=== PATIENT | female | born 1995 | race African-American/Black ===

== ENCOUNTER 2022-12-02 00:03 | Emergency (ER) | payer SELFPAY ==
--- OUTSIDE RECORDS SUMMARY | 2022-12-02 00:09 | XMS REPORT | Continuity of Care Document ---
:1995 Author Organization [facility] t Address [address] [facility]. [address] [place] [address] Care Team Providers Name Role Phone FOUND, PCP NOT Primary Care Physician Unavailable JENNIFER NEVAREZ Attending Clinician Unavailable Steven Narayanan MD Attending Clinician POP ANDERSON Attending Clinician Unavailable STEVEN NARAYANAN Attending Clinician Unavailable Doctor Unassigned, [place]ta Attending Clinician Unavailable Hang FLORES, Lachelle Dent Attending Clinician Unavailable Jennifer Nevarez PA-C Attending Clinician OMKAR GÓMEZ Attending Clinician Unavailable SHAYE KHAN Attending Clinician Unavailable BELINDA DIALLO - Attending Clinician Unavailable DESTINY ERIC Attending Clinician Unavailable ROSALES PALM Attending Clinician Unavailable Court MUSAPDestiny Attending Clinician Cindy ORACLE E BUSINESS DEVELOPER, Brissa R Attending Clinician BRISSA WHITE Attending Clinician Unavailable KAT CASEY Attending Clinician Unavailable [facility]ending [facility]ician Unavailable Renzo Valerio RN, Angy Attending Clinician Unavailable MARTIN MAHAJAN Attending Clinician Unavailable Margarita HERNANDEZ, Lenard Escalante Attending Clinician Ronnie Davis MD Attending Clinician Avtar FLORES, Noemi Phillip Attending Clinician Unavailable Colleen Becerra MD Attending Clinician Martin Mahajan MD Attending Clinician MARNI BELCHER Attending Clinician Unavailable Shanice FLORES, Darcy Hernandez Attending Clinician Unavailable BALBINA INMAN Attending Clinician Unavailable NOREEN FLOREZ Attending Clinician Unavailable 2, [facility] Attending Clinician Unavailable Kamille HERNANDEZ, David Jon Attending Clinician MORELIA CARVALHO Attending Clinician Unavailable Rachel FLORES, Leon Attending Clinician Unavailable [facility] Attending Clinician Unavailable Noreen Florez MD Attending Clinician MEDINA IBARRA Attending Clinician Unavailable VINCENT GUILLEN Attending Clinician Unavailable Brandie Stevenson Attending Clinician Unavailable Gretchen Buckley Attending Clinician Unavailable Lakisha Lewis Attending Clinician Unavailable Lena Fuchs Attending Clinician Unavailable MARTIN MAHAJAN Admitting Clinician Unavailable BELINDA DIALLO - Admitting Clinician Unavailable Lenard Avila MD Admitting Clinician Martin Mahajan MD Admitting Clinician VINCENT GUILLEN Admitting Clinician Unavailable Payers Payer Name Policy Type Policy Number Effective Date Expiration Date S [id number] 2018 00:00:00 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) Pap smear Pap smear Disease Active Uni vers abnormalit abnormalit 09-23 it y of y of y of 00:00: [place] cervix cervix 00 Medical with ASCUS with ASCUS Br anch favoring favoring benign benign Missed Missed Disease Active Univers period period 09-23 ity of 00:00: [place] 00 Medical Branch Family Family Disease Active 2020-03 Univers planning planning 2- [place] Bipolar Bipolar Disease Active 2020-03 Univers affective affective 2- ity of disorder, disorder, 00:00: [place] currently currently 00 Medi malik depressed, depressed, Br anch mild mild Anemia of Anemia of Disease Active 2020-03 Uni vers mother in mother in 2-13 [place]y [place] , , [place] dical condition condition Bran ch Problem Problem [facility] S Health Allergies, Adverse Reactions, Alerts Allergy Allergy Status Severity Reaction(s) Onset Inactive Treating Comm ents Source Name Type Date Date Clinician No known Miscella Active U Not [facility] drug ne[facility] Specified 03-30 [facility] Allergie Allergy 12:05: l s 23 ([facility]) No known Miscella Active U Not Baptis t drug neous Specified 03-30 Hospita Allergie Allergy 12:05: l s 23 ([facility]) No known Miscella Active U Not Baptis t drug neous Specified 03-30 Hospita Allergie Allergy 12:05: l s 23 ([facility]) No known Miscella Active U Not Baptis t drug neous Specified 03-30 Hospita Allergie Allergy 12:05: l s 23 ([facility]) No Known NA Active [facility] Allergie 07-04 Hospita s 14:20: l 16 ([facility]) No Known NA Active [facility] Allergie 07-04 Hospita s 13:50: l 13 ([facility]) No Known NA Active [facility]ism Allergie 07-04 Hospita s 13:38: l 34 ([facility]) NO KNOWN Drug Active Univers ALLERGIE Class ity of S [facility] Social History Social Habit Start Date Stop Date Quantity Comments Source History of Cigarette Smoker Universi ty of tobacco use [facility] Alcohol intake 2021-12-03 2021-12-03 Ex-drinker [facility] 00:00:00 00:00:00 (finding) [facility] Exposure to 2021-11-18 2021-11-28 Not sure [facility] SARS-CoV-2 00:00:00 10:27:00 [facility] (event) Branch Tobacco use and 2021-11-28 2021-11-28 Smokeless tobacco Un iversity of exposure 00:00:00 00:00:00 non-user [facility] time of call 2020-05-30 2020-05-30 05/30/2020 11:28 [facility] 11:28:40 11:28:40 AM Health Sex Assigned At [address] [facility] 00:00:00 00:00:00 Smoking Status Start Date Stop Date Source Unknown if ever smoked [facility] Ex-smoker 2021-11-28 00:00:00 2021-11-28 00:00:[address] [facility] Never smoked [facility] Medications Ordered Filled Start Stop Current Ordering Indication Dosage Frequency Signature Comments Components Source Medication Medication Date Date Medication? Clinician (SIG) Name Name valLonnieovi 2021-03 Yes [id number] 500mg Take 1 Univers r 500 mg 23 tablet by ity of tablet 00:00: mouth in [place] 00 the Medical morning Branch and 1 tablet in the evening. Take 1 tablet BID for 1 week followed by 1 tablet once daily until delivery metroNIDAZO 2021-03- 500mg Take 1 Un kenzie LE (FLAGYL) 04-21 tablet by it y of 500 mg 00:00: 05:59 mouth [place] tablet 00 :00 every 12 Medical (twelve) Branch hours for 7 days. SERTraline 2020-03 Yes 50mg Take 50 mg U nivers 50 mg 2-13 by mouth ity of tablet 14:35: daily. [place] 24 Medical Branch lurasidone 2020-03 Yes 20mg Take 20 mg U nivers (LATUDA) 20 2-13 by mouth. ity of mg tablet 14:35: [address] SERTraline 2020-03 Yes 50mg Take 50 mg U nivers 50 mg 2-13 by mouth ity of tablet 14:35: daily. [address] lurasidone 2020-03 Yes 20mg Take 20 mg U nivers (LATUDA) 20 2-13 by mouth. ity of mg tablet 14:35: [address] SERTraline 2020-03 Yes 50mg Take 50 mg U nivers 50 mg 2-13 by mouth ity of tablet 14:35: daily. [address] lurasidone 2020-03 Yes 20mg Take 20 mg U nivers (LATUDA) 20 2-13 by mouth. ity of mg tablet 14:35: [address] SERTraline 2020-03 Yes 50mg Take 50 mg U nivers 50 mg 2-13 by mouth ity of tablet 14:35: daily. [address] lurasidone 2020-03 Yes 20mg Take 20 mg U nivers (LATUDA) 20 2-13 by mouth. ity of mg tablet 14:35: [address] SERTraline 2020-03 Yes 50mg Take 50 mg U nivers 50 mg 2-13 by mouth ity of tablet 14:35: daily. [address] lurasidone 2020-03 Yes 20mg Take 20 mg U nivers (LATUDA) 20 2-13 by mouth. ity of mg tablet 14:35: [address] SERTraline 2020-03 Yes 50mg Take 50 mg U nivers 50 mg 2-13 by mouth ity of tablet 14:35: daily. [address] lurasidone 2020-03 Yes 20mg Take 20 mg U nivers (LATUDA) 20 2-13 by mouth. ity of mg tablet 14:35: [address] ferrous 2020-03 Yes [id number] 325mg Take 1 Un kenzie sulfate 325 0-18 tablet by ity of mg (65 mg 00:00: mouth 2 [place] iron) 00 (two) Medical tablet times [place] daily. 2020-03 Yes [id number] 1{tbl} Take 1 Univers vitamin 0-18 tablet by ity of w/FA tablet 00:00: mouth [place] 00 daily. Medical Branch docusate 2020-03 Yes [id number] 240mg Take 1 U nivers calcium 240 0-18 capsule by it y of mg capsule 00:00: mouth [place] 00 daily as Medical needed for Branch Constipati on. HYDROcodone 2020-03 Yes [id number] 1{tbl} Take 1 Un kenzie -acetaminop 0-18 tablet by ity of hen 5-325 00:00: mouth [place] mg tablet 00 every 6 Medical (six) Branch hours as needed (Pain scale above 4). Do not exceed 3 grams of acetaminop hen in 24 hours. Indication s: acute pain ibuprofen 2020-03 Yes [id number] 600mg Take 1 Univers 600 mg 0-18 tablet by ity of tablet 00:00: mouth [place] 00 every 6 Medical (six) Branch hours as needed (Pain). Take with food or milk. ferrous 2020-03 Yes [id number] 325mg Take 1 Un k[place] sulfate 325 0-18 tablet by ity of mg (65 mg 00:00: mouth 2 [place] iron) 00 (two) Medical tablet times Branch daily. 2020-03 Yes [id number] 1{tbl} Take 1 Univers vitamin 0-18 tablet by ity of w/FA tablet 00:00: mouth [place] 00 daily. Medical Branch docusate 2020-03 Yes [id number] 240mg Take 1 U nivers calcium 240 0-18 capsule by it y of mg capsule 00:00: mouth once [place] 00 daily as Medical needed for Branch Constipati on. HYDROcodone 2020-03 Yes [id number] 1{tbl} Take 1 Un kenzie -acetaminop 0-18 tablet by ity of hen 5-325 00:00: mouth [place] mg tablet 00 every 6 Medical (six) Branch hours as needed (Pain scale above 4). Do not exceed 3 grams of acetaminop hen in 24 hours. Indication s: acute pain ibuprofen 2020-03 Yes [id number] 600mg Take 1 Univers 600 mg 0-18 tablet by ity of tablet 00:00: mouth [place] 00 every 6 Medical (six) Branch hours as needed (Pain). Take with food or milk. ferrous 2020-03 Yes [id number] 325mg Take 1 Un [place] sulfate 325 0-18 tablet by ity of mg (65 mg 00:00: mouth 2 [place] iron) 00 (two) Medical tablet times Branch daily. 2020-03 Yes [id number] 1{tbl} Take 1 Univers vitamin 0-18 tablet by ity of w/FA tablet 00:00: mouth [place] 00 daily. Medical Branch docusate 2020-03 Yes [id number] 240mg Take 1 U nivers calcium 240 0-18 capsule by it y of mg capsule 00:00: mouth once [place] 00 daily as Medical needed for Branch Constipati on. HYDROcodone 2020-03 Yes [id number] 1{tbl} Take 1 Un kenzie -acetaminop 0-18 tablet by ity of hen 5-325 00:00: mouth [place] mg tablet 00 every 6 Medical (six) Branch hours as needed (Pain scale above 4). Do not exceed 3 grams of acetaminop hen in 24 hours. Indication s: acute pain ibuprofen 2020-03 Yes [id number] 600mg Take 1 Univers 600 mg 0-18 tablet by ity of tablet 00:00: mouth [place] 00 every 6 Medical (six) Branch hours as needed (Pain). Take with food or milk. ferrous 2020-03 Yes [id number] 325mg Take 1 Un [place] sulfate 325 0-18 tablet by ity of mg (65 mg 00:00: mouth 2 [place] iron) 00 (two) Medical tablet times Branch daily. 2020-03 Yes [id number] 1{tbl} Take 1 Univers vitamin 0-18 tablet by ity of w/FA tablet 00:00: mouth [place] 00 daily. Medical Branch docusate 2020-03 Yes [id number] 240mg Take 1 U nivers calcium 240 0-18 capsule by it y of mg capsule 00:00: mouth once [place] 00 daily as Medical needed for Branch Constipati on. HYDROcodone 2020-03 Yes [id number] 1{tbl} Take 1 Un kenzie -acetaminop 0-18 tablet by ity of hen 5-325 00:00: mouth [place] mg tablet 00 every 6 Medical (six) Branch hours as needed (Pain scale above 4). Do not exceed 3 grams of acetaminop hen in 24 hours. Indication s: acute pain ibuprofen 2020-03 Yes [id number] 600mg Take 1 Univers 600 mg 0-18 tablet by ity of tablet 00:00: mouth [place] 00 every 6 Medical (six) Branch hours as needed (Pain). Take with food or milk. ferrous 2020-03 Yes [id number] 325mg Take 1 Un k[place] sulfate 325 0-18 tablet by ity of mg (65 mg 00:00: mouth 2 [place] iron) 00 (two) Medical tablet times Branch daily. 2020-03 Yes [id number] 1{tbl} Take 1 Univers vitamin 0-18 tablet by ity of w/FA tablet 00:00: mouth [place] 00 daily. Medical Branch docusate 2020-03 Yes [id number] 240mg Take 1 U nivers calcium 240 0-18 capsule by it y of mg capsule 00:00: mouth once [place] 00 daily as Medical needed for Branch Constipati on. HYDROcodone 2020-03 Yes [id number] 1{tbl} Take 1 Un kenzie -acetaminop 0-18 tablet by ity of hen 5-325 00:00: mouth [place] mg tablet 00 every 6 Medical (six) Branch hours as needed (Pain scale above 4). Do not exceed 3 grams of acetaminop hen in 24 hours. Indication s: acute pain ibuprofen 2020-03 Yes [id number] 600mg Take 1 Univers 600 mg 0-18 tablet by ity of tablet 00:00: mouth [place] 00 every 6 Medical (six) Branch hours as needed (Pain). Take with food or milk. ferrous 2020-03 Yes [id number] 325mg Take 1 Un [place] sulfate 325 0-18 tablet by ity of mg (65 mg 00:00: mouth 2 [place] iron) 00 (two) Medical tablet times Branch daily. 2020-03 Yes [id number] 1{tbl} Take 1 Univers vitamin 0-18 tablet by ity of w/FA tablet 00:00: mouth [place] 00 daily. Medical Branch docusate 2020-03 Yes [id number] 240mg Take 1 U nivers calcium 240 0-18 capsule by it y of mg capsule 00:00: mouth once [place] 00 daily as Medical needed for Branch Constipati on. HYDROcodone 2020-03 Yes [id number] 1{tbl} Take 1 Un kenzie -acetaminop 0-18 tablet by ity of hen 5-325 00:00: mouth [place] mg tablet 00 every 6 Medical (six) Branch hours as needed (Pain scale above 4). Do not exceed 3 grams of acetaminop hen in 24 hours. Indication s: acute pain ibuprofen 2020-03 Yes [id number] 600mg Take 1 Univers 600 mg 0-18 tablet by ity of tablet 00:00: mouth [place] 00 every 6 Medical (six) Branch hours as needed (Pain). Take with food or milk. valACYclovi 2020-03 Yes [id number] 500mg Take 1 Univers r 500 mg 0-12 tablet by ity of tablet 00:00: mouth 2 (two) Medical times Branch daily. Take 1 tablet BID for 1 week followed by 1 tablet once daily until delivery valACYclovi 2020-03 Yes [id number] 500mg Take 1 Univers r 500 mg 0-12 tablet by ity of tablet 00:00: mouth 2 (two) Medical times Branch daily. Take 1 tablet BID for 1 week followed by 1 tablet once daily until delivery valACYclovi 2020-03 Yes [id number] 500mg Take 1 Univers r 500 mg 0-12 tablet by ity of tablet 00:00: mouth 2 (two) Medical times Branch daily. Take 1 tablet BID for 1 week followed by 1 tablet once daily until delivery valACYclovi 2020-03 Yes [id number] 500mg Take 1 Univers r 500 mg 0-12 tablet by ity of tablet 00:00: mouth 2 (two) Medical times Branch daily. Take 1 tablet BID for 1 week followed by 1 tablet once daily until delivery valACYclovi 2020-03 Yes [id number] 500mg Take 1 Univers r 500 mg 0-12 tablet by ity of tablet 00:00: mouth 2 (two) Medical times Branch daily. Take 1 tablet BID for 1 week followed by 1 tablet once daily until delivery valACYclovi 2020-03- No [id number] 500mg Take 1 Univers r 500 mg 0-12 - tablet by ity o f tablet 00:00: 00:00 mouth 2 [place] 00 : (two) Medical times Branch daily. Take 1 tablet BID for 1 week followed by 1 tablet once daily until delivery Cephalexin 2020-03 No 500mg MIGUE U (Keflex) 0-08 SSTELIZ 500 Mg CAP 14:11: 00 Cephalexin 2020-03 No 500mg Four Times [facility] (Keflex) 0-08 Daily for S 500 Mg CAP 14:11: Health Cephalexin 2021-1 2021- No 500mg Four Times [facility] (Keflex) 0-08 10-16 Daily for S 500 Mg CAP 14:11: 00:00 [facility] 00 :00 Cephalexin 2020-1 1- No 500mg Four Times CHRISTU (Keflex) 0-08 10-16 Daily for S 500 Mg CAP 14:11: 00:00 [facility] 00 :00 Cephalexin 2020-0 No 500mg MIGUE U (Keflex) 6-10 SSTELIZ 500 Mg CAP 17:08: 00 Cephalexin 2020-0 No 500mg MIGUE U (Keflex) 6-10 SSTELIZ 500 Mg CAP 17:08: 00 Cephalexin 2020-0 No 500mg Every 8 CHR ISTU (Keflex) 6-10 Hours S 500 Mg CAP 17:08: Health 00 Cephalexin 2020-0 No 500mg Every 8 CHR ISTU (Keflex) 6-10 Hours S 500 Mg CAP 17:08: Health 00 Cephalexin 2020-0 2021- No 500mg LAUREN TU (Keflex) 09-06-11 SSTELIZ 500 Mg CAP 17:08: 00:00 00 :00 Cephalexin 2020-0 2021- No 500mg LAUREN TU (Keflex) 09-06 07-11 SSTELIZ 500 Mg CAP 17:08: 00:00 00 :00 Cephalexin 1-0 2021- No 500mg Every 8 CH RISTU (Keflex) 6 07-11 Hours S 500 Mg CAP 17:08: 00:00 Health 00 :00 Cephalexin 1-0 2021- No 500mg Every 8 CH RISTU (Keflex) 09-06 07-11 Hours S 500 Mg CAP 17:08: 00:00 Health 00 :00 Cephalexin 2021-0 2021- No 500mg Every 8 CH RISTU (Keflex) 09-06 07-11 Hours S 500 Mg CAP 17:08: 00:00 Health 00 :00 Cephalexin 2021-0 2021- No 500mg Every 8 CH RISTU (Keflex) 09-06 07-11 Hours S 500 Mg CAP 17:08: 00:00 Health 00 :00 No Home No [facility] Meds SSTELIZ No Home No [facility] Meds SSTELIZ No Home No [facility] No Home No [facility] No Home No [facility] No Home No [facility] Health Immunizations Ordered Filled Immunization Date Status Comments [facility] e Immunization Name Name Influenza Virus 2021-02-06 Completed Universit y of Vaccine [facility], 00:00:00 [place] Me dical Preserv and ABX Branch Free 6 MO-64 YRS Influenza Virus 2021-02-06 Completed Universit y of Vaccine [facility] IM, 00:00:00 [place] Me dical Preserv and ABX Branch Free 6 MO-64 YRS Influenza Virus 2021-02-06 Completed Universit y of Vaccine [facility] IM, 00:00:00 [place] Me dical Preserv and ABX Branch Free 6 MO-64 YRS Influenza Virus 2021-02-06 Completed Universit y of Vaccine [facility] IM, 00:00:00 [place] Me dical Preserv and ABX Branch Free 6 MO-64 YRS Influenza Virus 2021-02-06 Completed Universit y of Vaccine [facility] IM, 00:00:00 [place] Me dical Preserv and ABX Branch Free 6 MO-64 YRS Influenza Virus 2021-02-06 Completed Universit y of Vaccine [facility] IM, 00:00:00 [place] Me dical Preserv and ABX Branch Free 6 MO-64 YRS HPV9 2021-01-24 Completed University of 00:00:[address] [facility] HPV9 2021-01-24 Completed University of 00:00:[address] [facility] HPV9 2021-01-24 Completed University of 00:00:[address] [facility] HPV9 2021-01-24 Completed University of 00:00:[address] [facility] HPV9 2021-01-24 Completed University of 00:00:[address] [facility] HPV9 2021-01-24 Completed University of 00:00:[address] [facility] HPV9 2020-03-20 Completed University of 00:00:[address] [facility] HPV9 2020-03-20 Completed University of 00:00:[address] [facility] HPV9 2020-03-20 Completed University of 00:00:[address] [facility] HPV9 2020-03-20 Completed University of 00:00:00 [facility] Branch HPV9 2020-03-20 Completed University of 00:00:[address] [facility] HPV9 2020-03-20 Completed University of 00:00:[address] [facility] HPV9 2020-01-19 Completed University of 00:00:[address] [facility] HPV9 2020-01-19 Completed University of 00:00:[address] [facility] HPV9 2020-01-19 Completed University of 00:00:[address] [facility] HPV9 2020-01-19 Completed University of 00:00:[address] [facility] HPV9 2020-01-19 Completed University of 00:00:[address] [facility] HPV9 2020-01-19 Completed University of 00:00:[address] [facility] TDAP 2015-11-20 Completed University of 00:00:[address] [facility] TDAP 2015-11-20 Completed University of 00:00:[address] [facility] TDAP 2015-11-20 Completed University of 00:00:[address] [facility] TDAP 2015-11-20 Completed University of 00:00:[address] [facility] TDAP 2015-11-20 Completed University of 00:00:[address] [facility] TDAP 2015-11-20 Completed University of 00:00:[address] [facility] Influenza Virus 2015-06-18 Completed Universit y of Vaccine (3+ yrs) 00:00:00 [facility] Influenza Virus 2015-06-18 Completed Universit y of Vaccine (3+ yrs) 00:00:00 [facility] Influenza Virus 2015-06-18 Completed Universit y of Vaccine (3+ yrs) 00:00:00 [facility] Influenza Virus 2015-06-18 Completed Universit y of Vaccine (3+ yrs) 00:00:00 [facility] Influenza Virus 2015-06-18 Completed Universit y of Vaccine (3+ yrs) 00:00:00 [facility] Influenza Virus 2015-06-18 Completed Universit y of Vaccine (3+ yrs) 00:00:00 [facility] Vital Signs Vital Name Observation Time Observation Value Comments Source Systolic blood 2021-11-28 18:26:00 127 mm[Hg] Univer sity of pressure [facility] Diastolic blood 2021-11-28 18:26:00 81 mm[Hg] Unive rsity of pressure [facility] Heart rate 2021-11-28 18:26:00 104 /min [facility] Body height 2021-11-28 18:26:00 162.6 cm [facility] Body weight 2021-11-28 18:26:00 55.157 kg [facility] BMI 2021-11-28 18:26:00 20.87 kg/m2 [facility] BP Diastolic 2021-09-16 18:22:00 103 mm[Hg] [facility] BP Systolic 2021-09-16 18:22:00 147 mm[Hg] [facility] Heart Rate 2021-09-16 18:22:00 92 /min [facility] Respiratory rate 2021-09-16 18:22:00 18 /min [facility] Body Temperature 2021-09-16 18:22:00 98.6 [degF] [facility] BP Diastolic 2021-09-16 18:19:00 103 mm[Hg] [facility] BP Systolic 2021-09-16 18:19:00 147 mm[Hg] [facility] Heart Rate 2021-09-16 18:19:00 92 /min [facility] Respiratory rate 2021-09-16 18:19:00 18 /min [facility] Body Temperature 2021-09-16 18:19:00 98.6 [degF] [facility] BP Diastolic 2021-07-06 03:23:00 81 mm[Hg] [facility] BP Systolic 2021-07-06 03:23:00 133 mm[Hg] [facility] Heart Rate 2021-07-06 03:23:00 90 /min [facility] Respiratory rate 2021-07-06 03:23:00 19 /min [facility] Body Temperature 2021-07-06 03:23:00 98.1 [degF] [facility] BP Diastolic 2021-07-06 00:17:00 81 mm[Hg] [facility] BP Systolic 2021-07-06 00:17:00 133 mm[Hg] [facility] Heart Rate 2021-07-06 00:17:00 90 /min [facility] Respiratory rate 2021-07-06 00:17:00 19 /min [facility] Body Temperature 2021-07-06 00:17:00 98.1 [degF] [facility] BP Diastolic 2021-01-04 14:18:00 76 mm[Hg] [facility] BP Systolic 2021-01-04 14:18:00 126 mm[Hg] [facility] Heart Rate 2021-01-04 14:18:00 92 /min [facility] Respiratory rate 2021-01-04 14:18:00 18 /min [facility] Body Temperature 2021-01-04 14:18:00 98.5 [degF] [facility] BP Diastolic 2021-01-04 10:50:00 72 mm[Hg] [facility] BP Systolic 2021-01-04 10:50:00 116 mm[Hg] [facility] Heart Rate 2021-01-04 10:50:00 81 /min [facility] Respiratory rate 2021-01-04 10:50:00 18 /min [facility] Body Temperature 2021-01-04 10:50:00 98.5 [degF] [facility] BP Diastolic 2020-12-26 10:47:00 74 mm[Hg] [facility] BP Systolic 2020-12-26 10:47:00 128 mm[Hg] [facility] Heart Rate 2020-12-26 10:47:00 82 /min [facility] Respiratory rate 2020-12-26 10:47:00 18 /min [facility] Body Temperature 2020-12-26 10:47:00 99.0 [degF] [facility] BP Diastolic 2020-09-22 15:10:00 70 mm[Hg] [facility] BP Systolic 2020-09-22 15:10:00 118 mm[Hg] [facility] Heart Rate 2020-09-22 15:10:00 80 /min [facility] Respiratory rate 2020-09-22 15:10:00 18 /min [facility] Body Temperature 2020-09-22 15:10:00 98.6 [degF] [facility] BP Diastolic 2020-09-06 17:21:00 75 mm[Hg] [facility] BP Systolic 2020-09-06 17:21:00 111 mm[Hg] [facility] Heart Rate 2020-09-06 17:21:00 71 /min [facility] Respiratory rate 2020-09-06 17:21:00 20 /min [facility] Body Temperature 2020-09-06 17:21:00 98.6 [degF] [facility] BP Diastolic 2020-09-06 11:55:00 75 mm[Hg] [facility] BP Systolic 2020-09-06 11:55:00 111 mm[Hg] [facility] Heart Rate 2020-09-06 11:55:00 71 /min [facility] Respiratory rate 2020-09-06 11:55:00 20 /min [facility] Body Temperature 2020-09-06 11:55:00 98.6 [degF] [facility] Procedures Procedure Date / Time Performing Clinician Source Performed DISCLOSURE AND CONSENT, 2021-11-28 05:01:00 Doctor Unassigned, N o [facility] MEDICAL AND SURGICAL Name Medical Bra [facility] PROCEDURES POCT TEST 2021-11-28 00:00:00 Steven Narayanan [facility] Ther/proph/diag inj 2020-12-27 00:00:[address] [facility] SC/IM Betamethasone acet&sod 2020-12-27 00:00:00 [facility] phosp non-stress test 2020-12-26 00:00:00 [facility] outpt clinic 2020-12-26 00:00:00 [facility] visit Ther/proph/diag inj 2020-12-26 00:00:[address] [facility] SC/IM NON-STRESS TEST 2020-12-26 00:00:00 [facility] URINALYSIS AUTO W/SCOPE 2020-12-26 00:00:00 [facility] ASSAY OF 2020-12-26 00:00:00 [facility] FIBRONECTIN URINE CULTURE/COLONY 2020-12-26 00:00:[address] [facility] COUNT SARSCOV CORONAVIRUS AG 2020-12-26 00:00:00 [facility] outpt clinic 2020-12-26 00:00:00 [facility] visit Betamethasone acet&sod 2020-12-26 00:00:00 [facility] Terbutaline sulfate inj 2020-12-26 00:00:00 [facility] outpt clinic 2020-09-22 00:00:00 [facility] visit ROUTINE VENIPUNCTURE 2020-09-06 00:00:[address] [facility] OB US LIMITED FETUS(S) 2020-09-06 00:00:00 [facility] METABOLIC PANEL IONIZED 2020-09-06 00:00:00 [facility] CA URINALYSIS AUTO W/O 2020-09-06 00:00:[address] [facility] SCOPE CHORIONIC GONADOTROPIN 2020-09-06 00:00:00 [facility] TEST BLOOD TYPING SEROLOGIC 2020-09-06 00:00:00 [facility] ABO BLOOD TYPING SEROLOGIC 2020-09-06 00:00:00 [facility] RH(D) URINE CULTURE/COLONY 2020-09-06 00:00:[address] [facility] COUNT EMERGENCY DEPT VISIT 2020-09-06 00:00:[address] [facility] Limited obstetrical 2020-09-06 00:00:[address] [facility] ultrasound Plan of Care Planned Activity Planned Date Details Comments Source Future Scheduled Test Bacteria Ur Cult [code = JAZMYN 630-4] Future Scheduled Test Bacteria Ur Cult [code = JAZMYN 630-4] Future Scheduled Test Bacteria Ur Cult [code = JAZMYN 630-4] Goal Patient referral [code = [facility] 4970341 ] Goal Patient referral [code = [facility] 4844244 ] Goal Patient referral [code = [facility] 7540241 ] Goal Patient referral [code = [facility] 2911546 ] Instructions Threatened Miscarriage LAUREN CHERIETENATHANAEL Instructions Urinary Tract Infection, CHR ISTUSSTELIZ Adult (DC) Instructions Threatened Miscarriage LAUREN TUSSTENATHANAEL Instructions Urinary Tract Infection, CHR ISTUSSTELIPaola Adult (DC) Instructions Urinary Tract Infections CHR ISTALEX in Adults Instructions Labor JAZMYN Instructions Lowering Your Risk of MIGUE USSTELIPaola Instructions Threatened Miscarriage LAUREN TUSSTENATHANAEL Instructions Urinary Tract Infection, CHR ISTUSSTELIZ Adult (DC) Encounters Start End Encounter Admission Attending Care Care Encounter Source Date/Time Date/Time Type Type Clinicians Facility Department ID 2021-01-29 Outpatient X [facility] JOAO [id number] Univers 06:17:03 [facility] 2021-01-29 Emergency [facility] [id number] Univers 05:36:26 [facility] 2022-03-26 2022-03-26 Outpatient R ROQUE [facility] [id number] Univers 08:30:00 08:30:00 JENNIFER antonio [facility] 2022-02-19 2022-02-19 Telephone ORTIZ Narayanan 1.2.840.114 [id number] Univers 00:00:00 00:00:00 Steven L Y HEALTH 350.1.13.10 i [phone] [address] 2021-12-04 2021-12-04 [facility] [id number] Univers 08:30:00 08:30:00 POP antonio [facility] 2021-12-03 2021-12-03 Telephone ORTIZ Narayanan 1.2.840.114 [id number] Univers 00:00:00 00:00:00 Steven L Y HEALTH 350.1.13.10 i [place] [id number] [address] 2021-12-03 2021-12-03 Telephone ORTIZ Narayanan 1.2.840.114 [id number] Univers 00:00:00 00:00:00 Steven L HEALTH 350.1.13.10 i [place] [id number] [address] 2021-11-28 2021-11-28 [facility] [id number] Univers 10:00:00 14:12:05 [facility] 2021-11-28 2021-11-28 Office ORTIZ Narayanan 1.2.840.114 [id number] Univers 10:00:00 14:12:05 Visit Steven L HEALTH 350.1.13.10 i [place] [id number] [address] 2021-11-28 2021-11-28 Outpatient Amando [facility] [id number] Univers 10:00:00 14:12:05 [facility] 2021-11-28 2021-11-28 Orders Doctor BULL 1.2.840.114 [id number] Univers 00:00:00 00:00:00 Only Unassigned, VIK 350.1.13.10 ity of [place] [facility] 4.2.7.2.686 Moshe as [phone] [facility] [address] [place] 2021-11-18 2021-11-18 Outpatient [facility] [id number] Univers 13:40:00 13:40:00 STEVEN ity [facility] 2021-11-18 2021-11-18 Outpatient [facility] [id number] Univers 13:40:00 13:40:00 STEVEN ity [facility] 2021-11-18 2021-11-18 Telephone ORTIZ Narayanan 1.2.840.114 [id number] Univers 00:00:00 00:00:00 [facility] 350.1.13.10 i ty of [facility] [place].7.2.[place] [id number] [facility] [address] [place] 2021-10-20 2021-10-20 Patient [facility] 1.2.840.114 [id number] Univers 00:00:00 00:00:00 Secure Msg Lachelle Dent SORTER OPERATOR 350.1.13.10 ity of [facility] 4.2.7.2.686 Moshe as MATERNAL [phone] [facility] & CHILD [address] [place] [address] 2021-10-17 2021-10-17 Patient Doctor [facility] 1.2.840.114 [id number] Univers 00:00:00 00:00:00 Secure Msg Unassigned, SORTER OPERATOR 350.1.13.10 ity of [place] [facility] 4.2.7.2.686 Moshe as MATERNAL [phone] [facility] & CHILD [address] [place] [address] 2021-10-15 2021-10-15 Telephone [facility] 1.2.840.114 [id number] Univers 00:00:00 00:00:00 Jennifer SORTER OPERATOR 350.1.13.10 it y of [facility] 4.2.7.2.686 Moshe as MATERNAL [phone] [facility] & CHILD [address] [place] [address] 2021-10-14 2021-10-14 Case [facility] 1.2.710.118 [id number] Univers 00:00:00 00:00:00 Management Jennifer SORTER OPERATOR 350.1.13.10 ity of [facility] 4.2.7.2.686 Moshe as MATERNAL [phone] [address] 2021-09-23 2021-09-23 Office [facility] 1.2.613.264 [id number] Univers 15:30:00 17:10:11 Visit Jennifer SORTER OPERATOR 350.1.13.10 it y of [facility] 4.2.7.2.686 Moshe as MATERNAL [id number] [address] 2021-09-23 2021-09-23 [facility] [id number] Univers 15:30:00 17:10:11 [facility] 2021-09-23 2021-09-23 Outpatient [facility] [id number] Univers 15:30:00 15:30:00 [facility] 2021-09-23 2021-09-23 Orders Doctor JORGITO 1.2.840.114 [id number] Univers 00:00:00 00:00:00 Only Unassigned, VIK 350.1.13.10 ity of [place] [facility] 4.2.7.2.686 Moshe as [phone] [address] 2021-09-23 2021-09-23 Letter [facility] 1.2.691.366 [id number] Univers 00:00:00 00:00:00 (Out) Jennifer SORTER OPERATOR 350.1.13.10 it y of [facility] 4.2.7.2.686 Moshe as MATERNAL [phone] [address] 2021-09-16 2021-09-16 Registered NICHOLAS DRIVER [id number] [place] 18:17:00 20:11:00 Emergency OMKAR [address] [place] [address] 2021-07-06 2021-07-06 Departed SHAYE REYNA AE0 [id number] [place] 00:43:00 03:23:00 Emergency 16 S [facility] 2021-03-30 2021-03-30 [facility] [id number] MORAVIAN 18:04:00 20:42:00 Department S AMANDA UMON Patient T Visit HOSPITA L 2021-03-30 2021-03-30 Emergency YOEL, JOSÉ LUISET QER [id number] Zoroastrianism 12:04:00 12:04:00 DARRELLA Hospi ta l ([facility]) 2021-03-11 2021-03-11 Outpatient [facility] [id number] Univers 13:45:00 14:52:23 JENNIFER antonio [facility] 2021-03-11 2021-03-11 Outpatient [facility] [id number] Univers 13:45:00 14:52:23 JENNIFER antonio [facility] 2021-03-11 2021-03-11 Office [facility] 1.2.727.510 [id number] Univers 13:22:58 14:52:23 Visit Jennifer SORTER OPERATOR 350.1.13.10 it y of REGIONAL 4.2.7.2.686 Moshe as MATERNAL [id number] [facility]ILD [address] [place] [address] 2021-03-11 2021-03-11 Outpatient [facility] [id number] Univers 13:45:00 13:45:00 JENNIFER [facility] 2021-03-07 2021-03-07 Outpatient Amando ERIC [facility] [id number] Univers 10:30:00 10:30:00 DESTINY [facility] 2021-02-28 2021-02-28 Outpatient R ARPITA [facility] [id number] Univers 14:15:00 14:15:00 ROSALES lisandra [facility] 2021-02-14 2021-02-14 Office [facility] 1.2.678.280 [id number] Univers 09:01:57 10:06:29 Visit Jennifer SORTER OPERATOR 350.1.13.10 it y of REGIONAL 4.2.7.2.686 Moshe as MATERNAL [phone] Med ical & [address] 2021-02-14 2021-02-14 Outpatient Amando NEVAREZ [facility] [id number] Univers 09:00:00 10:06:29 JENNIFER [facility] 2021-02-14 2021-02-14 Outpatient Amando NEVAREZ [facility] [id number] Univers 09:00:00 09:00:00 JENNIFER [facility] 2021-02-14 2021-02-14 Orders Doctor JORGITO 1.2.840.114 [id number] Univers 00:00:00 00:00:00 Only Unassigned, VIK 350.1.13.10 ity of [place] [facility] 4.2.7.2.686 Moshe as [phone] [address] 2021-02-13 2021-02-13 Outpatient Amando ERIC [facility] [id number] Univers 15:00:00 15:00:[address] [facility] 2021-02-13 2021-02-13 [address] R [address] [facility] [id number] Univers 15:00:00 15:00:[address] [facility] 2021-02-13 2021-02-13 Telephone [facility] 1.2.305.975 [id number] Univers 00:00:00 00:00:00 Destiny SORTER OPERATOR 350.1.13.10 ity of [facility] 4.2.7.2.686 Moshe as MATERNAL [id number] [facility] & [address] 2021-02-11 2021-02-11 Telephone CourtRE[facility] 1.2.711.407 [id number] Univers 00:00:00 00:00:00 Destiny SORTER OPERATOR 350.1.13.10 ity of [facility] 4.2.7.2.686 Moshe as MATERNAL [id number] [facility] & CHILD [address] [place] [address] 2021-02-06 2021-02-06 Routine [facility] 1.2.840.114 [id number] Univers 14:00:15 15:09:26 Brissa R SORTER OPERATOR 350.1.13.10 ity of Visit [facility] 4.2.7.2.686 Moshe as MATERNAL [id number] [facility] & CHILD [address] [place] [address] 2021-02-06 2021-02-06 Outpatient R CINDY [facility] [id number] Univers 14:00:00 15:09:26 BRISSA [facility] 2021-02-02 2021-02-02 Emergency ER NICHOLAS CASEY [id number] [facility] 14:07:00 16:51:00 KAT 01 S Health 2021-01-31 2021-01-31 Telephone ORTIZ Narayanan 1.2.840.114 [id number] Univers 00:00:00 00:00:[address] [facility] 350.1.13.10 i ty of [place] [id number] [address] 2021-01-24 2021-01-24 [facility] 1.2 .840.114 [id number] Univers 13:00:49 13:47:54 Visit Destiny Eric SORTER OPERATOR 350.1.13.10 ity of REGIONAL 4.2.7.2.686 Moshe as MATERNAL [id number] [facility] & [address] 2021-01-24 2021-01-[address] [facility] [id number] Univers 13:00:00 13:47:54 DESTINY [facility] 2021-01-21 2021-01-21 Outpatient R [facility] [id number] Univers 08:30:00 08:30:00 [facility] 2021-01-21 2021-01-21 Telephone ORTIZ Narayanan 1.2.840.114 [id number] Univers 00:00:00 00:00:[address] [facility] 350.1.13.10 i ty [place] [id number] [address] 2021-01-18 2021-01-18 Nurse Renzo BULL 1.2.840.114 [id number] Univers 00:00:00 00:00:00 Triage VIK Valerio 350.1.13.10 ity [facility] 4.2.7.2.686 Moshe as [id number] [address] 2021-01-18 2021-01-18 Letter [facility] 1.2.840.114 [id number] Univers 00:00:00 00:00:00 (Out) Steven L Y HEALTH 350.1.13.10 i ty [place] [id number] [address] 2021-01-17 2021-01-17 Outpatient [facility] [id number] Univers 14:40:00 14:40:00 MARTIN [facility] 2021-01-17 2021-01-17 Outpatient [facility] [id number] Univers 13:30:00 13:30:00 [facility] 2021-01-15 2021-01-15 Nurse Renzo BULL 1.2.840.114 [id number] Univers 00:00:00 00:00:00 Triage VIK Valerio 350.1.13.10 ity [facility] 4.2.7.2.686 Moshe as [id number] [address] 2021-01-15 2021-01-15 Telephone [facility] 1.2.840.114 [id number] Univers 00:00:00 00:00:00 Steven L Y HEALTH 350.1.13.10 i ty of [place] [id number] [address] 2021-01-15 2021-01-15 Telephone [facility] 1.2.840.114 [id number] Univers 00:00:00 00:00:00 Steven L Y HEALTH 350.1.13.10 i ty of [place] [id number] [address] 2021-01-12 2021-01-14 [facility] Steven Narayanan 1.2.840. 114 [id number] Univers 18:31:00 18:06:00 Encounter Lenard Avila [facility] VIK 350.1.1 3.10 ity of HOSPITAL 4.2.7.2.686 Moshe as [id number] [facility] [address] 2021-01-13 2021-01-13 Anesthesia JORGITO Davis 1.2.840.114 [id number] Univers 20:01:23 20:01:23 Event Ronnie VIK 350.1.13.10 it y of HOSPITAL 4.2.7.2.686 Moshe as [id number] [facility] [address] 2021-01-12 2021-01-13 Surgery JORGITO Avila 1.2.840.114 [id number] Univers 22:50:00 00:43:00 Weinberg VIK 350.1.13.10 it y of [facility] 4.2.7.2.686 Moshe as [id number] [facility] [address] 2021-01-12 2021-01-12 Nurse JORGITO Nova 1.2.840.114 [id number] Univers 00:00:00 00:00:00 Triage Noemi Phillip VIK 350.1.13.10 ity of HOSPITAL 4.2.7.2.686 Moshe as [phone] [facility] [address] 2021-01-12 2021-01-12 Orders Doctor JORGITO 1.2.840.114 [id number] Univers 00:00:00 00:00:00 Only Unassigned, VIK 350.1.13.10 ity of [place] [facility]OSPITAL 4.2.7.2.686 Moshe as [id number] [facility] [address] 2021-01-09 2021-01-09 Orders Doctor JORGITO 1.2.840.114 [id number] Univers 00:00:00 00:00:00 Only Unassigned, VIK 350.1.13.10 ity of [place] HOSPITAL 4.2.7.2.686 Moshe as [phone] [facility] [address] 2021-01-06 2021-01-08 Hospital Colleen Becerra 1.2.840. 114 [id number] Univers 22:48:00 16:59:00 Encounter Martin Mahajan VIK 350.1.13.10 ity of HOSPITAL 4.2.7.2.686 Moshe as [id number] [facility] [address] 2021-01-04 2021-01-04 Departed CODY PETERSON [id number] [place] 11:17:00 14:24:[address] NATHANAEL Room [place] 2021-01-04 2021-01-04 Departed ER NICHOLAS BELCHER AE00 [id number] [place] 11:17:00 14:24:00 Emergency MARNI 79 S [facility] 2021-01-04 2021-01-04 Nurse JORGITO Prasad 1.2.840.114 [id number] Univers 00:00:00 00:00:00 Triage Darcy CHERY 350.1.13.10 it y of [facility] 4.2.7.2.686 Moshe as [id number] [facility] [address] 2021-01-04 2021-01-04 Telephone SHELLY Narayanan 1.2.840.114 [id number] Univers 00:00:00 00:00:00 Steven L Y HEALTH 350.1.13.10 i ty [place] [id number] [address] 2021-01-03 2021-01-03 Routine [facility] 1.2.840.114 [id number] Univers 15:54:06 16:48:17 Steven L Y HEALTH 350.1.13.10 ity of Visit CLINICS [place] [id number] [place] [id number] [place] 2021-01-03 2021-01-03 Outpatient R ORACIO [facility] [id number] Univers 11:40:00 11:40:00 STEVEN ity of [facility] 2020-12-31 2020-12-31 Telephone Oracio [facility] 1.2.840.114 [id number] Univers 00:00:00 00:00:00 Steven L Y HEALTH 350.1.13.10 i ty of CL[place]ICS [place].2.[place] [id number] [place] [id number] [place] 2020-12-27 2020-12-27 Routine Oracio, [facility] 1.2.840.114 [id number] Univers 13:20:21 14:34:50 Steven L Y HEALTH 350.1.13.10 ity of Visit CLINICS 4.2.7.2.686 Mos[place] s [id number] [address] 2020-12-27 2020-12-27 Outpatient Amando [facility] [id number] Univers 13:40:00 13:40:00 [facility] 2020-12-27 2020-12-27 Registered CODY PETERSON AE00 [id number] [place] 07:56:00 07:56:[address] SSTELI Z [place] 2020-12-27 2020-12-27 Registered NICHOLAS BENZ AE00 [id number] [place] 07:56:00 07:56:00 Clinic BALBINA 05 [facility] 2020-12-26 2020-12-26 Departed CODY PETERSON [id number] [place] 10:47:00 17:30:[address] SSTELI Z [place] 2020-12-26 2020-12-26 Departed NICHOLAS CASTLE [id number] [place] 10:47:00 10:47:00 Clinic BALBINA 84 [facility] 2020-12-13 2020-12-13 Routine Oracio, SHELLYIT 1.2.840.114 [id number] Univers 13:29:15 13:49:15 Steven L Y HEALTH 350.1.13.10 ity of Visit CLINICS 4.2.7.2.686 Moshea s [id number] [address] 2020-12-13 2020-12-13 Outpatient Amando [facility] [id number] Univers 13:20:00 13:20:00 [facility] 2020-12-06 2020-12-06 Routine Steven Narayanan Marita [facility] 1.2.840 .114 [id number] Univers 09:50:52 10:51:42 Mahajan, Martin Y HEALTH 350.1.13.10 ity of Visit CL[place] [id number] [address] 2020-12-06 2020-12-06 Routine Steven Narayanan [facility] 1.2.840 .114 [id number] Univers 09:50:52 10:51:42 Martin Mahajan Y HEALTH 350.1.13.10 ity of Visit CL[place]ICS [place] [id number] [address] 2020-12-06 2020-12-06 Outpatient [facility] [id number] Univers 09:40:00 09:40:00 MARTIN ity [facility] 2020-11-30 2020-11-30 Outpatient R VIKKI, [facility] [id number] Univers 15:45:00 15:45:00 NOREEN ity [facility] 2020-11-15 2020-11-15 Outpatient Amando [facility] [id number] Univers 13:30:00 13:30:00 STEVEN ity [facility] 2020-11-01 2020-11-01 Routine Oracio [facility] 1.2.840.114 [id number] Univers 13:47:43 14:35:34 Steven L Y HEALTH 350.1.13.10 ity of Visit CL[place] [id number] [address] 2020-11-01 2020-11-01 Outpatient Amando [facility] [id number] Univers 14:15:00 14:15:00 STEVEN ity [facility] 2020-10-04 2020-10-04 Routine Oracio [facility] 1.2.840.114 [id number] Univers 15:43:57 16:34:19 Steven L Y HEALTH 350.1.13.10 ity of Visit CL[place]ICS [place] [id number] [address] 2020-10-04 2020-10-04 Outpatient Amando [facility] [id number] Univers 15:30:00 15:30:00 STEVEN ity [facility] 2020-09-28 2020-09-28 Employee Relations Manager 2, Amanda-Rosalva Ultrasound [facility] 1 .2.840.114 [id number] Univers 09:02:36 10:02:36 Visit David Simental SORTER OPERATOR 350.1.13.10 ity [facility] 4.2.7.2.686 Moshe as MATERNAL [id number] [facility] & CHILD [address] [place] [address] 2020-09-28 2020-09-28 Outpatient P [facility] [id number] Univers 09:00:00 09:00:[address] [facility] 2020-09-22 2020-09-22 Departed CODY PETERSON [id number] [place] 14:10:00 16:05:[address] [place] 2020-09-22 2020-09-22 Departed [facility] PET[facility] AE0 [id number] [place] 14:10:00 14:10:[address] 2020-09-22 2020-09-22 Nurse JORGITO Ramos 1.2.840.114 [id number] Univers 00:00:00 00:00:00 Triage Anemoodye [place] 350.1.13.10 ity of [facility] 4.2.7.2.686 Moshe as [phone] [facility] [address] 2020-09-09 2020-09-09 Telephone SHELLY Narayanan 1.2.840.114 [id number] Univers 00:00:00 00:00:[address] [facility] 350.1.13.10 i ty of CL[place]ICS [place] [id number] [facility] [address] 2020-09-07 2020-09-07 Employee Relations Manager [facility] 1.2.840.114 [id number] Univers 16:09:55 16:24:55 Visit Noreen Florez [facility] 350.1.13.10 ity of [facility] 4.2.7.2.[place] [id number] [facility] [address] 2020-09-07 2020-09-07 Routine [place], [facility] 1.2.840.114 [id number] Univers 14:20:10 16:05:32 Noreen Y HEALTH 350.1.13.10 ity of Visit CL[place] [id number] [address] 2020-09-07 2020-09-07 Outpatient R VIKKI, [facility] [id number] Univers 13:30:00 13:30:00 [facility] 2020-09-06 2020-09-06 Departed CODY PETERSON [id number] [place] 12:41:00 17:23:[address] SSTE NATHANAEL Room [place] 2020-09-06 2020-09-06 Departed NICHOLAS PETERSON [id number] [place] 11:42:00 17:23:00 Emergency [address] [facility] 2020-09-06 2020-09-06 Outpatient R IBARRA, [facility] [id number] Univers 11:00:00 11:00:00 MEDINA [facility] 2020-09-04 2020-09-04 Telephone ORTIZ Narayanan 1.2.840.114 [id number] Univers 00:00:00 00:00:00 Steven L Y HEALTH 350.1.13.10 i ty [place] [id number] [address] 2020-08-28 2020-08-28 Patient SHELLY Narayanan 1.2.840.114 [id number] Univers 00:00:00 00:00:00 Secure Msg Steven L Y HEALTH 350.1.13.10 [place]y [place] [id number] [address] 2020-08-28 2020-08-28 Patient SHELLY Narayanan 1.2.840.114 [id number] Univers 00:00:00 00:00:00 Secure Msg Steven L Y HEALTH 350.1.13.10 [place] [id number] [address] 2020-08-21 2020-08-21 Telephone ORTIZ Narayanan 1.2.840.114 [id number] Univers 00:00:00 00:00:00 Steven L Y HEALTH 350.1.13.10 i ty [place] [id number] [place] [id number] [place] 2020-08-13 2020-08-13 Telephone ORTIZ Narayanan 1.2.840.114 [id number] Univers 00:00:00 00:00:00 Steven L Y HEALTH 350.1.13.10 i ty [place] [id number] [place] [id number] [place] 2020-08-09 2020-08-09 Employee Relations Manager [facility] 1.2.840.114 [id number] Univers 13:53:26 14:08:26 Visit Steven Narayanan L Y HEALTH 350.1.13.10 ity [place] [id number] [facility] [address] 2020-08-09 2020-08-09 Routine SHELLY Narayanan 1.2.840.114 [id number] Univers 13:25:35 13:49:52 Steven L Y HEALTH 350.1.13.10 ity of Visit [place] [id number] [place] [id number] [place] 2020-08-09 2020-08-09 Outpatient R ORACIO [facility] [id number] Univers 13:30:00 13:30:00 STEVEN ity of [facility] [facility] 2020-08-09 2020-08-09 Orders Doctor JORGITO [id number] Univers 00:00:00 00:00:00 Only Unassigned, VIK 350.1.13.10 ity of [place] 4.2.7.2.686 Moshe as [phone] [facility] [address] 2020-07-13 2020-07-13 Patient Doctor ORTIZ [id number] Univers 00:00:00 00:00:00 Secure Msg Unassigned, Y HEALTH 350.1.13.10 it[place] [facility] [place] [id number] [facility] [address] 2020-07-12 2020-07-12 Employee Relations Manager [facility] UNIVERSIT 1.2.840.114 [id number] Univers 15:35:33 15:50:33 Visit Steven Narayanan [facility] 350.1.13.10 [place] [phone] [facility] [address] 2020-07-12 2020-07-12 Initial Oracio [facility] 1.2.840.114 [id number] [facility] 14:05:25 15:36:[address] [facility] 350.1.13.10 ity of Visit [id number] [place] [id number] [place] 2020-07-12 2020-07-12 Outpatient R ORACIO [facility] [id number] [facility] 13:00:00 13:00:00 [facility] 2020-07-[facility] 2020-07-[address] [facility] [id number] [place] 14:33:25 14:33:25 [facility] 2020-06-04 2020-06-04 Office SARAH Stevenson [facility] Encoun ter/ Legacy 00:00:00 00:00:00 Visit Brandie [id number] Com aakash [id number] Health 2020-05-30 2020-05-30 Office Gretchen Buckley [facility] Encounter/ Legacy 00:00:00 00:00:00 Visit Lakisha Lewis [id number] Lena Jiang 1558 60 Health Results Test Description Test Time Test Comments Results Result Comments Source POCT TEST 2021-11-28 20:06:00 Test Item Value Reference Range Interpretation Comme nts POCT PREG (test code = 1605) Negative On board controls acceptable with C Line (test code = 3574) Yes POCT PREG LOT # (test code = 3575) POCT PREG TEST DATE (test code = 3576) [facility] [id number] 20:06:00 Test Item Value Reference Range Interpretation Comments POCT PREG (test code = 1605) Negative On board controls acceptable with C Yes Line (test code = 3574) POCT PREG LOT # (test code = 3575) POCT PREG TEST DATE (test code = 3576) [facility] [id number] 00:30:00 Test Item Value Reference Range Interpretation Comments Respiratory Virus Source Nasopharyngeal Swab (test code = 79921-6) NICHOLAS De AndaZflkeuSNNH-XeU-7 RNA Resp Ql TITO+sfecr5645-26-78 00:30:00 Test Item Value Reference Range Interpretation Comments Coronavirus (COVID-19)(PCR) (test NEGATIVE Negative code = 40689-8) NICHOLAS De AndaFLUAV RNA Nph Ql TITO+vwo-ptsyi7420-62-09 00:30:00 Test Item Value Reference Range Interpretation Comments Influenza Virus Type A (PCR) (test NEGATIVE Negative code = 91883-4) NICHOLAS De AndaFLUBV RNA Nph Ql TITO+awk-mhmqn8631-42-09 00:30:00 Test Item Value Reference Range Interpretation Comments Influenza Virus Type B (PCR) (test NEGATIVE Negative code = 94789-3) NICHOLAS De AndaRSV RNA Nph Ql TITO+wxi-dvepe3002-18-09 00:30:00 Test Item Value Reference Range Interpretation Comments Respiratory Syncytial Virus (PCR) NEGATIVE Negative (test code = 05384-3) NICHOLAS De 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 idaobta9249-63-39 00:30:00 Test Item Value Reference Range Interpretation Comments N/A (test code = 10431-2) Unknown NICHOLAS HealthPatient has symptoms for condition of xswpnfrk9716-71-71 00:30:00 Test Item Value Reference Range Interpretation Comments N/A (test code = 01341-4) Unknown NICHOLAS HealthPt hospitalized klcf9217-57-24 00:30:00 Test Item Value Reference Range Interpretation Comments N/A (test code = 63405-0) Unknown NICHOLAS HealthPregnancy pmlbmx7358-74-88 00:30:00 Test Item Value Reference Range Interpretation Comments N/A (test code = 81452-1) Unknown NICHOLAS HealthPatient resides in congregate care ellbsmg8729-52-38 00:30:00 Test Item Value Reference Range Interpretation Comments N/A (test code = 11781-9) Unknown [facility] 1 VIEW JZVWNCSE1250-62-31 14:17:00 [facility] 1995 Sex: F[address] [id number] IMAGING REPORTPatient Name: SAM OLVERANealte of Service: [id number]: 24 Sex: F Order #: [id number] Room: ERSDOB: 1995 X-Ray Number: [id number] Record Number: [id number] Hospital Number: [id number] Physician: BELINDA DIALLO -Ordering Physician: KIRILL HU 1 VIEW PORTABLE 03/30/2021 1:26 PM:History: Cough with fever . Covid 19 infection.Comparison: None.Technique: 1 view chestFindings:The cardiomediastinal silhouette is normal. The lungs are clear withoutinfiltrate, effusion, or pneumothorax. The bones are intact.Impression:No acute cardiopulmonary process.Electronically Signed By: Joe Collins M.D., 03/30/2021 2:15 PMLegally authenticated by JASON DIAZ 2021-03-30 14:15:16COVID SYMPTOMATIC ER [id number] 12:50:00 Test Item Value Reference Range Interpretation Comments CORONAVIRUS (COVID-19)BY PCR (test POSITIVE code = [id number]) Urinalysis specimen collection [id number] 11:52:00 Test Item Value Reference Range Interpretation Comments Urine Source (test code = 72960-2) URCATH [facility] HealthColor of Urine by Ivkg1180-70-26 11:52:00 Test Item Value Reference Range Interpretation Comments Urine Color (test code = 28104-6) Yellow Yel-Melissa * [facility] HealthUrine clarity jwtaqsgzkosma9861-30-46 11:52:00 Test Item Value Reference Range Interpretation Comments Urine Appearance (test code = Light Turbid Clear * 20724-3) [facility] HealthUrine pH measurement by automated test [id number] 11:52:00 Test Item Value Reference Range Interpretation Comments Urine pH (test code = 38769-2) 6.5 5.0-8.0 [facility] HealthSpecific gravity of Urine by Automated test gtcgo1375-67-22 11:52:00 Test Item Value Reference Range Interpretation Comments Urine Specific [place] (test code = 1.020 1.005-1.030 67101-3) [facility] HealthUrine protein measurement by automated test strip (mass/volume) 2021-01-04 11:52:00 Test Item Value Reference Range Interpretation Comments Urine Protein (test code = 20455-3) 30 Negative * [facility] HealthUrine glucose measurement by automated test strip (mass/volume) 2021-01-04 11:52:00 Test Item Value Reference Range Interpretation Comments Urine Glucose (UA) (test code = Negative Negative * 91220-7) [facility] HealthKetones [Mass/volume] in Urine by Automated test gqari8096-11-18 11:52:00 Test Item Value Reference Range Interpretation Comments Urine Ketones (test code = 06444-4) 10 Negative * [facility] HealthUrine erythrocytes count by automated test strip (number/volume) 2021-01-04 11:52:00 Test Item Value Reference Range Interpretation Comments Urine Occult Blood (test code = 3+ Negative * 29430-3) [facility] HealthUrine nitrite detection by automated test jvqhd7687-00-40 11:52:00 Test Item Value Reference Range Interpretation Comments Urine Nitrite (test code = 27668-2) Negative Negative [facility] HealthUrine total bilirubin measurement by automated test strip (mass/volume)2021-01-04 11:52:00 Test Item Value Reference Range Interpretation Comments Urine Bilirubin (test code = Negative Negative 95260-3) [facility] HealthUrine urobilinogen measurement by automated test strip (mass/volume)2021-01-04 11:52:00 Test Item Value Reference Range Interpretation Comments Urine Urobilinogen (test code = Negative 0.0-1.0 00429-1) [facility] HealthUrine leukocytes count by automated test strip (number/volume) 2021-01-04 11:52:00 Test Item Value Reference Range Interpretation Comments Urine Leukocyte Esterase (test code = 75 Negative 83877-8) [facility] HealthUrine sediment erythrocyte count by microscopy (number/high power field)2021-01-04 11:52:00 Test Item Value Reference Range Interpretation Comments Urine RBC (test code = 64861-8) 11-30 0-2 [facility] HealthUrine sediment leukocyte count by microscopy (number/high power field)2021-01-04 11:52:00 Test Item Value Reference Range Interpretation Comments Urine WBC (test code = 5821-4) 6-20 0-5 [facility] HealthUrine sediment epithelial cell count by microscopy (number/high power field)2021-01-04 11:52:00 Test Item Value Reference Range Interpretation Comments Urine Epithelial Cells (test code = Few Few 5787-7) [facility] HealthUrine sediment crystal count by microscopy (number/high power field)2021-01-04 11:52:00 Test Item Value Reference Range Interpretation Comments Urine Crystals (test code = None Seen None * 71465-0) [facility] HealthUrine sediment bacteria count by microscopy (number/high power field)2021-01-04 11:52:00 Test Item Value Reference Range Interpretation Comments Urine Bacteria (test code = 5769-5) Few None [facility] HealthUrine sediment casts count by microscopy (number/low power field) 2021-01-04 11:52:00 Test Item Value Reference Range Interpretation Comments Urine Casts (test code = 9842-6) Present None * [facility] HealthYeast detection in urine sediment by light nuphkvseow7306-86-73 11:52:00 Test Item Value Reference Range Interpretation Comments Urine Yeast (test code = 97616-2) None Seen None [facility] comment 11:52:00 Test Item Value Reference Range Interpretation Comments Urinalysis Comment (test * See_Comment [A utomated message] The code = 8262-8) system which generated this result tra nsmitted reference range : *. The reference range was not used to interpr et this result as normal/abnormal . [facility] comment [id number] 11:52:00 Test Item Value Reference Range Interpretation Comments Urine Culture Indicated (test code To follow = 8264-4) [facility] tcwqcn3472-08-02 11:52:00 Test Item Value Reference Range Interpretation Comments Urine Source (test code = 05497-0) URCATH Color of Urine by Jhth7912-53-58 11:52:00 Test Item Value Reference Range Interpretation Comments Urine Color (test code = 98344-0) Yellow Urine clarity kkgfjkunysbwx5848-67-96 11:52:00 Test Item Value Reference Range Interpretation Comments Urine Appearance (test code = Light Turbid 30455-0) Urine pH measurement by automated test kbjrz2193-05-67 11:52:00 Test Item Value Reference Range Interpretation Comments Urine pH (test code = 05640-5) 6.5 Specific gravity of Urine by Automated test znxij7911-45-75 11:52:00 Test Item Value Reference Range Interpretation Comments Urine Specific [place] (test code = 1.020 52905-5) Urine protein measurement by automated test strip (mass/volume)2021-01-04 11:52:00 Test Item Value Reference Range Interpretation Comments Urine Protein (test code = 19191-7) 30 Urine glucose measurement by automated test strip (mass/volume)2021-01-04 11:52:00 Test Item Value Reference Range Interpretation Comments Urine Glucose (UA) (test code = Negative 97742-7) Ketones [Mass/volume] in Urine by Automated test txjpw5955-30-07 11:52:00 Test Item Value Reference Range Interpretation Comments Urine Ketones (test code = 81284-7) 10 Urine erythrocytes count by automated test strip (number/volume)2021-01-04 11:52:00 Test Item Value Reference Range Interpretation Comments Urine Occult Blood (test code = 3+ 17767-1) Urine nitrite detection by automated test ewzgn1365-07-33 11:52:00 Test Item Value Reference Range Interpretation Comments Urine Nitrite (test code = 86140-5) Negative Urine total bilirubin measurement by automated test strip (mass/volume) 2021-01-04 11:52:00 Test Item Value Reference Range Interpretation Comments Urine Bilirubin (test code = Negative 60617-2) Urine urobilinogen measurement by automated test strip (mass/volume)2021-01-04 11:52:00 Test Item Value Reference Range Interpretation Comments Urine Urobilinogen (test code = Negative 78736-7) Urine leukocytes count by automated test strip (number/volume)2021-01-04 11:52:00 Test Item Value Reference Range Interpretation Comments Urine Leukocyte Esterase (test code = 75 38615-0) Urine sediment erythrocyte count by microscopy (number/high power field) 2021-01-04 11:52:00 Test Item Value Reference Range Interpretation Comments Urine RBC (test code = 65523-6) 11-30 Urine sediment leukocyte count by microscopy (number/high power field)2021-01-04 11:52:00 Test Item Value Reference Range Interpretation Comments Urine WBC (test code = 5821-4) 6-20 Urine sediment epithelial cell count by microscopy (number/high power field) 2021-01-04 11:52:00 Test Item Value Reference Range Interpretation Comments Urine Epithelial Cells (test code = Few 5787-7) Urine sediment crystal count by microscopy (number/high power field)2021-01-04 11:52:00 Test Item Value Reference Range Interpretation Comments Urine Crystals (test code = None Seen 61835-9) Urine sediment bacteria count by microscopy (number/high power field)2021-01-04 11:52:00 Test Item Value Reference Range Interpretation Comments Urine Bacteria (test code = 5769-5) Few Urine sediment casts count by microscopy (number/low power field)2021-01-04 11:52:00 Test Item Value Reference Range Interpretation Comments Urine Casts (test code = 9842-6) Present Yeast detection in urine sediment by light rjhvxlhusz6198-34-69 11:52:00 Test Item Value Reference Range Interpretation Comments Urine Yeast (test code = 76861-6) None Seen Service comment 11:52:00 Test Item Value Reference Range Interpretation Comments Urinalysis Comment (test code = 8262-8) * Service comment 11:52:00 Test Item Value Reference Range Interpretation Comments Urine Culture Indicated (test code To follow = 8264-4) Vaginal fluid fibronectin dotavaqad2764-16-48 12:00:00 Test Item Value Reference Range Interpretation Comments Fibronectin (test Negative See_Comment [Au tomated message] code = 16241-3) The system [employer] generated this result transmitted ref erence range: *. The reference range was not used to int erpret this result as normal/abnormal . NICHOLAS HealthVaginal fluid fibronectin aktfnjutn7585-46-38 12:00:00 Test Item Value Reference Range Interpretation Comments Fibronectin (test Negative See_Comment [Au tomated message] code = 50069-5) The system [employer] generated this result transmitted ref erence range: *. The reference range was not used to int erpret this result as normal/abnormal . [facility] HealthVaginal fluid fibronectin ddbkilxop9543-22-19 12:00:00 Test Item Value Reference Range Interpretation Comments Fibronectin (test code = Negative 51035-8) Vaginal fluid fibronectin moewciwje2937-19-24 12:00:00 Test Item Value Reference Range Interpretation Comments Fibronectin (test code = Negative 96876-6) Specimen source [id number] 11:00:00 Test Item Value Reference Range Interpretation Comments SARS CoV-2 Rapid Source (test code Nasal swab = 76621-0) NICHOLAS De AndaSARS-CoV+SARS-CoV-2(COVID-19)Ag[Presence]2020-12-26 11:00:00 Test Item Value Reference Range Interpretation Comments SARS-CoV-2 Antigen (Rapid) (test Negative Negative code = 65640-9) NICHOLAS De 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 orisahr4091-61-93 11:00:00 Test Item Value Reference Range Interpretation Comments N/A (test code = 33160-1) No NICHOLAS HealthPatient has symptoms for condition of fijukxfh3891-45-21 11:00:00 Test Item Value Reference Range Interpretation Comments N/A (test code = 40878-3) No NICHOLAS HealthPt hospitalized [id number] 11:00:00 Test Item Value Reference Range Interpretation Comments N/A (test code = 37243-4) No NICHOLAS HealthPregnancy kwzafd5877-00-70 11:00:00 Test Item Value Reference Range Interpretation Comments N/A (test code = 53333-0) NICHOLAS HealthPatient resides in congregate care juqrcra4636-93-45 11:00:00 Test Item Value Reference Range Interpretation Comments N/A (test code = 95678-0) No NICHOLAS HealthSpecimen source [id number] 11:00:00 Test Item Value Reference Range Interpretation Comments SARS CoV-2 Rapid Source (test code Nasal swab = 63882-5) NICHOLAS De AndaSARS-CoV+SARS-CoV-2(COVID-19)Ag[Presence]2020-12-26 11:00:00 Test Item Value Reference Range Interpretation Comments SARS-CoV-2 Antigen (Rapid) (test Negative Negative code = 77093-9) NICHOLAS De 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 rsmktil3810-25-21 11:00:00 Test Item Value Reference Range Interpretation Comments N/A (test code = 65315-1) No NICHOLAS HealthPatient has symptoms for condition of tzrniqwi7168-28-25 11:00:00 Test Item Value Reference Range Interpretation Comments N/A (test code = 53004-1) No [facility]59 11:00:00 Test Item Value Reference Range Interpretation Comments N/A (test code = 32297-5) No NICHOLAS HealthPregnancy dzjemb0324-56-46 11:00:00 Test Item Value Reference Range Interpretation Comments N/A (test code = 57260-0) NICHOLAS De AndaPatient resides in congregate care zdewtrf7271-31-42 11:00:00 Test Item Value Reference Range Interpretation Comments N/A (test code = 39512-3) No NICHOLAS HealthSpecimen source [id number] 11:00:00 Test Item Value Reference Range Interpretation Comments SARS CoV-2 Rapid Source (test code Nasal swab = 18526-8) SARS-CoV+SARS-CoV-2(COVID-19)Ag[Presence]2020-12-26 11:00:00 Test Item Value Reference Range Interpretation Comments SARS-CoV-2 Antigen (Rapid) (test Negative code = 90593-3) 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 govtspq5459-51-17 11:00:00 Test Item Value Reference Range Interpretation Comments N/A (test code = 90046-4) No Patient has symptoms for condition of jcmqsytq1885-51-67 11:00:00 Test Item Value Reference Range Interpretation Comments N/A (test code = 21836-3) No Pt hospitalized poyz5064-00-43 11:00:00 Test Item Value Reference Range Interpretation Comments N/A (test code = 72539-9) No wbbkrd9365-01-54 11:00:00 Test Item Value Reference Range Interpretation Comments N/A (test code = 05027-8) Patient resides in congregate care ojqleix9626-07-10 11:00:00 Test Item Value Reference Range Interpretation Comments N/A (test code = 75951-3) No Specimen source [id number] 11:00:00 Test Item Value Reference Range Interpretation Comments SARS CoV-2 Rapid Source (test code Nasal swab = 78082-2) SARS-CoV+SARS-CoV-2(COVID-19)Ag[Presence]2020-12-26 11:00:00 Test Item Value Reference Range Interpretation Comments SARS-CoV-2 Antigen (Rapid) (test Negative code = 67860-8) 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 kqcdgsy7195-80-55 11:00:00 Test Item Value Reference Range Interpretation Comments N/A (test code = 86841-3) No Patient has symptoms for condition of hvfhjpwk2201-00-47 11:00:00 Test Item Value Reference Range Interpretation Comments N/A (test code = 97264-3) No Pt hospitalized bc ncdu1511-87-71 11:00:00 Test Item Value Reference Range Interpretation Comments N/A (test code = 18661-4) No siclfp9239-95-91 11:00:00 Test Item Value Reference Range Interpretation Comments N/A (test code = 07670-8) Patient resides in congregate care urcwxnn5375-88-54 11:00:00 Test Item Value Reference Range Interpretation Comments N/A (test code = 56430-5) No Urinalysis specimen collection aokgsh6616-44-60 10:50:00 Test Item Value Reference Range Interpretation Comments Urine Source (test code = 58861-2) URINE NICHOLAS HealthColor of Urine by Zgnw2740-16-72 10:50:00 Test Item Value Reference Range Interpretation Comments Urine Color (test code = 15087-0) Yellow Yel-Melissa * [facility] HealthUrine clarity vrclhahuhlabv5327-23-25 10:50:00 Test Item Value Reference Range Interpretation Comments Urine Appearance (test code = 99009-5) Clear Clear * [facility] HealthUrine pH measurement by automated test omztl5350-84-63 10:50:00 Test Item Value Reference Range Interpretation Comments Urine pH (test code = 68925-9) 6.0 5.0-8.0 [facility] HealthSpecific gravity of Urine by Automated test lalcs5243-64-47 10:50:00 Test Item Value Reference Range Interpretation Comments Urine Specific [place] (test code = 1.029 1.005-1.030 66554-8) [facility] HealthUrine protein measurement by automated test strip (mass/volume) 2020-12-26 10:50:00 Test Item Value Reference Range Interpretation Comments Urine Protein (test code = 71820-1) 10 Negative * [facility] HealthUrine glucose measurement by automated test strip (mass/volume) 2020-12-26 10:50:00 Test Item Value Reference Range Interpretation Comments Urine Glucose (UA) (test code = Negative Negative * 74065-0) [facility] HealthKetones [Mass/volume] in Urine by Automated test sefal6460-25-17 10:50:00 Test Item Value Reference Range Interpretation Comments Urine Ketones (test code = 78809-2) Negative Negative * [facility] HealthUrine erythrocytes count by automated test strip (number/volume) 2020-12-26 10:50:00 Test Item Value Reference Range Interpretation Comments Urine Occult Blood (test code = Negative Negative * 83538-9) [facility] HealthUrine nitrite detection by automated test mxqgh8417-88-05 10:50:00 Test Item Value Reference Range Interpretation Comments Urine Nitrite (test code = 46858-7) Negative Negative [facility] HealthUrine total bilirubin measurement by automated test strip (mass/volume)2020-12-26 10:50:00 Test Item Value Reference Range Interpretation Comments Urine Bilirubin (test code = Negative Negative 90626-5) [facility] HealthUrine urobilinogen measurement by automated test strip (mass/volume)2020-12-26 10:50:00 Test Item Value Reference Range Interpretation Comments Urine Urobilinogen (test code = Negative 0.0-1.0 11134-1) [facility] HealthUrine leukocytes count by automated test strip (number/volume) 2020-12-26 10:50:00 Test Item Value Reference Range Interpretation Comments Urine Leukocyte Esterase (test code = 25 Negative 29399-3) [facility] HealthUrine sediment erythrocyte count by microscopy (number/high power field)2020-12-26 10:50:00 Test Item Value Reference Range Interpretation Comments Urine RBC (test code = 62257-9) 0-2 0-2 [facility] HealthUrine sediment leukocyte count by microscopy (number/high power field)2020-12-26 10:50:00 Test Item Value Reference Range Interpretation Comments Urine WBC (test code = 5821-4) 0-5 0-5 [facility] HealthUrine sediment epithelial cell count by microscopy (number/high power field)2020-12-26 10:50:00 Test Item Value Reference Range Interpretation Comments Urine Epithelial Cells (test code = None Seen Few 5787-7) [facility] HealthUrine sediment crystal count by microscopy (number/high power field)2020-12-26 10:50:00 Test Item Value Reference Range Interpretation Comments Urine Crystals (test code = None Seen None * 82093-6) [facility] HealthUrine sediment bacteria count by microscopy (number/high power field)2020-12-26 10:50:00 Test Item Value Reference Range Interpretation Comments Urine Bacteria (test code = 5769-5) Few None [facility] HealthUrine sediment casts count by microscopy (number/low power field) 2020-12-26 10:50:00 Test Item Value Reference Range Interpretation Comments Urine Casts (test code = 9842-6) Present None * [facility] HealthUrine sediment hyaline cast count by microscopy (number/low power field)2020-12-26 10:50:00 Test Item Value Reference Range Interpretation Comments Urine Hyaline Casts (test code = 11-20 0-1 5796-8) [facility] HealthYeast detection in urine sediment by light kkdeywoyon2520-00-41 10:50:00 Test Item Value Reference Range Interpretation Comments Urine Yeast (test code = 18017-0) None Seen None [facility] comment 10:50:00 Test Item Value Reference Range Interpretation Comments Urinalysis Comment (test * See_Comment [A utomated message] The code = 8262-8) system which generated this result tra nsmitted reference range : *. The reference range was not used to interpr et this result as normal/abnormal . [facility] comment 10:50:00 Test Item Value Reference Range Interpretation Comments Urine Culture Indicated (test code To follow = 8264-4) [facility] HealthUrine sediment hyaline cast count by microscopy (number/low power field)2020-12-26 10:50:00 Test Item Value Reference Range Interpretation Comments Urine Hyaline Casts (test code = 02-16 0-1 5796-8) [facility] HealthUrine sediment casts count by microscopy (number/low power field) 2020-12-26 10:50:00 Test Item Value Reference Range Interpretation Comments Urine Casts (test code = 9842-6) Present Urine sediment hyaline cast count by microscopy (number/low power field) 2020-12-26 10:50:00 Test Item Value Reference Range Interpretation Comments Urine Hyaline Casts (test code = 02-16 5796-8) Yeast detection in urine sediment by light [id number] 10:50:00 Test Item Value Reference Range Interpretation Comments Urine Yeast (test code = 19844-2) None Seen Service comment 10:50:00 Test Item Value Reference Range Interpretation Comments Urinalysis Comment (test code = 8262-8) * Service comment 10:50:00 Test Item Value Reference Range Interpretation Comments Urine Culture Indicated (test code To follow = 8264-4) Urine sediment hyaline cast count by microscopy (number/low power field) 2020-12-26 10:50:00 Test Item Value Reference Range Interpretation Comments Urine Hyaline Casts (test code = 02-16 5796-8) Urinalysis specimen collection [id number] 10:50:00 Test Item Value Reference Range Interpretation Comments Urine Source (test code = 77716-2) URINE Color of Urine by [id number] 10:50:00 Test Item Value Reference Range Interpretation Comments Urine Color (test code = 15850-9) Yellow Urine clarity [id number] 10:50:00 Test Item Value Reference Range Interpretation Comments Urine Appearance (test code = 85514-9) Clear Urine pH measurement by automated test [id number] 10:50:00 Test Item Value Reference Range Interpretation Comments Urine pH (test code = 37386-0) 6.0 Specific gravity of Urine by Automated test [id number] 10:50:00 Test Item Value Reference Range Interpretation Comments Urine Specific [place] (test code = 1.029 26799-6) Urine protein measurement by automated test strip (mass/volume)2020-12-26 10:50:00 Test Item Value Reference Range Interpretation Comments Urine Protein (test code = 69539-5) 10 Urine glucose measurement by automated test strip (mass/volume)2020-12-26 10:50:00 Test Item Value Reference Range Interpretation Comments Urine Glucose (UA) (test code = Negative 35862-9) Ketones [Mass/volume] in Urine by Automated test [id number] 10:50:00 Test Item Value Reference Range Interpretation Comments Urine Ketones (test code = 53744-1) Negative Urine erythrocytes count by automated test strip (number/volume)2020-12-26 10:50:00 Test Item Value Reference Range Interpretation Comments Urine Occult Blood (test code = Negative 68868-0) Urine nitrite detection by automated test [id number] 10:50:00 Test Item Value Reference Range Interpretation Comments Urine Nitrite (test code = 41486-4) Negative Urine total bilirubin measurement by automated test strip (mass/volume) 2020-12-26 10:50:00 Test Item Value Reference Range Interpretation Comments Urine Bilirubin (test code = Negative 18648-2) Urine urobilinogen measurement by automated test strip (mass/volume)2020-12-26 10:50:00 Test Item Value Reference Range Interpretation Comments Urine Urobilinogen (test code = Negative 74193-0) Urine leukocytes count by automated test strip (number/volume)2020-12-26 10:50:00 Test Item Value Reference Range Interpretation Comments Urine Leukocyte Esterase (test code = 25 82317-5) Urine sediment erythrocyte count by microscopy (number/high power field) 2020-12-26 10:50:00 Test Item Value Reference Range Interpretation Comments Urine RBC (test code = 07496-4) 0-2 Urine sediment leukocyte count by microscopy (number/high power field)2020-12-26 10:50:00 Test Item Value Reference Range Interpretation Comments Urine WBC (test code = 5821-4) 0-5 Urine sediment epithelial cell count by microscopy (number/high power field) 2020-12-26 10:50:00 Test Item Value Reference Range Interpretation Comments Urine Epithelial Cells (test code = None Seen 5787-7) Urine sediment crystal count by microscopy (number/high power field)2020-12-26 10:50:00 Test Item Value Reference Range Interpretation Comments Urine Crystals (test code = None Seen 16524-9) Urine sediment bacteria count by microscopy (number/high power field)2020-12-26 10:50:00 Test Item Value Reference Range Interpretation Comments Urine Bacteria (test code = 5769-5) Few Ketones [Mass/volume] in Urine by Automated test [id number] 14:30:00 Test Item Value Reference Range Interpretation Comments Urine Ketones (test code = 49706-3) Negative Negative * [facility] erythrocytes count by automated test strip (number/volume) 2020-09-22 14:30:00 Test Item Value Reference Range Interpretation Comments Urine Occult Blood (test code = Negative Negative * 57427-5) [facility] nitrite detection by automated test [id number] 14:30:00 Test Item Value Reference Range Interpretation Comments Urine Nitrite (test code = 01629-9) Negative Negative [facility] total bilirubin measurement by automated test strip (mass/volume)2020-09-22 14:30:00 Test Item Value Reference Range Interpretation Comments Urine Bilirubin (test code = Negative Negative 59703-7) [facility]rine urobilinogen measurement by automated test strip (mass/volume)2020-09-22 14:30:00 Test Item Value Reference Range Interpretation Comments Urine Urobilinogen (test code = Negative 0.0-1.0 17779-2) [facility] leukocytes count by automated test strip (number/volume) 2020-09-22 14:30:00 Test Item Value Reference Range Interpretation Comments Urine Leukocyte Esterase (test code = 25 Negative 25356-3) [facility] sediment erythrocyte count by microscopy (number/high power field)2020-09-22 14:30:00 Test Item Value Reference Range Interpretation Comments Urine RBC (test code = 75118-6) 0-2 0-2 [facility] sediment leukocyte count by microscopy (number/high power field)2020-09-22 14:30:00 Test Item Value Reference Range Interpretation Comments Urine WBC (test code = 5821-4) 0-5 0-5 [facility] sediment epithelial cell count by microscopy (number/high power field)2020-09-22 14:30:00 Test Item Value Reference Range Interpretation Comments Urine Epithelial Cells (test code = None Seen Few 5787-7) [facility] sediment crystal count by microscopy (number/high power field)2020-09-22 14:30:00 Test Item Value Reference Range Interpretation Comments Urine Crystals (test code = None Seen None * 58367-1) [facility] sediment bacteria count by microscopy (number/high power field)2020-09-22 14:30:00 Test Item Value Reference Range Interpretation Comments Urine Bacteria (test code = 5769-5) Packed None [facility] sediment casts count by microscopy (number/low power field) 2020-09-22 14:30:00 Test Item Value Reference Range Interpretation Comments Urine Casts (test code = 9842-6) Present None * [facility]rine sediment hyaline cast count by microscopy (number/low power field)2020-09-22 14:30:00 Test Item Value Reference Range Interpretation Comments Urine Hyaline Casts (test code = 11-20 0-1 5796-8) [facility] HealthYeast detection in urine sediment by light [id number] 14:30:00 Test Item Value Reference Range Interpretation Comments Urine Yeast (test code = 70577-9) None Seen None [facility] comment [id number] 14:30:00 Test Item Value Reference Range Interpretation Comments Urinalysis Comment (test * See_Comment [A utomated message] The code = 8262-8) system which generated this result tra nsmitted reference range : *. The reference range was not used to interpr et this result as normal/abnormal . [facility] [id number] 14:30:00 Test Item Value Reference Range Interpretation Comments Urine Source (test code = 52275-5) [facility]INE [facility] by [id number] 14:30:00 Test Item Value Reference Range Interpretation Comments Urine Color (test code = 88847-1) Lt Yellow Yel-Melissa * [facility] clarity [id number] 14:30:00 Test Item Value Reference Range Interpretation Comments Urine Appearance (test code = 40604-9) Clear Clear * [facility] pH measurement by automated test [id number] 14:30:00 Test Item Value Reference Range Interpretation Comments Urine pH (test code = 52678-4) 6.0 5.0-8.0 [facility] gravity of Urine by Automated test [id number] 14:30:00 Test Item Value Reference Range Interpretation Comments Urine Specific [place] (test code = 1.027 1.005-1.030 16578-6) [facility] HealthUrine protein measurement by automated test strip (mass/volume) 2020-09-22 14:30:00 Test Item Value Reference Range Interpretation Comments Urine Protein (test code = 21112-1) Negative Negative * [facility] glucose measurement by automated test strip (mass/volume) 2020-09-22 14:30:00 Test Item Value Reference Range Interpretation Comments Urine Glucose (UA) (test code = Negative Negative * 71266-1) [facility] [id number] 14:30:00 Test Item Value Reference Range Interpretation Comments Urine Source (test code = 98276-4) URINE Color of Urine by [id number] 14:30:00 Test Item Value Reference Range Interpretation Comments Urine Color (test code = 54087-5) Lt Yellow Urine clarity [id number] 14:30:00 Test Item Value Reference Range Interpretation Comments Urine Appearance (test code = 20611-7) Clear Urine pH measurement by automated test [id number] 14:30:00 Test Item Value Reference Range Interpretation Comments Urine pH (test code = 54632-8) 6.0 Specific gravity of Urine by Automated test [id number] 14:30:00 Test Item Value Reference Range Interpretation Comments Urine Specific [place] (test code = 1.027 72589-4) Urine protein measurement by automated test strip (mass/volume)2020-09-22 14:30:00 Test Item Value Reference Range Interpretation Comments Urine Protein (test code = 20382-9) Negative Urine glucose measurement by automated test strip (mass/volume)2020-09-22 14:30:00 Test Item Value Reference Range Interpretation Comments Urine Glucose (UA) (test code = Negative 91857-2) Ketones [Mass/volume] in Urine by Automated test [id number] 14:30:00 Test Item Value Reference Range Interpretation Comments Urine Ketones (test code = 74013-1) Negative Urine erythrocytes count by automated test strip (number/volume)2020-09-22 14:30:00 Test Item Value Reference Range Interpretation Comments Urine Occult Blood (test code = Negative 53235-6) Urine nitrite detection by automated test [id number] 14:30:00 Test Item Value Reference Range Interpretation Comments Urine Nitrite (test code = 82779-8) Negative Urine total bilirubin measurement by automated test strip (mass/volume) 2020-09-22 14:30:00 Test Item Value Reference Range Interpretation Comments Urine Bilirubin (test code = Negative 10761-2) Urine urobilinogen measurement by automated test strip (mass/volume)2020-09-22 14:30:00 Test Item Value Reference Range Interpretation Comments Urine Urobilinogen (test code = Negative 83565-5) Urine leukocytes count by automated test strip (number/volume)2020-09-22 14:30:00 Test Item Value Reference Range Interpretation Comments Urine Leukocyte Esterase (test code = 25 71772-4) Urine sediment erythrocyte count by microscopy (number/high power field) 2020-09-22 14:30:00 Test Item Value Reference Range Interpretation Comments Urine RBC (test code = 05265-9) 0-2 Urine sediment leukocyte count by microscopy (number/high power field)2020-09-22 14:30:00 Test Item Value Reference Range Interpretation Comments Urine WBC (test code = 5821-4) 0-5 Urine sediment epithelial cell count by microscopy (number/high power field) 2020-09-22 14:30:00 Test Item Value Reference Range Interpretation Comments Urine Epithelial Cells (test code = None Seen 5787-7) Urine sediment crystal count by microscopy (number/high power field)2020-09-22 14:30:00 Test Item Value Reference Range Interpretation Comments Urine Crystals (test code = None Seen 57945-8) Urine sediment bacteria count by microscopy (number/high power field)2020-09-22 14:30:00 Test Item Value Reference Range Interpretation Comments Urine Bacteria (test code = 5769-5) Packed Urine sediment casts count by microscopy (number/low power field)2020-09-22 14:30:00 Test Item Value Reference Range Interpretation Comments Urine Casts (test code = 9842-6) Present Urine sediment hyaline cast count by microscopy (number/low power field) 2020-09-22 14:30:00 Test Item Value Reference Range Interpretation Comments Urine Hyaline Casts (test code = 11-20 5796-8) Yeast detection in urine sediment by light [id number] 14:30:00 Test Item Value Reference Range Interpretation Comments Urine Yeast (test code = 54378-0) None Seen Service comment 14:30:00 Test Item Value Reference Range Interpretation Comments Urinalysis Comment (test code = 8262-8) * Venous whole blood sodium measurement (moles/volume)2020-09-06 16:03:00 Test Item Value Reference Range Interpretation Comments Bedside Sodium (test code = 36822-1) 139 136-145 [facility] whole blood potassium measurement (moles/volume)2020-09-06 16:03:00 Test Item Value Reference Range Interpretation Comments Bedside Potassium (test code = 05390-6) 3.6 3.5-5.1 [facility] Health[facility] whole blood chloride measurement (moles/volume)2020-09-06 16:03:00 Test Item Value Reference Range Interpretation Comments Bedside Chloride (test code = 55431-6) 100 100-112 [facility] whole blood total carbon dioxide measurement (moles/volume)2020-09-06 16:03:00 Test Item Value Reference Range Interpretation Comments Bedside Total CO2 (test code = 2026-) 25.0 24.0-33.0 [facility] whole blood urea nitrogen (BUN) measurement (mass/volume) 2020-09-06 16:03:00 Test Item Value Reference Range Interpretation Comments Bedside Blood Urea Nitrogen (test code 9 09-16 = 12565-6) [facility] creatinine measurement (mass/volume)2020-09-06 16:03:00 Test Item Value Reference Range Interpretation Comments Bedside Creatinine (test code = 0.5 0.7-1.3 46040-3) [facility] whole blood glucose measurement (mass/volume)2020-09-06 16:03:00 Test Item Value Reference Range Interpretation Comments Bedside Glucose (test code = 60433-7) 82 60-100 [facility] blood ionized calcium measurement (moles/volume)2020-09-06 16:03:00 Test Item Value Reference Range Interpretation Comments Bedside Whole Blood Ionized Calcium 1.22 1.12-1.32 (test code = 1993-) [facility]Blood anion [id number] 16:03:00 Test Item Value Reference Range Interpretation Comments Bedside Anion Gap (test code = 37769-6) 19 8-18 [facility]GFR estimate [id number] 16:03:00 Test Item Value Reference Range Interpretation Comments Estimat Glomerular Filtration Rate 163 90-142 (test code = 546631640) [facility] blood hemoglobin measurement (mass/volume)2020-09-06 16:03:00 Test Item Value Reference Range Interpretation Comments Bedside Hemoglobin (test code = 13.6 12.0-15.2 42325-9) [facility]ous blood hematocrit (volume fraction)2020-09-06 16:03:00 Test Item Value Reference Range Interpretation Comments Bedside Hematocrit (test code = 40.0 35.0-45.0 97432-4) [facility] whole blood sodium measurement (moles/volume)2020-09-06 16:03:00 Test Item Value Reference Range Interpretation Comments Bedside Sodium (test code = 93454-9) 139 136-145 [facility] whole blood potassium measurement (moles/volume)2020-09-06 16:03:00 Test Item Value Reference Range Interpretation Comments Bedside Potassium (test code = 70838-9) 3.6 3.5-5.1 [facility] whole blood chloride measurement (moles/volume)2020-09-06 16:03:00 Test Item Value Reference Range Interpretation Comments Bedside Chloride (test code = 56275-8) 100 100-112 [facility]Ven[facility] whole blood total carbon dioxide measurement (moles/volume)2020-09-06 16:03:00 Test Item Value Reference Range Interpretation Comments Bedside Total CO2 (test code = 7-1) 25.0 24.0-33.0 [facility] whole blood urea nitrogen (BUN) measurement (mass/volume) 2020-09-06 16:03:00 Test Item Value Reference Range Interpretation Comments Bedside Blood Urea Nitrogen (test code 9 6-20 = 94190-9) [facility] creatinine measurement (mass/volume)2020-09-06 16:03:00 Test Item Value Reference Range Interpretation Comments Bedside Creatinine (test code = 0.5 0.7-1.3 47658-1) [facility]Venous whole blood glucose measurement (mass/volume)2020-09-06 16:03:00 Test Item Value Reference Range Interpretation Comments Bedside Glucose (test code = 45478-0) 82 60-[address] [facility] calcium measurement (moles/volume)2020-09-06 16:03:00 Test Item Value Reference Range Interpretation Comments Bedside Whole Blood Ionized Calcium 1.22 1.12-1.32 (test code = 1994-3) [facility] [id number] 16:03:00 Test Item Value Reference Range Interpretation Comments Bedside Anion Gap (test code = 64479-7) 19 8-18 [facility] HealthGFR estimate [id number] 16:03:00 Test Item Value Reference Range Interpretation Comments Estimat Glomerular Filtration Rate 163 90-142 (test code = 001681910) [facility] (mass/volume)2020-09-06 16:03:00 Test Item Value Reference Range Interpretation Comments Bedside Hemoglobin (test code = 13.6 12.0-15.2 98845-1) [facility] hematocrit (volume fraction)2020-09-06 16:03:00 Test Item Value Reference Range Interpretation Comments Bedside Hematocrit (test code = 40.0 35.0-45.0 17614-1) [facility] HealthVenous whole blood sodium measurement (moles/volume)2020-09-06 16:03:00 Test Item Value Reference Range Interpretation Comments Bedside Sodium (test code = 78321-9) 139 Venous whole blood potassium measurement (moles/volume)2020-09-06 16:03:00 Test Item Value Reference Range Interpretation Comments Bedside Potassium (test code = 14893-8) 3.6 Venous whole blood chloride measurement (moles/volume)2020-09-06 16:03:00 Test Item Value Reference Range Interpretation Comments Bedside Chloride (test code = 67817-5) 100 Venous whole blood total carbon dioxide measurement (moles/volume)2020-09-06 16:03:00 Test Item Value Reference Range Interpretation Comments Bedside Total CO2 (test code = 2027-1) 25.0 Venous whole blood urea nitrogen (BUN) measurement (mass/volume)2020-09-06 16:03:00 Test Item Value Reference Range Interpretation Comments Bedside Blood Urea Nitrogen (test code 9 = 62267-6) Blood creatinine measurement (mass/volume)2020-09-06 16:03:00 Test Item Value Reference Range Interpretation Comments Bedside Creatinine (test code = 0.5 53954-1) Venous whole blood glucose measurement (mass/volume)2020-09-06 16:03:00 Test Item Value Reference Range Interpretation Comments Bedside Glucose (test code = 05533-6) 82 Whole blood ionized calcium measurement (moles/volume)2020-09-06 16:03:00 Test Item Value Reference Range Interpretation Comments Bedside Whole Blood Ionized Calcium 1.22 (test code = 1994-3) Blood anion [id number] 16:03:00 Test Item Value Reference Range Interpretation Comments Bedside Anion Gap (test code = 08927-2) 19 GFR estimate [id number] 16:03:00 Test Item Value Reference Range Interpretation Comments Estimat Glomerular Filtration Rate 163 (test code = 153690537) Venous blood hemoglobin measurement (mass/volume)2020-09-06 16:03:00 Test Item Value Reference Range Interpretation Comments Bedside Hemoglobin (test code = 13.6 44351-1) Venous blood hematocrit (volume fraction)2020-09-06 16:03:00 Test Item Value Reference Range Interpretation Comments Bedside Hematocrit (test code = 40.0 32802-6) Venous whole blood sodium measurement (moles/volume)2020-09-06 16:03:00 Test Item Value Reference Range Interpretation Comments Bedside Sodium (test code = 96401-9) 139 Venous whole blood potassium measurement (moles/volume)2020-09-06 16:03:00 Test Item Value Reference Range Interpretation Comments Bedside Potassium (test code = 74452-5) 3.6 Venous whole blood chloride measurement (moles/volume)2020-09-06 16:03:00 Test Item Value Reference Range Interpretation Comments Bedside Chloride (test code = 91139-0) 100 Venous whole blood total carbon dioxide measurement (moles/volume)2020-09-06 16:03:00 Test Item Value Reference Range Interpretation Comments Bedside Total CO2 (test code = 2027-1) 25.0 Venous whole blood urea nitrogen (BUN) measurement (mass/volume)2020-09-06 16:03:00 Test Item Value Reference Range Interpretation Comments Bedside Blood Urea Nitrogen (test code 9 = 72042-0) Blood creatinine measurement (mass/volume)2020-09-06 16:03:00 Test Item Value Reference Range Interpretation Comments Bedside Creatinine (test code = 0.5 52461-4) Venous whole blood glucose measurement (mass/volume)2020-09-06 16:03:00 Test Item Value Reference Range Interpretation Comments Bedside Glucose (test code = 18782-9) 82 Whole blood ionized calcium measurement (moles/volume)2020-09-06 16:03:00 Test Item Value Reference Range Interpretation Comments Bedside Whole Blood Ionized Calcium 1.22 (test code = 1994-3) Blood anion [id number] 16:03:00 Test Item Value Reference Range Interpretation Comments Bedside Anion Gap (test code = 17220-9) 19 GFR estimate [id number] 16:03:00 Test Item Value Reference Range Interpretation Comments Estimat Glomerular Filtration Rate 163 (test code = 281595156) Venous blood hemoglobin measurement (mass/volume)2020-09-06 16:03:00 Test Item Value Reference Range Interpretation Comments Bedside Hemoglobin (test code = 13.6 95410-1) Venous blood hematocrit (volume fraction)2020-09-06 16:03:00 Test Item Value Reference Range Interpretation Comments Bedside Hematocrit (test code = 40.0 28309-0) Serum or plasma beta choriogonadotropin measurement (units/volume)2020-09-06 16:00:00 Test Item Value Reference Range Interpretation Comments Human Chorionic Gonadotropin, Quant 54781.9 See Comment (test code = 85402-1) [facility]um or plasma beta choriogonadotropin measurement (units/volume)2020-09-06 16:00:00 Test Item Value Reference Range Interpretation Comments Human Chorionic Gonadotropin, Quant 93094.9 See Comment (test code = 15734-1) [facility]um or plasma beta choriogonadotropin measurement (units/volume)2020-09-06 16:00:00 Test Item Value Reference Range Interpretation Comments Human Chorionic Gonadotropin, Quant 60118.9 (test code = 03864-6) Serum or plasma beta choriogonadotropin measurement (units/volume)2020-09-06 16:00:00 Test Item Value Reference Range Interpretation Comments Human Chorionic Gonadotropin, Quant 01195.9 (test code = 71792-2) Microscopic examination of [id number] 15:50:00 Test Item Value Reference Range Interpretation Comments Microscopic Urinalysis (T) (test code = ----- 96945-2) [facility] comment [id number] 15:50:00 Test Item Value Reference Range Interpretation Comments Urine Culture Indicated (test code To follow = 8264-4) [facility] HealthUrinalysis specimen collection [id number] 15:50:00 Test Item Value Reference Range Interpretation Comments Urine Source (test code = 49349-5) URINE [facility] HealthUrine color [id number] 15:50:00 Test Item Value Reference Range Interpretation Comments Urine Color (test code = 5778-6) Yellow Yel-Melissa * [facility] HealthUrine clarity [id number] 15:50:00 Test Item Value Reference Range Interpretation Comments Urine Appearance (test code = 66201-0) Turbid Clear * [facility]rine pH measurement by automated test [id number] 15:50:00 Test Item Value Reference Range Interpretation Comments Urine pH (test code = 35051-7) 5.0 5.0-8.0 [facility] gravity of Urine by Automated test [id number] 15:50:00 Test Item Value Reference Range Interpretation Comments Urine Specific [place] (test code = 1.025 1.005-1.030 28093-4) [facility]rine protein measurement by automated test strip (mass/volume) 2020-09-06 15:50:00 Test Item Value Reference Range Interpretation Comments Urine Protein (test code = 29617-8) Negative Negative * [facility]rine glucose measurement by automated test strip (mass/volume) 2020-09-06 15:50:00 Test Item Value Reference Range Interpretation Comments Urine Glucose (UA) (test code = Negative Negative * 38120-7) [facility] HealthKetones [Mass/volume] in Urine by Automated test [id number] 15:50:00 Test Item Value Reference Range Interpretation Comments Urine Ketones (test code = 48850-6) 150 Negative * [facility] erythrocytes count by automated test strip (number/volume) 2020-09-06 15:50:00 Test Item Value Reference Range Interpretation Comments Urine Occult Blood (test code = 25 Negative * 95293-7) [facility] nitrite detection by automated test [id number] 15:50:00 Test Item Value Reference Range Interpretation Comments Urine Nitrite (test code = 49910-4) Negative Negative [facility] total bilirubin measurement by automated test strip (mass/volume)2020-09-06 15:50:00 Test Item Value Reference Range Interpretation Comments Urine Bilirubin (test code = Negative Negative 37905-4) [facility] urobilinogen measurement by automated test strip (mass/volume)2020-09-06 15:50:00 Test Item Value Reference Range Interpretation Comments Urine Urobilinogen (test code = Negative 0.0-1.0 11875-8) [facility] leukocytes count by automated test strip (number/volume) 2020-09-06 15:50:00 Test Item Value Reference Range Interpretation Comments Urine Leukocyte Esterase (test code = 500 Negative 10612-5) [facility]scopic examination of [id number] 15:50:00 Test Item Value Reference Range Interpretation Comments Microscopic Urinalysis (T) (test code = ----- 16539-9) [facility] sediment erythrocyte count by microscopy (number/high power field)2020-09-06 15:50:00 Test Item Value Reference Range Interpretation Comments Urine RBC (test code = 75352-8) 0-2 0-2 [facility] sediment leukocyte count by microscopy (number/high power field)2020-09-06 15:50:00 Test Item Value Reference Range Interpretation Comments Urine WBC (test code = 5821-4) 0-5 0-5 [facility] sediment epithelial cell count by microscopy (number/high power field)2020-09-06 15:50:00 Test Item Value Reference Range Interpretation Comments Urine Epithelial Cells (test code = Many Few 5787-7) [facility] sediment crystal count by microscopy (number/high power field)2020-09-06 15:50:00 Test Item Value Reference Range Interpretation Comments Urine Crystals (test code = None Seen None * 18164-9) [facility] sediment bacteria count by microscopy (number/high power field)2020-09-06 15:50:00 Test Item Value Reference Range Interpretation Comments Urine Bacteria (test code = 5769-5) Frequent None [facility] sediment casts count by microscopy (number/low power field) 2020-09-06 15:50:00 Test Item Value Reference Range Interpretation Comments Urine Casts (test code = 9842-6) None Seen None * [facility] HealthYeast detection in urine sediment by light [id number] 15:50:00 Test Item Value Reference Range Interpretation Comments Urine Yeast (test code = 97769-6) None Seen None [facility] comment 15:50:00 Test Item Value Reference Range Interpretation Comments Urinalysis Comment (test * See_Comment [A utomated message] The code = 8262-8) system which generated this result tra nsmitted reference range : *. The reference range was not used to interpr et this result as normal/abnormal . [facility] comment 15:50:00 Test Item Value Reference Range Interpretation Comments Urine Culture Indicated (test code To follow = 8264-4) [facility] HealthKetones [Mass/volume] in Urine by Automated test [id number] 15:50:00 Test Item Value Reference Range Interpretation Comments Urine Ketones (test code = 06702-0) 150 Urine erythrocytes count by automated test strip (number/volume)2020-09-06 15:50:00 Test Item Value Reference Range Interpretation Comments Urine Occult Blood (test code = 25 52293-2) Urine nitrite detection by automated test [id number] 15:50:00 Test Item Value Reference Range Interpretation Comments Urine Nitrite (test code = 91902-3) Negative Urine total bilirubin measurement by automated test strip (mass/volume) 2020-09-06 15:50:00 Test Item Value Reference Range Interpretation Comments Urine Bilirubin (test code = Negative 90232-3) Urine urobilinogen measurement by automated test strip (mass/volume)2020-09-06 15:50:00 Test Item Value Reference Range Interpretation Comments Urine Urobilinogen (test code = Negative 58103-8) Urine leukocytes count by automated test strip (number/volume)2020-09-06 15:50:00 Test Item Value Reference Range Interpretation Comments Urine Leukocyte Esterase (test code = 500 12592-4) Microscopic examination of [id number] 15:50:00 Test Item Value Reference Range Interpretation Comments Microscopic Urinalysis (T) (test code = ----- 81935-4) Urine sediment erythrocyte count by microscopy (number/high power field) 2020-09-06 15:50:00 Test Item Value Reference Range Interpretation Comments Urine RBC (test code = 82651-1) 0-2 Urine sediment leukocyte count by microscopy (number/high power field)2020-09-06 15:50:00 Test Item Value Reference Range Interpretation Comments Urine WBC (test code = 5821-4) 0-5 Urine sediment epithelial cell count by microscopy (number/high power field) 2020-09-06 15:50:00 Test Item Value Reference Range Interpretation Comments Urine Epithelial Cells (test code = Many 5787-7) Urine sediment crystal count by microscopy (number/high power field)2020-09-06 15:50:00 Test Item Value Reference Range Interpretation Comments Urine Crystals (test code = None Seen 97733-7) Urine sediment bacteria count by microscopy (number/high power field)2020-09-06 15:50:00 Test Item Value Reference Range Interpretation Comments Urine Bacteria (test code = 5769-5) Frequent Urine sediment casts count by microscopy (number/low power field)2020-09-06 15:50:00 Test Item Value Reference Range Interpretation Comments Urine Casts (test code = 9842-6) None Seen Yeast detection in urine sediment by light [id number] 15:50:00 Test Item Value Reference Range Interpretation Comments Urine Yeast (test code = 91223-5) None Seen Service comment 15:50:00 Test Item Value Reference Range Interpretation Comments Urinalysis Comment (test code = 8262-8) * Service comment 15:50:00 Test Item Value Reference Range Interpretation Comments Urine Culture Indicated (test code To follow = 8264-4) Microscopic examination of [id number] 15:50:00 Test Item Value Reference Range Interpretation Comments Microscopic Urinalysis (T) (test code = ----- 88149-7) Urinalysis specimen collection [id number] 15:50:00 Test Item Value Reference Range Interpretation Comments Urine Source (test code = 47048-1) URINE Service comment 15:50:00 Test Item Value Reference Range Interpretation Comments Urine Culture Indicated (test code To follow = 8264-4) Urine color [id number] 15:50:00 Test Item Value Reference Range Interpretation Comments Urine Color (test code = 5778-6) Yellow Urine clarity [id number] 15:50:00 Test Item Value Reference Range Interpretation Comments Urine Appearance (test code = 68076-3) Turbid Urine pH measurement by automated test [id number] 15:50:00 Test Item Value Reference Range Interpretation Comments Urine pH (test code = 64036-6) 5.0 Specific gravity of Urine by Automated test [id number] 15:50:00 Test Item Value Reference Range Interpretation Comments Urine Specific [place] (test code = 1.025 84324-2) Urine protein measurement by automated test strip (mass/volume)2020-09-06 15:50:00 Test Item Value Reference Range Interpretation Comments Urine Protein (test code = 46810-8) Negative Urine glucose measurement by automated test strip (mass/volume)2020-09-06 15:50:00 Test Item Value Reference Range Interpretation Comments Urine Glucose (UA) (test code = Negative 65573-8) ISTAT CHEM [id number] 17:15:00 Test Item Value Reference Range Interpretation Comments ISTATNA (test code = 139 MMOL/L 137-145 ISTATNA) ISTATK (test code = 3.6 MMOL/L 3.6-5.0 ISTATK) ISTATCL (test code = 104 MMOL/L 98-107 ISTATCL) ISTIONCA (test code = 1.29 MMOL/L 1.12-1.32 ISTIONCA) ISTCO2 (test code = 23 MMOL/L 22-30 ISTCO2) ISTATGLU (test code = 69 MG/DL 65-110 ISTATGLU) ISTATBUN (test code = 7.0 MG/DL 7.0-20.0 ISTATBUN) ISTCREA (test code = 0.4 MG/DL 0.7-1.5 L ISTCREA) ISTATHCT (test code = 35 %PCV 37.0-52.0 L ISTATHCT) ISTATHGB (test code = 11.9 G/DL 12.0-18.0 L Notifi ed Nurse/MD of ISTATHGB) results outside of Reference Range s ISTANGAP (test code = 16 MMOL/L Notifi ed Nurse/MD of ISTANGAP) results outside of Reference Range s ER SCREEN FOR HIV 15:55:00 Test Item Value Reference Range Interpretation Comments HIV 1/2 AB (test NEGATIVE NEGATIVE This test i s used for code = SCRN HIV) SCREENING p urposes only. All reactive re sults are prelimenary and confirmation re sults will follow. [id number] 15:50:00 Test Item Value Reference Range Interpretation Comments BLOOD TYPE (test A Rh Positive Comment for code = TYPE) Female s Rhogam may be indicated for p atient depending baby' s Rh status. [id number] 15:06:00 Test Item Value Reference Range Interpretation Comments GLUCOSE (test code = URGLU) NEGATIVE MG/DL NEG-100 BILIRUBN (test code = URBILI) NEGATIVE NEGATIVE KETONE (test code = URKET) TRACE MG/DL NEGATIVE BLOOD (test code = URBLD) NEGATIVE UR PH (test code = URPH) 5.5 5.0-7.5 PROTEIN (test code = URPRO) NEGATIVE MG/DL NEGATIVE NITRITES (test code = URNIT) NEGATIVE NEGATIVE UROBILINGEN (test code = 0.2 EU/DL 0.2-1.0 URURO) LEUKOCYT (test code = URLEU) SMALL NEGATIVE UA COLOR (test code = UA YELLOW YELLOW COLOR) CLARITY (test code = CLARITY) CLOUDY CLEAR SP GRAV (test code = URSPGRAV) 1.027 1.000-1.025 H UAMICRO (test code = UAMICRO) YES WBC (test code = URWBC) 7 /HPF 0-5 H RBC (test code = URRBC) 1 /HPF 0-2 CASTS (test code = CAST) 22 /LPF 0-3 H UR EPI (test code = EPI) 143 /LPF BACTERIA (test code = TRACE NONE BACTERIA) US OB <14 [id number] 14:33:00 [facility] 1995 [facility] [place], [place] [address]WMCYQAFEUB IMAGING REPORTPatient Name: SAM OLVERADate of Service: [id number]: 24 Sex: F Order #: [id number] Room: ERSDOB: 1995 X-Ray Number: [id number] Record Number: [id number] Hospital Number: [id number] Physician: VINCENT GUILLENOrdering Physician: ASHLEY GUILLENLimited OB ultrasound.History: Pelvic pain for one dayTechnique: Transabdominal limited OB ultrasound images were obtained andreviewed.Findings:The uterus measures 9.2 x 5.7 x 8.1 cm. The cervix measures 2.6 cm. Thereis an intrauterine with a crown-rump length of 1.9 cm consistentwith 8 weeks, 4 days. The amniotic fluid index is within normal limits.There is cardiac activity with a heart rate of 169 bpm. Fetalmovement is present. The yolk sac measures 0.14 cm. The amnion is present.The estimated date deliveryis 02/09/2021.Right ovary: The right ovary measures 3.9 x 1.6 x 2.8 cm. There is normalcolor Dopplerflow in the right ovary. There appears to be a corpus lutealcyst in the right ovary.Left ovary: The left measures 3.2 x 1.8 x 2.1 cm. There is normal colorDoppler flow in the left ovary.Impression:There is an intrauterine with a crown-rump length indicative of 8weeks, 4 days. heart tones are present.Electronically Signed By: Carlos Sanchez M.D., 07/04/2020 2:30 PMLegally authenticated by THEO GEGIER JR 2020-07-04 14:30:52CB 2020-07-04 14:25:00 Test Item Value Reference Range Interpretation Comments WBC (test code = 6.3 K/UL 3.5-10.9 WBC) RBC (test code = 4.33 M/UL 4.0-5.0 RBC) HGB (test code = 11.5 G/DL 11.5-15.5 HGB) HCT (test code = 36.1 % 34-46 HCT) MCV (test code = 83.4 FL 80-98 MCV) MCH (test code = 26.6 PG 28-32 L MCH) MCHC (test code = 31.9 G/DL 32.5-36.5 L MCHC) RDW (test code = 13.2 % 11.5-14.5 RDW) PLT (test code = 353 K/UL 150-450 PLT) MPV (test code = 10.8 FL 7.4-10.4 H MPV) MANDIFF (test code = NO MANDIFF) SCAN (test code = NO SCAN) NEUT% (test code = 53.4 % 40-75 NEUT%) LYMPH% (test code = 38.9 % 24-44 LYMPH%) MONO% (test code = 7.0 % 0-13 MONO%) EOS% (test code = 0.2 % 0-4 EOS%) BASO % (test code = 0.3 % 0-2 BASO%) IG (test code = IG) 0 % 0-1 IG% (test code = 0.2 % 0-1 IG% = Metam yelocytes, IG%) Myelocytes, and Promyelocytes. (Immature neutr ophils not including " bands".) > 3% IG indic ates risk of sepsis NRBC% (test code = 0 /100 WBC NRBC%) ABS NEUT (test code 3.3 K/UL 1.2-7.2 = NEUT) Notes Date/Time Note Provider Source 2021-03-30 14:15:16-00:00 [facility] JOE FRANKLIN [address] [address] DIAGNOSTIC IMAGING REPORT Patient Name: SAM OLVERA Date of Service: 03-30-2021 Age: 25 Sex: F Order #: [id number] Room: [facility] : 1995 X-Ray Number: [id number] Hospital Number : [id number] Admitting Physician: BELINDA DIALLO - Ordering Physician: KIRILL HU-KATHY CHEST 1 VIEW PORTABLE 03/30/2021 1:26 PM: History: Cough with fever . Covid 19 infection. Comparison: None. Technique: 1 view chest Findings: The cardiomediastinal silhouette is normal. The lungs are clear without infiltrate, effusion, or pneumothorax. The bones are intact. Impression: No acute cardiopulmonary process. Electronically Signed By: Joe Collins M.D., 03/30/2021 2:15 PM Legally authenticated by JASON DIAZ 2021-03 14:15:16 2020-07-04 14:30:52-00:00 [facility] EMANUELBERNICEMARTYCARLOS [address] [address] DIAGNOSTIC IMAGING REPORT Patient Name: SAM OLVERA Date of Service: 07-04-2020 Age: 24 Sex: F Order #: [id number] Room: [facility] : 1995 X-Ray Number: [id number] Hospital Number : [id number] Admitting Physician: VINCENT GUILLEN Ordering Physician: ASHLEY GUILLEN Limited OB ultrasound. History: Pelvic pain for one day Technique: Transabdominal limited OB ultrasound images were obtained and reviewed. Findings: The uterus measures 9.2 x 5.7 x 8.1 cm. The cerv ix measures 2.6 cm. There is an intrauterine with a crown-rump l ength of 1.9 cm consistent with 8 weeks, 4 days. The amniotic fluid index i s within normal limits. There is cardiac activity with a heart rat e of 169 bpm. movement is present. The yolk sac measures 0.14 cm. The amnion is present. The estimated date delivery is 02/09/2021. Right ovary: The right ovary measures 3.9 x 1.6 x 2.8 cm. There is normal color Doppler flow in the right ovary. There dariana ears to be a corpus luteal cyst in the right ovary. Left ovary: The left measures 3.2 x 1.8 x 2.1 cm . There is normal color Doppler flow in the left ovary. Impression: There is an intrauterine with a crown- rump length indicative of 8 weeks, 4 days. heart tones are present. Electronically Signed By: Carlos Sanchez M.D., 07/04/2020 2:30 PM Legally authenticated by THEO GEIGER JR 2020-07-04 14:30:52
--- NOTE | 2022-12-02 01:24 | ER ---
Nurse's Notes [facility] Name: Edin Hurtado Age: 27 yrs Sex: Female : 1995 Arrival Date: 12/02/2022 Time: 00:03 Bed 12 Private MD: Diagnosis: Localized enlarged lymph nodes-submental Presentation: 12/02 00:20 Chief complaint: Patient states: i think i have a sinus infection. i took a covid test lg3 on Thursday and it was negative. i also have a lump under my chin that's swollen and painful. Coronavirus screen: Client denies travel out of the [place] in the last 14 days. Ebola Screen: No symptoms or risks identified at this time. Initial Sepsis Screen: Does the patient meet any 2 criteria? No. Patient's initial sepsis screen is negative. Does the patient have a suspected source of infection? No. Patient's initial sepsis screen is negative. Risk Assessment: Do you want to hurt yourself or someone else? Patient reports no desire to harm self or others. Onset of symptoms was November 29, 2022. 00:20 Method Of Arrival: Ambulatory lg3 00:20 Acuity: DIXON 4 lg3 Triage Assessment: 00:25 General: Appears in no apparent distress. comfortable, Behavior is calm, cooperative. lg3 Pain: Complains of pain in submental area Pain currently is 4 out of 10 on a pain scale. Pain began 2-3 days ago. Also complains of no other associated symptoms. EENT: No deficits noted. No signs and/or symptoms were reported regarding the EENT system. Neuro: No deficits noted. Zaman Agitation-Sedation Scale (RASS): 0 - Alert and Calm Level of Consciousness is awake, alert, obeys commands, Oriented to person, place, time, situation. Cardiovascular: No deficits noted. Denies chest pain, shortness of breath, Capillary refill < 3 seconds Clubbing of nail beds is absent JVD is absent Patient's skin is warm and dry. Respiratory: No deficits noted. Airway is patent Respiratory effort is even, unlabored, Respiratory pattern is regular, symmetrical. GI: No deficits noted. No signs and/or symptoms were reported involving the gastrointestinal system. : No deficits noted. No signs and/or symptoms were reported regarding the genitourinary system. Derm: No deficits noted. Skin is intact, is healthy with good turgor, Skin is dry, Skin is normal, Skin temperature is warm. Musculoskeletal: Circulation, motion, and sensation intact. Range of motion: intact in all extremities, Swelling present in submental area. [employer]: 00:25 LMP 11/19/2022 lg3 Historical: - Allergies: 00:25 No Known Allergies; lg3 - Home Meds: 00:25 None [Active]; lg3 - PMHx: 00:25 None; lg3 - PSHx: 00:25 section; lg3 - Immunization history:: Adult Immunizations up to date, Client reports receiving the 2nd dose of the Covid vaccine. - Social history:: Smoking status: Patient reports the use of cigarette tobacco products, cigars, Patient/guardian denies using alcohol. Screenin:27 [facility] ED Fall Risk Assessment (Adult) History of falling in the last 3 months, lg3 including since admission No falls in past 3 months (0 pts). Abuse screen: Denies threats or abuse. Denies injuries from another. Nutritional screening: No deficits noted. Tuberculosis screening: No symptoms or risk factors identified. Assessment: 00:30 General: see triage assessment . lg3 01:27 Reassessment: Patient appears in no apparent distress at this time. No changes from lg3 previously documented assessment. Patient and/or family updated on plan of care and expected duration. Pain level reassessed. Patient is alert, oriented x 3, equal unlabored respirations, skin warm/dry/pink. 01:28 Pain: Complains of pain in submental area. lg3 Vital Signs: 00:20 BP 125 / 80; Pulse 60; Resp 17 S; Temp 98.8(O); Pulse Ox 100% on R/A; Weight 56.7 kg lg3 (R); Height 5 ft. 4 in. (R); 01:28 BP 122 / 84; Pulse 64; Resp 17 S; Pulse Ox 100% on R/A; lg3 00:20 Body Mass Index 21.46 (56.70 kg, 162.56 cm) lg3 ED Course: 00:05 Patient arrived in ED. mr 00:22 Triage completed. lg3 00:25 Arm band placed on right wrist. lg3 00:30 Patient has correct armband on for positive identification. Placed in gown. Bed in low lg3 position. Call light in reach. Side rails up X 1. Door closed. Noise minimized. Warm blanket given. 00:30 Patient maintains SpO2 saturation greater than 95% on room air. lg3 00:32 Matthew Allen MD is Attending Physician. anyi 00:32 Matthew Abdalla PA is PHCP. cp 01:23 Mily Washington MD is Referral Physician. cp 01:28 No provider procedures requiring assistance completed. Patient did not have IV access lg3 during this emergency room visit. Administered Medications: 01:24 Drug: Amoxicillin-Clavulanate PO Chewable Tablet 800 mg Route: PO; lg3 01:28 Follow up: Response: No adverse reaction lg3 01:24 Drug: Ibuprofen PO 600 mg Route: PO; lg3 01:28 Follow up: Response: No adverse reaction lg3 Medication: 01:28 VIS not applicable for this client. lg3 Outcome: 01:23 Discharge ordered by . cp 01:35 Discharged to home ambulatory. kl 01:35 Condition: stable 01:35 Discharge instructions given to patient, Instructed on discharge instructions, follow up and referral plans. medication usage, Demonstrated understanding of instructions, follow-up care, medications, Prescriptions given X 2. 01:35 Patient left the ED. kl Signatures: Aisha Muse, RN RN Matthew Hernandes MD MD cha Rivera, Mary mr Matthew Abdalla PA PA cp Gibson, Lacie, SANDRA RN lg3
--- NOTE | 2022-12-02 01:24 | EDPHYS ---
Physician Documentation [facility] Name: Edin Hurtado Age: 27 yrs Sex: Female : 1995 Arrival Date: 12/02/2022 Time: 00:03 Bed 12 Private MD: ED Physician Matthew Allen HPI: 12/02 01:00 This 27 yrs old Black Female presents to ER via Ambulatory with complaints of Sinus cp Pain, Jaw, throat pain. 01:00 The patient or guardian reports pain and swelling in submental area. Onset: The cp symptoms/episode began/occurred this morning. Associated signs and symptoms: Pertinent positives: congestion for past several days, Pertinent negatives: diarrhea, ear ache, fever, sore throat, vomiting. 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 - Social history:: Smoking status: Patient reports the use of cigarette tobacco products, cigars, Patient/guardian denies using alcohol. ROS: 01:05 Constitutional: Negative for body aches, chills, fever, poor PO intake. cp 01:05 Eyes: Negative for injury, pain, redness, and discharge. cp 01:05 ENT: Positive for sinus congestion, Negative for drainage from ear(s), ear pain, sore throat, difficulty swallowing, difficulty handling secretions. 01:05 Cardiovascular: Negative for chest pain, palpitations. 01:05 Respiratory: Negative for cough, shortness of breath, wheezing. 01:05 Abdomen/GI: Negative for abdominal pain, nausea, vomiting, and diarrhea. 01:05 : Negative for urinary symptoms. 01:05 Skin: Negative for cellulitis, rash. 01:05 Neuro: Negative for altered mental status, dizziness, headache, weakness. 01:05 All other systems are negative. Exam: 01:10 Constitutional: The patient appears in no acute distress, alert, awake, non-toxic, well cp developed, well nourished. 01:10 Head/face: Noted is swelling, that is mild, of the submental area, of the tender cp enlarged node. 01:10 Eyes: Periorbital structures: appear normal, Conjunctiva: normal, no exudate, no injection, Sclera: no appreciated abnormality, Lids and lashes: appear normal, bilaterally. 01:10 ENT: External ear(s): are unremarkable, Ear canal(s): are normal, clear, TM's: dullness, bilaterally, Mouth: is normal, Posterior pharynx: is normal, airway is patent, no erythema, no exudate, Dental exam: normal. 01:10 Neck: ROM/movement: is normal, is supple, without pain, no range of motions limitations, no meningismus, Lymph nodes: no appreciated lymphadenopathy. 01:10 Chest/axilla: Inspection: normal. 01:10 Cardiovascular: Rate: normal, Rhythm: regular. 01:10 Respiratory: the patient does not display signs of respiratory distress, Respirations: normal, no use of accessory muscles, no retractions, labored breathing, is not present, Breath sounds: are clear throughout, no decreased breath sounds, no stridor, no wheezing. 01:10 Abdomen/GI: Exam negative for discomfort, distension, guarding, Inspection: abdomen appears normal. 01:10 Skin: cellulitis, is not appreciated. Vital Signs: 00:20 BP 125 / 80; Pulse 60; Resp 17 S; Temp 98.8(O); Pulse Ox 100% on R/A; Weight 56.7 kg lg3 (R); Height 5 ft. 4 in. (R); 01:28 BP 122 / 84; Pulse 64; Resp 17 S; Pulse Ox 100% on R/A; lg3 00:20 Body Mass Index 21.46 (56.70 kg, 162.56 cm) lg3 MDM: 04 01:22 Data reviewed: vital signs, nurses notes. 01:22 I considered the following discharge prescriptions or medication management in the emergency department Medications were administered in the Emergency Department. See MAR. Test considered but Not performed: Labs: cbc, bmp. CT: facial bones. Counseling: I had a detailed discussion with the patient and/or guardian regarding the historical points, exam findings, and any diagnostic results supporting the discharge/admit diagnosis, the need for outpatient follow up, an ENT specialist, to return to the emergency department if symptoms worsen or persist or if there are any questions or concerns that arise at home. 12/02 00:32 [facility] Differential Diagnosis: Bronchitis Influenza Sinusitis Other dental abscess, enlarged cp node, abscess. Administered Medications: 01:24 Drug: Amoxicillin-Clavulanate PO Chewable Tablet 800 mg Route: PO; lg3 01:28 Follow up: Response: No adverse reaction lg3 01:24 Drug: Ibuprofen PO 600 mg Route: PO; lg3 01:28 Follow up: Response: No adverse reaction lg3 Disposition Summary: 12/02/22 01:23 Discharge Ordered Location: Home cp Problem: new cp Symptoms: have improved cp Condition: Stable cp Diagnosis - Localized enlarged lymph nodes - submental cp Followup: cp - With: Mily Washington MD - When: 2 - 3 days - Reason: Worsening of condition Discharge Instructions: - Discharge Summary Sheet cp - Lymphadenopathy cp Forms: - Work release form kl - Medication Reconciliation Form cp - Thank You Letter cp - Antibiotic Education cp - Prescription Opioid Use cp - Patient Portal Instructions cp - Leadership Thank You Letter cp Prescriptions: - Amoxicillin 875 mg Oral Tablet - take 1 tablet by ORAL route every 12 hours for 10 days; 20 tablet; Refills: 0, cp Product Selection Permitted - Ibuprofen 600 mg Oral Tablet - take 1 tablet by ORAL route every 8 hours As needed take with food; 30 tablet; cp Refills: 0, Product Selection Permitted Signatures: Matthew Allen MD MD cha Page, Corey PA PA Tona Colon, RN RN lg3
[2022-12-02] MEDS ORDERED: IBUPROFEN 400 MG TAB ONE (01:35)
[2022-12-02] MEDS ORDERED: IBUPROFEN 200 MG TAB PO ONE (01:35)
[2022-12-02] MEDS ORDERED: AMOX TR/K CLAV 400MG CHEW TAB PO ONE (01:35)
[2022-12-02 01:41] VITALS: TEMP 98.8; O2SAT 100
[2022-12-02 01:42] VITALS: BP 122/84
== END 2022-12-02 01:35 | disposition home or self-care (01) ==
LOC: ER 00:03
DX: R59.0 Localized enlarged lymph nodes (principal)
CPT/HCPCS: 99284

== ENCOUNTER 2023-01-19 14:35 | Emergency (ER) | payer BC, SELFPAY ==
--- OUTSIDE RECORDS SUMMARY | 2023-01-19 14:41 | XMS REPORT | Continuity of Care Document ---
:1995 Author Organization [facility] t Address [address] [place] [address] Care Team Providers Name Role Phone PCP, NO Primary Care Physician Unavailable JENNIFER NEVAREZ Attending Clinician Unavailable Steven Narayanan MD Attending Clinician POP ANDERSON Attending Clinician Unavailable STEVEN NARAYANAN Attending Clinician Unavailable Doctor Unassigned, [place] Attending Clinician Unavailable Lachelle Mauricio RN Attending Clinician Unavailable Jennifer Nevarez PA-C Attending Clinician OMKAR GÓMEZ Attending Clinician Unavailable SHAYE KHAN Attending Clinician Unavailable BELINDA DIALLO - Attending Clinician Unavailable DESTINY ERIC Attending Clinician Unavailable ROSALES PALM Attending Clinician Unavailable Destiny Zabala Attending Clinician Cindy TELEPATHIST, Brissa R Attending Clinician BRISSA WHITE Attending Clinician Unavailable KAT CASEY Attending Clinician Unavailable Visit, [facility] Nurse Attending Clinician Unavailable Renzo Valerio RN, Angy Attending Clinician Unavailable MARTIN MAHAJAN Attending Clinician Unavailable Lenard Avila MD Attending Clinician Ronnie Davis MD Attending Clinician Avtar FLORES, Noemi Phillip Attending Clinician Unavailable Colleen Becerra MD Attending Clinician Martin Mahajan MD Attending Clinician MARNI BELCHER Attending Clinician Unavailable Shanice FLORES, Darcy Hernandez Attending Clinician Unavailable BALBINA INMAN Attending Clinician Unavailable NOREEN FLOREZ Attending Clinician Unavailable 2, [facility] Ultrasound Attending Clinician Unavailable Kamille HERNANDEZ, David Jon Attending Clinician MORELIA CARVALHO Attending Clinician Unavailable Leon Ramos RN Attending Clinician Unavailable [facility] Attending Clinician Unavailable Noreen Florez MD Attending [...] Number Effective Date Expiration Date S hyacinth [facility] [id number] 2018 00:00:00 [facility] LISA [id number] 2020 00:00:00 Problems Condition Condition Condition Status [...] y of y of y of 00:00: [place] cervix cervix 00 Medical with ASCUS with ASCUS Br anch favoring favoring benign benign Missed Missed Disease Active Univers period period 09-23 ity of 00:00: [place] 00 Medical Branch Family Family Disease Active 2020-03 Univers planning planning 2 [place] Bipolar Bipolar Disease Active 2020-03 Univers affective affective 05-12 ity of disorder, disorder, 00:00: Maxi phillip currently currently 00 Medi malik depressed, depressed, Br anch mild mild Anemia of Anemia of Disease Active 2020-03 Uni vers mother in mother in 2-13 [place] , [place] dical condition condition Bran ch Problem Problem [facility] Health Allergies, Adverse Reactions, Alerts Allergy Allergy Status Severity Reaction(s) Onset Inactive Treating Comm ents Source Name Type Date Date Clinician No known Miscella Active U Not [facility] Specified 03-30 [facility] All[facility]ie Allergy 12:05: l s 23 ([facility]) No known Miscella Active U Not Bapt[facility] t drug neous Specified 03-30 [facility]ospita Allergie Allergy 12:05: l s 23 ([facility]) No known Miscella Active U Not Baptis t drug neous Specified 03-30 Hospita Allergie Allergy 12:05: l s 23 ([facility]) No known Miscella Active U Not Baptis t drug neous Specified 03-30 Hospita Allergie Allergy 12:05: l s 23 ([facility]) No Known NA Active [facility] Allergie 07-04 Hospita s 14:20: l 16 ([facility]) No Known NA Active [facility] Allergie 07-04 Hospita s 13:50: l 13 ([facility]) No Known NA Active [facility] Allergie 07-04 Hospita s 13:38: l 34 ([facility]) NO KNOWN Drug Active Univers ALLERGIE Class ity of S [facility] Social History Social Habit Start Date Stop Date Quantity Comments Source History of tobacco [facility] Health use ASSERTION [facility] Sexual orientation Univer sity [facility] Exposure to 2021-11-18 2021-11-28 Not sure [facility]-CoV-2 (event) 00:00:00 10:27:00 [facility] History of Social 2021-02-14 2021-02-14 Univers ity of function 00:00:00 00:00:00 [facility] Tobacco use and 2020-07-12 2020-07-12 Smokeless Universit y of exposure 00:00:00 00:00:00 tobacco non-user [facility] Alcohol intake 2020-07-12 2020-07-12 Ex-drinker [facility] 00:00:00 00:00:00 (finding) [facility] time of call 2020-05-30 2020-05-30 05/30/2020 11:28 [facility] 11:28:40 11:28:40 AM Health Sex Ass[birth year] At [birth year] Female [facility] Health 00:00:00 00:00:00 Smoking Status Start Date Stop Date Source Unknown if ever smoked [facility] Ex-smoker (finding) 2021-09-16 18:24:00 2021-09-16 18:24:00 [facility] Never smoked tobacco [facility]3] alth (finding) Medications Ordered Filled Start Stop Current Ordering Indication Dosage Frequency Signature Comments Components Source Medication Medication Date Date Medication? Clinician (SIG) Name Name valACYclovi 2021-03 Yes [id number] 500mg Take 1 Univers r 500 mg 04-21 tablet by ity of tablet 00:00: mouth in [place] 00 the Medical morning Branch and 1 tablet in the evening. Take 1 tablet BID for 1 week followed by 1 tablet once daily until delivery metroNIDAZO 2021-03 500mg Take 1 Un kenzie LE (FLAGYL) 04-21 tablet by it y of 500 mg 00:00: 05:59 mouth [place] tablet 00 :00 every 12 Medical (twelve) Branch hours for 7 days. SERTraline 2020-03 Yes 50mg Take 50 mg U nivers 50 mg 2-13 by mouth ity of tablet 14:35: daily. [address] lurasidone 2020-03 Yes 20mg Take 20 mg U nivers (LATUDA) 20 2-13 by mouth. ity of mg tablet 14:35: [address] SERTraline 2020-03 Yes 50mg Take 50 mg U nivers 50 mg 2-13 by mouth ity of tablet 14:35: daily. [address] lurasidone 2020-03 Yes 20mg Take 20 mg U nivers (LATUDA) 20 2-13 by mouth. ity of mg tablet 14:35: [address] SERTraline 2020-03 Yes 50mg Take 50 mg U nivers 50 mg 2-13 by mouth ity of tablet 14:35: daily. [address] lurasidone 2020-03 Yes 20mg Take 20 mg U nivers (LATUDA) 20 2-13 by mouth. ity of mg tablet 14:35: [address] SERTraline 2020-03 Yes 50mg Take 50 mg U nivers 50 mg 2-13 by mouth ity of tablet 14:35: daily. [address] lurasidone 2020-03 Yes 20mg Take 20 mg U nivers (LATUDA) 20 2-13 by mouth. ity of mg tablet 14:35: [address] SERTraline 2020-03 Yes 50mg Take 50 mg U nivers 50 mg 2-13 by mouth ity of tablet 14:35: daily. [address] lurasidone 2020-03 Yes 20mg Take 20 mg U nivers (LATUDA) 20 2-13 by mouth. ity of mg tablet 14:35: [address] SERTraline 2020-03 Yes 50mg Take 50 mg U nivers 50 mg 2-13 by mouth ity of tablet 14:35: daily. [address] lurasidone 2020-03 Yes 20mg Take 20 mg U nivers (LATUDA) 20 2-13 by mouth. ity of mg tablet 14:35: [address] ondansetron 2020-03 Take by Un kenzie HCl (ZOFRAN 0-18 10-18 mouth. ity o f ORAL) 05:34: 00:00 [place] 56 :00 Medical Branch ferrous 2020-03 Yes [id number] 325mg Take 1 Un kenzie sulfate 325 0-18 tablet by ity of mg (65 mg 00:00: mouth 2 [place] iron) 00 (two) Medical tablet times Branch daily. 2020-03 Yes [id number] 1{tbl} Take 1 Univers vitamin 0-18 tablet by ity of w/FA tablet 00:00: mouth [place] 00 daily. Medical Branch docusate 2020-03 Yes [id number] 240mg Take 1 U nivers calcium 240 [...] Indication s: acute pain ibuprofen 2020-03 Yes [id number] 600mg Take 1 Univers 600 mg 0-18 tablet by ity of tablet 00:00: mouth [place] 00 every 6 Medical (six) Branch hours as needed (Pain). Take with food or milk. ferrous 2020-03 Yes [id number] 325mg Take 1 Un kenzie sulfate 325 0-18 tablet by ity of mg (65 mg 00:00: mouth 2 [place] iron) 00 (two) Medical tablet times Branch daily. 2020-03 Yes [id number] 1{tbl} Take 1 Univers vitamin 0-18 tablet by ity of w/FA tablet 00:00: mouth [place] 00 daily. Medical Branch docusate 2020-03 Yes [id number] 240mg Take 1 U nivers calcium 240 [...] Indication s: acute pain ibuprofen 2020-03 Yes [id number] 600mg Take 1 Univers 600 mg 0-18 tablet by ity of tablet 00:00: mouth [place] 00 every 6 Medical (six) Branch hours as needed (Pain). Take with food or milk. ferrous 2020-03 Yes [id number] 325mg Take 1 Un kenzie sulfate 325 0-18 tablet by ity of mg (65 mg 00:00: mouth 2 [place] iron) 00 (two) Medical tablet times Branch daily. 2020-03 Yes [id number] 1{tbl} Take 1 Univers vitamin 0-18 tablet by ity of w/FA tablet 00:00: mouth [place] 00 daily. Medical Branch docusate 2020-03 Yes [id number] 240mg Take 1 U nivers calcium 240 [...] Indication s: acute pain ibuprofen 2020-03 Yes [id number] 600mg Take 1 Univers 600 mg 0-18 tablet by ity of tablet 00:00: mouth [place] 00 every 6 Medical (six) Branch hours as needed (Pain). Take with food or milk. ferrous 2020-03 Yes [id number] 325mg Take 1 Un kenzie sulfate 325 0-18 tablet by ity of mg (65 mg 00:00: mouth 2 [place] iron) 00 (two) Medical tablet times Branch daily. 2020-03 Yes [id number] 1{tbl} Take 1 Univers vitamin 0-18 tablet by ity of w/FA tablet 00:00: mouth [place] 00 daily. Medical Branch docusate 2020-03 Yes [id number] 240mg Take 1 U nivers calcium 240 [...] Indication s: acute pain ibuprofen 2020-03 Yes [id number] 600mg Take 1 Univers 600 mg 0-18 tablet by ity of tablet 00:00: mouth [place] 00 every 6 Medical (six) Branch hours as needed (Pain). Take with food or milk. ferrous 2020-03 Yes [id number] 325mg Take 1 Un kenzie sulfate 325 0-18 tablet by ity of mg (65 mg 00:00: mouth 2 [place] iron) 00 (two) Medical tablet times Branch daily. 2020-03 Yes [id number] 1{tbl} Take 1 Univers vitamin 0-18 tablet by ity of w/FA tablet 00:00: mouth [place] 00 daily. Medical Branch docusate 2020-03 Yes [id number] 240mg Take 1 U nivers calcium 240 [...] Indication s: acute pain ibuprofen 2020-03 Yes [id number] 600mg Take 1 Univers 600 mg 0-18 tablet by ity of tablet 00:00: mouth [place] 00 every 6 Medical (six) Branch hours as needed (Pain). Take with food or milk. ferrous 2020-03 Yes [id number] 325mg Take 1 Un kenzie sulfate 325 0-18 tablet by ity of mg (65 mg 00:00: mouth 2 [place] iron) 00 (two) Medical tablet times Branch daily. 2020-03 Yes [id number] 1{tbl} Take 1 Univers vitamin 0-18 tablet by ity of w/FA tablet 00:00: mouth [place] 00 daily. Medical Branch docusate 2020-03 Yes [id number] 240mg Take 1 U nivers calcium 240 [...] Indication s: acute pain ibuprofen 2020-03 Yes [id number] 600mg Take 1 Univers 600 mg 0-18 tablet by ity of tablet 00:00: mouth [place] 00 every 6 Medical (six) Branch hours as needed (Pain). Take with food or milk. valACYclovi 2020-03 Yes [id number] 500mg Take 1 Univers r 500 mg 0-12 tablet by ity of tablet 00:00: mouth ([facility]) Medical times Branch daily. Take 1 tablet BID for 1 week followed by 1 tablet once daily until delivery valACYclovi 2020-03 Yes [id number] 500mg Take 1 Univers r 500 mg 0-12 tablet by ity of tablet 00:00: mouth ([facility]) Medical times Branch daily. Take 1 tablet BID for 1 week followed by 1 tablet once daily until delivery valACYclovi 2020-03 Yes [id number] 500mg Take 1 Univers r 500 mg 0-12 tablet by ity of tablet 00:00: mouth ([facility]) Medical times Branch daily. Take 1 tablet BID for 1 week followed by 1 tablet once daily until delivery valACYclovi 2020-03 Yes [id number] 500mg Take 1 Univers r 500 mg 0-12 tablet by ity of tablet 00:00: mouth ([facility]) Medical times Branch daily. Take 1 tablet BID for 1 week followed by 1 tablet once daily until delivery valACYclovi 2020-03 Yes [id number] 500mg Take 1 Univers r 500 mg 0-12 tablet by ity of tablet 00:00: mouth ([facility]) Medical times Branch daily. Take 1 tablet BID for 1 week followed by 1 tablet once daily until delivery valACYclovi 2020-03 2022- No [id number] 500mg Take 1 Univers r 500 mg 0-12 11-23 tablet by ity o f tablet 00:00: 00:00 mouth 2 [place] 00 :00 (two) Medical times Branch daily. Take 1 tablet BID for 1 week followed by 1 tablet once daily until delivery Cephalexin 2020-03 No 500mg Four Times CHRISTU (Keflex) 0-08 Daily for S 500 Mg CAP 14:11: [facility] 00 Cephalexin 2020-03 No 500mg MIGUE U (Keflex) 0-08 SSTELIZ 500 Mg CAP 14:11: 00 Cephalexin 2020-03- No 500mg Four Times CHRISTU (Keflex) 0-08 10-16 Daily for S 500 Mg CAP 14:11: 00:00 [facility] 00 :00 Cephalexin 2020-03- No 500mg Four Times CHRISTU (Keflex) 0-08 10-16 Daily for S 500 Mg CAP 14:11: 00:00 [facility] 00 :00 Cephalexin 2020-0 No 500mg Every 8 CHR ISTU (Keflex) 6-10 Hours S 500 Mg CAP 17:08: Health 00 Cephalexin 2020-0 No 500mg Every 8 CHR ISTU (Keflex) 6-10 Hours S 500 Mg CAP 17:08: Health 00 Cephalexin 2020-0 No 500mg MIGUE U (Keflex) 6-10 SSTELIZ 500 Mg CAP 17:08: 00 Cephalexin 2020-0 No 500mg MIGUE U (Keflex) 6-10 SSTELIZ 500 Mg CAP 17:08: 00 Cephalexin 2020-0 2021- No 500mg Every 8 CH RISTU (Keflex) 6- 07-11 Hours S 500 Mg CAP 17:08: 00:00 Health 00 :00 Cephalexin 2020-0 2021- No 500mg Every 8 CH RISTU (Keflex) 6-10 07-11 Hours S 500 Mg CAP 17:08: 00:00 Health 00 :00 Cephalexin 1-0 2021- No 500mg Every 8 CH RISTU (Keflex) 6-10 07-11 Hours S 500 Mg CAP 17:08: 00:00 Health 00 :00 Cephalexin 1-0 2021- No 500mg Every 8 CH RISTU (Keflex) 6-10 07-11 Hours S 500 Mg CAP 17:08: 00:00 Health 00 :00 Cephalexin 2020-0 2021- No 500mg LAUREN TU (Keflex) 6-10 07-11 SSTELIZ 500 Mg CAP 17:08: 00:00 00 :00 Cephalexin 2020- No 500mg LAUREN TU (Keflex) 6-10 10-07 SSTELIZ 500 Mg CAP 17:08: 00:00 00 :00 ondansetron 2021- No [id number] 4mg Take 1 Univers (ZOFRAN) 4 4-15 10-18 tablet by ity of mg tablet 00:00: 00:00 mouth [place] 00 :00 every 8 Medical (eight) Branch hours as needed for Nausea and Vomiting (N/V). No Home No [facility]RISTU Meds S Health No Home No CHRISTU Meds S Health No Home No [facility]STU Meds S Health No Home No [facility]RISTU Meds S Health No Home No CHRISTU Meds SSTELIZ No Home No CHRISTU Meds SSTELIZ Immunizations Ordered Filled Date Status Comments Source Immunization Name Immunization Name Influenza Virus 2021-02-06 Completed Universit y of Vaccine Quad IM, 00:00:00 [facility] dical Preserv and ABX Branch Free 6 MO-64 YRS Influenza Virus 2021-02-06 Completed Universit y of Vaccine Quad IM, 00:00:00 [facility] dical Preserv and ABX Branch Free 6 MO-64 YRS Influenza Virus 2021-02-06 Completed Universit y of Vaccine Quad IM, 00:00:00 [facility] dical Preserv and ABX Branch Free 6 MO-64 YRS Influenza Virus 2021-02-06 Completed Universit y of Vaccine Quad IM, 00:00:00 [facility] dical Preserv and ABX Branch Free 6 MO-64 YRS Influenza Virus 2021-02-06 Completed Universit y of Vaccine Quad IM, 00:00:00 [facility] dical Preserv and ABX Branch Free 6 MO-64 YRS Influenza Virus 2021-02-06 Completed Universit y of Vaccine Quad IM, 00:00:00 [facility] dical Preserv and ABX Branch Free 6 MO-64 YRS HPV9 2021-01-24 Completed University 00:00:00 [facility] HPV9 2021-01-24 Completed University 00:00:00 [facility] HPV9 2021-01-24 Completed University 00:00:00 [facility] HPV9 2021-01-24 Completed University of 00:00:00 [facility] HPV9 2021-01-24 Completed University of 00:00:00 [facility] HPV9 2021-01-24 Completed University of 00:00:00 [facility] Branch HPV9 2020-03-20 Completed University of 00:00:00 [facility] Branch HPV9 2020-03-20 Completed University of 00:00:00 [facility] Branch HPV9 2020-03-20 Completed University of 00:00:00 [facility] Branch HPV9 2020-03-20 Completed University of 00:00:00 [facility] Branch HPV9 2020-03-20 Completed University of 00:00:00 [facility] Branch HPV9 2020-03-20 Completed University of 00:00:00 [facility] Branch HPV9 2020-01-19 Completed University of 00:00:00 [facility] Branch HPV9 2020-01-19 Completed University of 00:00:00 [facility] Branch HPV9 2020-01-19 Completed University of 00:00:00 [facility] HPV9 2020-01-19 Completed University of 00:00:00 [facility] HPV9 2020-01-19 Completed University of 00:00:00 [facility] HPV9 2020-01-19 Completed University of 00:00:00 [facility] TDAP 2015-11-20 Completed University of 00:00:00 [facility] TDAP 2015-11-20 Completed University of 00:00:00 [facility] TDAP 2015-11-20 Completed University of 00:00:00 [facility] TDAP 2015-11-20 Completed University of 00:00:00 [facility] TDAP 2015-11-20 Completed University of 00:00:00 [facility] TDAP 2015-11-20 Completed University of 00:00:00 [facility] Influenza Virus 2015-06-18 Completed Universit y of Vaccine (3+ yrs) 00:00:00 [facility] Influenza Virus 2015-06-18 Completed Universit y of Vaccine (3+ yrs) 00:00:00 [facility] Influenza Virus 2015-06-18 Completed Universit y of Vaccine (3+ yrs) 00:00:00 [facility] Influenza Virus 2015-06-18 Completed Universit y of Vaccine (3+ yrs) 00:00:00 [facility] Influenza Virus 2015-06-18 Completed Universit y of Vaccine (3+ yrs) 00:00:00 [facility] Influenza Virus 2015-06-18 Completed Universit y of Vaccine (3+ yrs) 00:00:00 [facility] HPV9 Unknown Completed [facility] HPV9 Unknown Completed [facility] Influenza Virus Unknown Completed [facility] of Vaccine (3+ yrs) [facility] TDAP Unknown Completed [facility] Vital Signs Vital Name Observation Time Observation Value Comments Source Systolic blood 2021-11-28 18:26:00 127 mm[Hg] Univer sity of pressure [facility] Diastolic blood 2021-11-28 18:26:00 81 mm[Hg] Unive rsity of pressure [facility] Heart rate 2021-11-28 18:26:00 104 /min [facility] Body height 2021-11-28 18:26:00 162.6 cm [facility] Body weight 2021-11-28 18:26:00 55.157 kg [facility] BMI 2021-11-28 18:26:00 20.87 kg/m2 [facility] BP Diastolic 2021-09-16 18:22:00 103 mm[Hg] [facility] Health BP Systolic 2020-09-22 15:10:00 118 mm[Hg] [facility] Health Heart Rate 2020-09-22 15:10:00 80 /min [facility] Respiratory rate 2020-09-22 15:10:00 18 /min [facility] Body Temperature 2020-09-22 15:10:00 98.6 [degF] [facility] BP Diastolic 2020-09-06 17:21:00 75 mm[Hg] [facility] Health BP Systolic 2020-09-06 17:21:00 111 mm[Hg] [facility] Health Heart Rate 2020-09-06 17:21:00 71 /min [facility] Respiratory rate 2020-09-06 17:21:00 20 /min [facility] Body Temperature 2020-09-06 17:21:00 98.6 [degF] [facility] Health BP Diastolic 2020-09-06 11:55:00 75 mm[Hg] [facility] BP Systolic 2020-09-06 11:55:00 111 mm[Hg] [facility] Heart Rate 2020-09-06 11:55:00 71 /min [facility] Health Respiratory rate 2020-09-06 11:55:00 20 /min [facility] Body Temperature 2020-09-06 11:55:00 98.6 [degF] [facility] [employer] Procedures Procedure Date / Time Performing Clinician Source Performed DISCLOSURE AND CONSENT, 2021-11-28 05:01:00 Doctor Unassigned, N o [facility] MEDICAL AND SURGICAL Name Medical Bra [facility] PROCEDURES POCT TEST 2021-11-28 00:00:00 Steven Narayanan [facility] Ther/proph/diag inj 2020-12-27 00:00:00 [facility] SC/IM Betamethasone acet&sod 2020-12-27 00:00:00 [facility] phosp non-stress test 2020-12-26 00:00:00 [facility] outpt clinic 2020-12-26 00:00:00 [facility] visit Ther/proph/diag inj 2020-12-26 00:00:00 [facility] SC/IM NON-STRESS TEST 2020-12-26 00:00:00 [facility] URINALYSIS AUTO W/SCOPE 2020-12-26 00:00:00 [facility] ASSAY OF 2020-12-26 00:00:00 [facility]3]lorne [facility] FIBRONECTIN URINE CULTURE/COLONY 2020-12-26 00:00:[address] [facility] COUNT SARSCOV CORONAVIRUS AG 2020-12-26 00:00:00 [facility] outpt clinic 2020-12-26 00:00:00 [facility] visit Betamethasone acet&sod 2020-12-26 00:00:00 [facility] phosp Terbutaline sulfate inj 2020-12-26 00:00:00 [facility] outpt clinic 2020-09-22 00:00:00 [facility] visit ROUTINE VENIPUNCTURE 2020-09-06 00:00:00 [facility] US LIMITED FETUS(S) 2020-09-06 00:00:00 [facility] METABOLIC PANEL IONIZED 2020-09-06 00:00:00 [facility] CA URINALYSIS AUTO W/O 2020-09-06 00:00:00 [facility] SCOPE CHORIONIC GONADOTROPIN 2020-09-06 00:00:00 [facility] TEST BLOOD TYPING SEROLOGIC 2020-09-06 00:00:00 [facility] ABO BLOOD TYPING SEROLOGIC 2020-09-06 00:00:00 [facility] RH(D) URINE CULTURE/COLONY 2020-09-06 00:00:00 [facility] EMERGENCY DEPT VISIT 2020-09-06 00:00:[address] [facility] Limited obstetrical 2020-09-06 00:00:00 [facility] ultrasound Plan of Care Planned Activity Planned Date Details Comments Source Future Scheduled Test Bacteria Ur Cult [code = JAZMYN 630-4] Future Scheduled Test Bacteria Ur Cult [code = JAZMYN 630-4] Future Scheduled Test Bacteria Ur Cult [code = JAZMYN 630-4] Goal Patient referral [code = [facility] NIMA [id number] ] Goal Patient referral [code = [facility] [id number] ] Goal Patient referral [code = [facility] NIMA [id number] ] Goal Patient referral [code = [facility] NIMA [id number] ] Instructions Threatened Miscarriage LAUREN TUSSTELIZ Instructions Urinary Tract Infection, CHR ISTUSSTELIZ Adult (DC) Instructions Threatened Miscarriage LAUREN TUSSTELIZ Instructions Urinary Tract Infection, CHR ISTUSSTELIZ Adult (DC) Instructions Urinary Tract Infections CHR ISTUSSTELIZ in Adults Instructions Labor CHRISTUSSTELIZ Instructions Lowering Your Risk of MIGUE USSTELIZ Instructions Threatened Miscarriage LAUREN TUSSTELIZ Instructions Urinary Tract Infection, CHR ISTUSSTELIZ Adult (DC) Encounters Start End Encounter Admission Attending Care Care Encounter Source Date/Time Date/Time Type Type Clinicians Facility Department ID 2021-01-29 Outpatient X [facility] JOAO [id number] Univers 06:17:03 [facility] 2021-01-29 Emergency [facility] [id number] Univers 05:36:26 [facility] 2022-03-26 2022-03-26 Outpatient Amando NEVAREZ, [facility] [id number] Univers 08:30:00 08:30:00 JENNIFER [facility] 2022-02-19 2022-02-19 Telephone ORTIZ Narayanan [id number] Univers 00:00:00 00:00:00 Steven L Y HEALTH [id number] i [place] [phone] [address] 2021-12-04 2021-12-04 Outpatient Amando ANDERSON [facility] [id number] Univers 08:30:00 08:30:00 POP [facility] 2021-12-03 2021-12-03 Telephone ORTIZ Narayanan 1.2.840.114 [id number] Univers 00:00:00 00:00:00 Steven L Y HEALTH 350.1.13.10 i [place] [phone] [address] 2021-12-03 2021-12-03 Telephone ORTIZ Narayanan 1.2.840.114 [id number] Univers 00:00:00 00:00:00 Steven L Y HEALTH 350.1.13.10 i ty [place] [id number] [address] 2021-11-28 2021-11-28 Outpatient [facility] [id number] Univers 10:00:00 14:12:05 STEVEN ity [facility] 2021-11-28 2021-11-[address] [facility] 1.2.840.114 [id number] Univers 10:00:00 14:12:05 Visit Steven L Y HEALTH 350.1.13.10 i ty [place] [id number] [address] 2021-11-28 2021-11-28 Outpatient [facility] [id number] Univers 10:00:00 14:12:05 STEVEN ity [facility] 2021-11-28 2021-11-28 Orders Doctor JORGITO 1.2.840.114 [id number] Univers 00:00:00 00:00:00 Only Unassigned, VIK 350.1.13.10 ity of [place] [facility] 4.2.7.2.686 Moshe as [phone] [address] 2021-11-18 2021-11-18 Outpatient [facility] [id number] Univers 13:40:00 13:40:00 STEVEN ity [facility] 2021-11-18 2021-11-18 Outpatient [facility] [id number] Univers 13:40:00 13:40:00 STEVEN ity [facility] 2021-11-18 2021-11-18 Telephone ORTIZ Narayanan 1.2.840.114 [id number] Univers 00:00:00 00:00:00 Steven L HEALTH 350.1.13.10 i ty [place] [id number] [address] 2021-10-20 2021-10-20 Patient [facility] 1.2.840.114 [id number] Univers 00:00:00 00:00:00 Secure Msg Lachelle Dent PHLEBOTOMIST 350.1.13.10 ity of [facility] 4.2.7.2.686 Moshe as MATERNAL [phone] [facility] & CHILD [address] [place] [address] 2021-10-17 2021-10-17 Patient Doctor [facility] 1.2.840.114 [id number] Univers 00:00:00 00:00:00 Secure Msg Unassigned, PHLEBOTOMIST 350.1.13.10 ity of [place] [facility] 4.2.7.2.686 Moshe as MATERNAL [phone] [facility] CHILD [address] [place] [address] 2021-10-15 2021-10-15 Telephone [facility] 1.2.840.114 [id number] Univers 00:00:00 00:00:00 Jennifer PHLEBOTOMIST 350.1.13.10 it y of [facility] 4.2.7.2.686 Moshe as MATERNAL [phone] [facility] CHILD [address] [place] [address] 2021-10-14 2021-10-14 Case [facility] 1.2.600.002 [id number] Univers 00:00:00 00:00:00 Management Jennifer PHLEBOTOMIST 350.1.13.10 ity of [facility] 4.2.7.2.686 Moshe as MATERNAL [phone] [address] 2021-09-23 2021-09-23 Office [facility] 1.2.952.323 [id number] Univers 15:30:00 17:10:11 Visit Jennifer PHLEBOTOMIST 350.1.13.10 it y of [facility] 4.7.2.686 Moshe as MATERNAL [phone] [address] 2021-09-23 2021-09-23 Outpatient R ROQUE [facility] [id number] Univers 15:30:00 17:10:11 JENNIFER antonio [facility] 2021-09-23 2021-09-23 Outpatient R ROQUE [facility] [id number] Univers 15:30:00 15:30:00 JENNIFER antonio [facility] 2021-09-23 2021-09-23 Orders Doctor BULL 1.2.840.114 [id number] Univers 00:00:00 00:00:00 Only Unassigned, VIK 350.1.13.10 ity of [place] [facility] 4.2.7.2.686 Moshe as [phone] [address] 2021-09-23 2021-09-23 Letter [facility] 1.2.883.142 [id number] Univers 00:00:00 00:00:00 (Out) Jennifer PHLEBOTOMIST 350.1.13.10 it y of [address]686 Moshe as MATERNAL [phone] [facility] & [address] 2021-09-16 2021-09-16 Registered ER NICHOLAS GÓMEZ [id number] CHRISTU 18:17:00 20:11:00 Emergency OMKAR 51 S Room [facility] 2021-07-06 2021-07-06 Departed ER SHAYE KHAN AE0 [id number] CHRISTU 00:43:00 03:23:00 Emergency 16 S Room [facility] 2021-03-30 2021-03-30 [facility] [id number] GNOSTICISM 18:04:00 20:42:00 Department S AMANDA UM Patient T Visit HOSPITA L 2021-03-30 2021-03-30 Emergency YOEL, [facility] [id number] Sikh 12:04:00 12:04:00 DARRELLA Hospi ta l ([facility]) 2021-03-11 2021-03-11 Outpatient [facility] [id number] Univers 13:45:00 14:52:23 JENNIFER antonio [facility] 2021-03-11 2021-03-11 Outpatient [facility] [id number] Univers 13:45:00 14:52:23 JENNIFER antonio [facility] 2021-03-11 2021-03-11 Office [facility] 1.2.250.338 [id number] Univers 13:22:58 14:52:23 Visit Jennifer PHLEBOTOMIST 350.1.13.10 it y of [address]686 Moshe as MATERNAL [phone] [facility] & CHILD [address] [place] [address] 2021-03-11 2021-03-11 Outpatient Amando NEVAREZ [facility] [id number] Univers 13:45:00 13:45:00 JENNIFER antonio [facility] 2021-03-07 2021-03-07 Outpatient R COURT [facility] [id number] Univers 10:30:00 10:30:00 DESTINY lisandra [facility] 2021-02-28 2021-02-28 Outpatient R ARPITA [facility] [id number] Univers 14:15:00 14:15:00 ROSALES antonio [facility] 2021-02-14 2021-02-14 Office [facility] 1.2.110.887 [id number] Univers 09:01:57 10:06:29 Visit Jennifer PHLEBOTOMIST 350.1.13.10 it y [facility] 4.2.7.2.686 Moshe as MATERNAL [phone] [facility] & CHILD [address] [place] [address] 2021-02-14 2021-02-14 Outpatient Amando NEVAREZ [facility] [id number] Univers 09:00:00 10:06:29 JENNIFER antonio [facility] 2021-02-14 2021-02-14 Outpatient Amando NEVAREZ [facility] [id number] Univers 09:00:00 09:00:00 JENNIFER lisandra [facility] 2021-02-14 2021-02-14 Orders Doctor JORGITO 1.2.840.114 [id number] Univers 00:00:00 00:00:00 Only Unassigned, VIK 350.1.13.10 ity of [facility] 4.2.7.2.686 Moshe as [phone] [address] 2021-02-13 2021-02-13 Outpatient Amando ERIC [facility] [id number] Univers 15:00:00 15:00:00 DESTINY lisandra [facility] 2021-02-13 2021-02-[address] [facility] [id number] Univers 15:00:00 15:00:00 DESTINY lisandra [facility] 2021-02-13 2021-02-[address] [facility] 1.2.209.558 [id number] Univers 00:00:00 00:00:00 Destiny PHLEBOTOMIST 350.1.13.10 ity of REGIONAL 4.2.7.2.686 Moshe as MATERNAL [phone] [facility] & [address] 2021-02-11 2021-02-[address] [facility] 1.2.254.268 [id number] Univers 00:00:00 00:00:00 Destiny PHLEBOTOMIST 350.1.13.10 ity of [facility] 4.2.7.2.686 Moshe as MATERNAL [phone] [address] 2021-02-06 2021-02-06 Routine Cindy [facility] 1.2.840.114 [id number] Univers 14:00:15 15:09:26 Brissa R PHLEBOTOMIST 350.1.13.10 ity of Visit [facility] 4.2.7.2.686 Moshe as MATERNAL [id number] [address] 2021-02-06 2021-02-06 Outpatient R CINDY [facility] [id number] Univers 14:00:00 15:09:26 BRISSA ity of [facility] 2021-02-02 2021-02-02 Emergency ER NICHOLAS CASEY [id number] CHRIST 14:07:00 16:51:[address] 2021-01-31 2021-01-31 Telephone ORTIZ Narayanan 1.2.840.114 [id number] Univers 00:00:00 [facility]:00:00 [facility] 350.1.13.10 i ty of [facility] 4.2.7.2.[place] [id number] [facility] [address] [place] 2021-01-24 2021-01-24 Nurse Visit, EditaRmchp Nurse [facility] 1.2 .840.114 [id number] Univers 13:00:49 13:47:54 Visit Destiny Erci PHLEBOTOMIST 350.1.13.10 ity of REGIONAL 4.2.7.2.686 Moshe as MATERNAL [phone] Med ical & CHILD [address] [place] [address] 2021-01-24 2021-01-24 Outpatient [facility] [id number] Univers 13:00:00 13:47:54 DESTINY [facility] 2021-01-21 2021-01-21 Outpatient R [facility] [id number] Univers 08:30:00 08:30:00 [facility] 2021-01-21 2021-01-21 Telephone ORTIZ Narayanan 1.2.840.114 [id number] Univers 00:00:00 00:00:00 Steven L HEALTH 350.1.13.10 i ty [place] [id number] [address] 2021-01-18 2021-01-18 Nurse Renzo BULL 1.2.840.114 [id number] Univers 00:00:00 00:00:00 Triage VIK Valerio 350.1.13.10 [facility] 4.2.7.2.686 Moshe as [phone] [address] 2021-01-18 2021-01-18 Letter ORTIZ Narayanan 1.2.840.114 [id number] Univers 00:00:00 00:00:00 (Out) Steven L HEALTH 350.1.13.10 i ty [place] [id number] [address] 2021-01-17 2021-01-17 Outpatient [facility] [id number] Univers 14:40:00 14:40:00 MARTIN [facility] 2021-01-17 2021-01-17 Outpatient R [facility] [id number] Univers 13:30:00 13:30:00 [facility] 2021-01-15 2021-01-15 Nurse Renzo BULL 1.2.840.114 [id number] Univers 00:00:00 00:00:00 Triage VIK Valerio 350.1.13.10 [facility] 4.2.7.2.686 Moshe as [phone] [facility] [address] 2021-01-15 2021-01-15 Telephone SHELLY Narayanan 1.2.840.114 8 [id number] Univers 00:00:00 00:00:00 [facility] 350.1.13.10 i ty of CL[place] [id number] [facility] [address] 2021-01-15 2021-01-[address] [facility] 1.2.840.114 [id number] Univers 00:00:00 00:00:00 Steven L Y HEALTH 350.1.13.10 i ty of CL[place] [id number] [facility] [address] 2021-01-12 2021-01-14 [facility] Oracio Stevenernie BULL 1.2.840. 114 [id number] Univers 18:31:00 18:06:00 Encounter Lenard Avila [facility] VIK 350.1.1 3.10 ity [facility] 4.2.7.2.686 Moshe as [id number] [facility] [address] 2021-01-13 2021-01-13 Anesthesia JORGITO Davis 1.2.840.114 [id number] Univers 20:01:23 20:01:23 Event Ronnie VIK 350.1.13.10 it y [facility] 4.2.7.2.686 Moshe as [phone] [facility] [address] 2021-01-12 2021-01-13 Surgery JORGITO Avila 1.2.840.114 [id number] Univers 22:50:00 00:43:00 Weinberg VIK 350.1.13.10 it y [facility] 4.2.7.2.686 Moshe as [id number] [facility] [address] 2021-01-12 2021-01-12 Nurse JORGITO Nova 1.2.840.114 [id number] Univers 00:00:00 00:00:00 Triage Noemi ALVAY 350.1.13.10 ity [facility] 4.2.7.2.686 Moshe as [phone] [facility] [address] 2021-01-122021-01-12 Orders Doctor JORGITO 1.2.840.114 [id number] Univers 00:00:00 00:00:00 Only Unassigned, VIK 350.1.13.10 ity of [place] [facility] 4.2.7.2.686 Moshe as [phone] [facility] [address] 2021-01-09 2021-01-09 Orders Doctor JORGITO 1.2.840.114 [id number] Univers 00:00:00 00:00:00 Only Unassigned, VIK 350.1.13.10 ity of [place] [facility] 4.2.7.2.686 Moshe as [id number] [facility] [address] 2021-01-06 2021-01-08 Hospital Colleen Becerra 1.2.840. 114 [id number] Univers 22:48:00 16:59:00 Encounter Martin Mahajan 350.1.13.10 ity of HOSPITAL 4.2.7.2.686 Moshe as [phone] [facility] [address] 2021-01-04 2021-01-04 Departed CODY PETERSON [id number] CHRIST 11:17:00 14:24:[address] NATHANAEL Room [place] 2021-01-04 2021-01-04 Departed ER NICHOLAS BELCHER AE00 [id number] CHRISTU 11:17:00 14:24:00 Emergency MARNI 79 S Room [facility] 2021-01-04 2021-01-04 Nurse JORGITO Prasad 1.2.840.114 [id number] Univers 00:00:00 00:00:00 Triage Darcy Hernandez VIK 350.1.13.10 it y of HOSPITAL 4.2.7.2.686 Moshe as [phone] [facility] [address] 2021-01-04 2021-01-04 Telephone ORTIZ Narayanan 1.2.840.114 [id number] Univers 00:00:00 00:00:00 [facility] 350.1.13.10 i ty of [facility] 4.2.7.2.[place] [id number] [facility] [address] 2021-01-03 2021-01-03 [facility] 1.2.840.114 [id number] Univers 15:54:06 16:48:17 Steven L Y HEALTH 350.1.13.10 ity of Visit CLINICS [place].2.[place] [id number] [address] 2021-01-03 2021-01-03 Outpatient [facility] [id number] Univers 11:40:00 11:40:00 STEVEN ity [facility] 2020-12-31 2020-12-31 [facility]phone [facility] 1.2.840.114 [id number] Univers 00:00:00 00:00:00 Steven L Y HEALTH 350.1.13.10 i ty of CL[place] [id number] [address] 2020-12-27 2020-12-27 [facility] 1.2.840.114 [id number] Univers 13:20:21 14:34:50 Steven L Y HEALTH 350.1.13.10 ity of Visit CLINICS 4[place]7.2.[place] [id number] [address] 2020-12-27 2020-12-27 Outpatient Amando [facility] [id number] Univers 13:40:00 13:40:00 STEVEN ity [facility] 2020-12-27 2020-12-27 Registered CODY PETERSON AE00 [id number] CHRISTU 07:56:00 07:56:[address] [facility] 2020-12-27 2020-12-27 Registered NICHOLAS BENZ AE00 [id number] CHRISTU 07:56:00 07:56:00 Clinic BALBINA 05 [facility] 2020-12-26 2020-12-26 Departed CODY PETERSON [id number] CHRISTU 10:47:00 17:30:[address] [facility] Z [place] 2020-12-26 2020-12-26 Departed NICHOLAS CASTLE [id number] CHRISTU 10:47:00 10:47:00 Clinic BALBINA 84 S Health 2020-12-13 2020-12-13 Routine SHELLY NarayananIT 1.2.840.114 [id number] Univers 13:29:15 13:49:15 Steven L Y HEALTH 350.1.13.10 ity of Visit CL[place]ICS [place] [id number] [address] 2020-12-13 2020-12-13 Outpatient Amando [facility] [id number] Univers 13:20:00 13:20:00 STEVEN ity [facility] 2020-12-06 2020-12-06 Routine Steven Narayanan [facility] 1.2.840 .114 [id number] Univers 09:50:52 10:51:42 Mahajan, Martin Y HEALTH 350.1.13.10 ity of Visit CL[place]ICS [place] [id number] [address] 2020-12-06 2020-12-06 Routine Oracio Steven L [facility] 1.2.840 .114 [id number] Univers 09:50:52 10:51:42 Mahajan, Martin Y HEALTH 350.1.13.10 ity of Visit CLINICS [place]2.[place] [id number] [address] 2020-12-06 2020-12-06 Outpatient Amando MAHAJAN, [facility] [id number] Univers 09:40:00 09:40:00 MARTIN ity [facility] 2020-11-30 2020-11-30 Outpatient Amando FLOREZ, [facility] [id number] Univers 15:45:00 15:45:00 NOREEN ity [facility] 2020-11-15 2020-11-15 Outpatient Amando NARAYANAN, [facility] [id number] Univers 13:30:00 13:30:00 STEVEN ity [facility] 2020-11-01 2020-11-01 Routine SHELLY NarayananIT 1.2.840.114 [id number] Univers 13:47:43 14:35:34 Steven L Y HEALTH 350.1.13.10 ity of Visit CL[place]ICS [place] [id number] [address] 2020-11-01 2020-11-01 Outpatient R ORACIO [facility] [id number] Univers 14:15:00 14:15:00 STEVEN ity of [facility] 2020-10-04 2020-10-04 Routine ORTIZ Narayanan 1.2.840.114 [id number] Univers 15:43:57 16:34:19 Steven [facility] 350.1.13.10 ity of Visit CLINICS 4[place].2.[place] [id number] [address] 2020-10-04 2020-10-04 Outpatient R [facility] [id number] Univers 15:30:00 15:30:00 STEVEN ity [facility] 2020-09-28 2020-09-28 Audit Clerk 2, Amanda-Mfm Ultrasound [facility] 1 .2.840.114 [id number] Univers 09:02:36 10:02:36 Visit David Simental PHLEBOTOMIST 350.1.13.10 ity of [facility] 4.2.7.2.686 Moshe as MATERNAL [phone] [facility] ical & CHILD [address] [place] [address] 2020-09-28 2020-09-28 Outpatient P [facility] [id number] Univers 09:00:00 09:00:00 ity of [facility] 2020-09-22 2020-09-22 Departed CODY PETERSON [id number] CHRISTU 14:10:00 16:05:00 Clinic [facility] [address] 40 SSTELI Z Corine 2020-09-22 2020-09-22 Departed LINWOOD PETERSON AE0 [id number] CHRISTU 14:10:00 14:10:00 Clinic , MORELIA 40 [address] Health 2020-09-22 2020-09-22 Nurse JORGITO Ramos 1.2.840.114 [id number] Univers 00:00:00 00:00:00 Triage Aneatrice VIK 350.1.13.[address] [facility] 4.2.7.2.686 Moshe as [id number] [facility] [address] 2020-09-09 2020-09-09 Telephone Oracio, SHELLY 1.2.840.114 [id number] Univers 00:00:00 00:00:00 Steven L Y HEALTH 350.1.13.10 i ty of CL[place]ICS [place] [id number] [facility] [address] 2020-09-07 2020-09-07 Audit Clerk [facility] 1.2.840.114 [id number] Univers 16:09:55 16:24:55 Visit FlorezNoreen Y HEALTH 350.1.13.10 ity of CL[place] 4[place]2.[place] [id number] [facility] [address] 2020-09-07 2020-09-07 Routine Florez, [facility] 1.2.840.114 [id number] Univers 14:20:10 16:05:32 Noreen Y HEALTH 350.1.13.10 ity of Visit CL[place]ICS 4[place]2.[place].2.[place] [id number] [place] [address] [place] 2020-09-07 2020-09-07 Outpatient R [facility] [id number] Univers 13:30:00 13:30:00 NOREEN ity of [facility] 2020-09-06 2020-09-06 Departed CODY PETERSON [id number] CHRISTU 12:41:00 17:23:[address] SSTE NATHANAEL Room [place] 2020-09-06 2020-09-06 Departed NICHOLAS PETERSON [id number] CHRISTU 11:42:00 17:23:00 Emergency 79 S Room Health 2020-09-06 2020-09-06 Outpatient Amando IBARRA, [facility] [id number] Univers 11:00:00 11:00:00 MEDINA ity of [facility] 2020-09-04 2020-09-04 Telephone Oracio, SHELLY 1.2.840.114 [id number] Univers 00:00:00 00:00:00 Steven L Y HEALTH 350.1.13.10 i ty of CL[place]ICS [place] [id number] [place] [address] [place] 2020-08-28 2020-08-28 Patient SHELLY Narayanan 1.2.840.114 [id number] Univers 00:00:00 00:00:00 Secure Msg Steven L Y HEALTH 350.1.13.10 ity of [place] [id number] [address] 2020-08-28 2020-08-28 Patient ORTIZ Narayanan 1.2.840.114 [id number] Univers 00:00:00 00:00:00 Secure Msg Steven L Y HEALTH 350.1.13.10 ity of CL[place] [id number] [address] 2020-08-21 2020-08-[address] [facility] 1.2.840.114 [id number] Univers 00:00:00 00:00:00 Steven L Y HEALTH 350.1.13.10 i ty of CL[place]ICS [place] [id number] [address] 2020-08-13 2020-08-13 Telephone SHELLY Narayanan 1.2.840.114 [id number] Univers 00:00:00 00:00:00 Steven L Y HEALTH 350.1.13.10 i ty of CL[place]ICS [place].2.[place] [id number] [address] 2020-08-09 2020-08-09 Audit Clerk [facility] 1.2.840.114 8 [id number] Univers 13:53:26 14:08:26 Visit Oracio Steven L Y HEALTH 350.1.13.10 ity of CL[place]ICS [place]2.[place] [id number] [place] [address] [place] 2020-08-09 2020-08-09 Routine SHELLY Narayanan 1.2.840.114 [id number] Univers 13:25:35 13:49:52 Steven L Y HEALTH 350.1.13.10 ity of Visit CLINICS 4[place].2.[place] [id number] [facility] [address] [place] 2020-08-09 2020-08-09 Outpatient Amando NARAYANAN [facility] [id number] Univers 13:30:00 13:30:00 STEVEN ity of [facility] 2020-08-09 2020-08-09 Orders Doctor JORGITO 1.2.840.114 [id number] Univers 00:00:00 00:00:00 Only Unassigned, VIK 350.1.13.10 ity of [place] [facility] 4.2.7.2.686 Moshe as [id number] [facility] [address] 2020-07-13 2020-07-13 Patient Doctor JORGITO 1.2.840.114 [id number] Univers 00:00:00 00:00:00 Secure Msg Unassigned, VIK 350.1.13.10 ity of [facility] 4.2.7.2.686 Moshe as [id number] [facility] [address] 2020-07-13 2020-07-13 Patient Doctor [facility] 1.2.443.436 [id number] Univers 00:00:00 00:00:00 Secure Msg Unassigned, Y HEALTH 350.1.13.10 ity of [place] [facility] 4[place]2.7.2.[place] [id number] [facility] [address] [place] 2020-07-12 2020-07-12 Audit Clerk [facility] 1.2.840.114 [id number] Univers 15:35:33 15:50:33 Visit Steven Narayanan L Y HEALTH 350.1.13.10 ity of CL[place]ICS [place].2.[place] [id number] [facility] [address] 2020-07-12 2020-07-12 Initial Oracio [facility] 1.2.840.114 [id number] Univers 14:05:25 15:36:43 Steven L Y HEALTH 350.1.13.10 ity of Visit CLINICS [place].2.[place] [id number] [place] [address]6415 [place] 2020-07-12 2020-07-12 Outpatient Amando NARAYANAN [facility] [id number] Univers 13:00:00 13:00:00 STEVEN antonio [facility] 2020-07-04 2020-07-04 [id number] S[facility] 14:33:25 14:33:25 VINCENT clark ([place]) 2020-06-04 2020-06-04 Office Graham [facility] Encoun ter/ Legacy 00:00:00 00:00:00 Visit Brandie [id number] Com aakash [id number] Health 2020-05-30 2020-05-30 Office Gretchen Buckley [facility] Encounter/ Legacy 00:00:00 00:00:00 Visit Lakisha Lewis [id number] Lena Jiang 1558 60 [facility] Results Test Description Test Time Test Comments Results Result Comments Source POCT TEST 2021-11-28 20:06:00 Test Item Value Reference Range Interpretation Comme nts POCT PREG (test code = 1605) Negative On board controls acceptable with C Line (test code = 3574) Yes POCT PREG LOT # (test code = 3575) POCT PREG TEST DATE (test code = 3576) [id number]00 Test Item Value Reference Range Interpretation Comments POCT PREG (test code = 1605) Negative On board controls acceptable with C Yes Line (test code = 3574) POCT PREG LOT # (test code = 3575) POCT PREG TEST DATE (test code = 3576) [facility] [id number] 00:30:00 Test Item Value Reference Range Interpretation Comments Respiratory Virus Source Nasopharyngeal Swab (test code = 26451-5) [employer] SystemsPbhyubIRMO-[id number]-6 RNA Resp Ql TITO+[id number] 00:30:00 Test Item Value Reference Range Interpretation Comments Coronavirus (COVID-19)(PCR) (test NEGATIVE Negative code = 60469-3) [facility]ASExperticityFLUAV RNA Nph Ql TITO+whu-[id number] 00:30:00 Test Item Value Reference Range Interpretation Comments Influenza Virus Type A (PCR) (test NEGATIVE Negative code = 30365-6) NICHOLAS De AndaFLUBV RNA Nph Ql TITO+fww-[id number] 00:30:00 Test Item Value Reference Range Interpretation Comments Influenza Virus Type B (PCR) (test NEGATIVE Negative code = 18514-4) NICHOLAS De AndaRSV RNA Nph Ql TITO+orq-[id number] 00:30:00 Test Item Value Reference Range Interpretation Comments Respiratory Syncytial Virus (PCR) NEGATIVE Negative (test code = 11177-2) NICHOLAS De 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 [id number] 00:30:00 Test Item Value Reference Range Interpretation Comments N/A (test code = 96379-1) Unknown NICHOLAS De AndaPatient has symptoms for condition of [id number] 00:30:00 Test Item Value Reference Range Interpretation Comments N/A (test code = 18280-0) Unknown [facility]ICHOL[facility] De AndaPt [facility]ad[facility]185-26-91 00:30:00 Test Item Value Reference Range Interpretation Comments N/A (test code = 16000-2) Unknown NICHOLAS HealthPregnancy ydkfni5622-13-13 00:30:00 Test Item Value Reference Range Interpretation Comments N/A (test code = 73607-3) Unknown NICHOLAS De AndaPatient resides in congregate care xwxeycs2291-50-86 00:30:00 Test Item Value Reference Range Interpretation Comments N/A (test code = 35348-0) Unknown NICHOLAS De AndaCHESDavid 1 VIEW [id number] 14:17:00 [facility] : 1995 Sex: F[address] [id number] IMAGING REPORTPatient Name: Roselyn OLVERA of Service: [id number]: 25 Sex: F Order #: [id number] Room: ERSDOB: 1995 X-Ray Number: [id number] Record Number: [id number] Hospital Number: [id number] Physician: BELINDA DIALLO -Ordering Physician: KIRILL HUCR[facility] ACCESS HOSPITALDavid 1 VIEW PORTABLE 03/30/2021 1:26 PM:History: Cough with fever . Covid 19 infection.Comparison: None.Technique: 1 view chestFindings:The cardiomediastinal silhouette is normal. The lungs are clear withoutinfiltrate, effusion, or pneumothorax. The bones are intact.Impression:No acute cardiopulmonary process.Electronically Signed By: Jose Collins M.D., 03/30/2021 2:15 PMLegally authenticated by JASON DIAZ 2021-03-30 14:15:16COVID SYMPTOMATIC ER [id number] 12:50:00 Test Item Value Reference Range Interpretation Comments CORONAVIRUS (COVID-19)BY PCR (test POSITIVE code = NIH00BLQ) Urinalysis specimen collection [id number] 11:52:00 Test Item Value Reference Range Interpretation Comments Urine Source (test code = 84412-3) [facility] HealthColor of Urine by Gsys1387-11-92 11:52:00 Test Item Value Reference Range Interpretation Comments Urine Color (test code = 21883-4) Yellow Yel-Melissa * [facility] HealthUrine clarity zzlmjwbwkdubu0110-47-24 11:52:00 Test Item Value Reference Range Interpretation Comments Urine Appearance (test code = Light Turbid Clear * 99948-1) [facility] HealthUrine pH measurement by automated test inyvm2101-09-10 11:52:00 Test Item Value Reference Range Interpretation Comments Urine pH (test code = 75178-3) 6.5 5.0-8.0 [facility] HealthSpecific gravity of Urine by Automated test [id number] 11:52:00 Test Item Value Reference Range Interpretation Comments Urine Specific [place] (test code = 1.020 1.005-1.030 00421-8) [facility] HealthUrine protein measurement by automated test strip (mass/volume) 2021-01-04 11:52:00 Test Item Value Reference Range Interpretation Comments Urine Protein (test code = 42458-0) 30 Negative * [facility] HealthUrine glucose measurement by automated test strip (mass/volume) 2021-01-04 11:52:00 Test Item Value Reference Range Interpretation Comments Urine Glucose (UA) (test code = Negative Negative * 62330-6) [facility] HealthKetones [Mass/volume] in Urine by Automated test [id number] 11:52:00 Test Item Value Reference Range Interpretation Comments Urine Ketones (test code = 52659-1) 10 Negative * [facility] HealthUrine erythrocytes count by automated test strip (number/volume) 2021-01-04 11:52:00 Test Item Value Reference Range Interpretation Comments Urine Occult Blood (test code = 3+ Negative * 31402-4) [facility] HealthUrine nitrite detection by automated test [id number] 11:52:00 Test Item Value Reference Range Interpretation Comments Urine Nitrite (test code = 38680-7) Negative Negative [facility] HealthUrine total bilirubin measurement by automated test strip (mass/volume)2021-01-04 11:52:00 Test Item Value Reference Range Interpretation Comments Urine Bilirubin (test code = Negative Negative 71980-4) [facility] HealthUrine urobilinogen measurement by automated test strip (mass/volume)2021-01-04 11:52:00 Test Item Value Reference Range Interpretation Comments Urine Urobilinogen (test code = Negative 0.0-1.0 76496-3) [facility] HealthUrine leukocytes count by automated test strip (number/volume) 2021-01-04 11:52:00 Test Item Value Reference Range Interpretation Comments Urine Leukocyte Esterase (test code = 75 Negative 32464-3) [facility] HealthUrine sediment erythrocyte count by microscopy (number/high power field)2021-01-04 11:52:00 Test Item Value Reference Range Interpretation Comments Urine RBC (test code = 57450-4) 11-30 0-2 [facility] HealthUrine sediment leukocyte count [...] (test code = None Seen None * 55723-3) [facility] HealthUrine sediment bacteria count by microscopy (number/high power field)2021-01-04 11:52:00 Test Item Value Reference Range Interpretation Comments Urine Bacteria (test code = 5769-5) Few None [facility] HealthUrine sediment casts count by microscopy (number/low power field) 2021-01-04 11:52:00 Test Item Value Reference Range Interpretation Comments Urine Casts (test code = 9842-6) Present None * [facility] HealthYeast detection in urine sediment by light bnzvrwkbfk2546-16-90 11:52:00 Test Item Value Reference Range Interpretation Comments Urine Yeast (test code = 41025-6) None Seen None [facility] HealthService comment 11:52:00 Test Item Value Reference Range Interpretation Comments Urinalysis Comment (test * See_Comment [A utomated message] The code = 8262-8) system which generated this result tra nsmitted reference range : *. The reference range was not used to interpr et this result as normal/abnormal . [facility] comment 11:52:00 Test Item Value Reference Range Interpretation Comments Urine Culture Indicated (test code To follow = 8264-4) [facility]ICHOL[facility] HealthUrinalysis specimen collection [id number] 11:52:00 Test Item Value Reference Range Interpretation Comments Urine Source (test code = 23551-0) [facility] Color of Urine by Iczy1769-79-27 11:52:00 Test Item Value Reference Range Interpretation Comments Urine Color (test code = 33978-3) Yellow Urine clarity ecmygualacftk5997-71-51 11:52:00 Test Item Value Reference Range Interpretation Comments Urine Appearance (test code = Light Turbid 72257-1) Urine pH measurement by automated test joxwd3528-05-84 11:52:00 Test Item Value Reference Range Interpretation Comments Urine pH (test code = 26866-1) 6.5 Specific gravity of Urine by Automated test vwpvp0653-17-31 11:52:00 Test Item Value Reference Range Interpretation Comments Urine Specific [place] (test code = 1.020 98128-2) Urine protein measurement by automated test strip (mass/volume)2021-01-04 11:52:00 Test Item Value Reference Range Interpretation Comments Urine Protein (test code = 78530-1) 30 Urine glucose measurement by automated test strip (mass/volume)2021-01-04 11:52:00 Test Item Value Reference Range Interpretation Comments Urine Glucose (UA) (test code = Negative 86377-1) Ketones [Mass/volume] in Urine by Automated test ggpdp8506-55-44 11:52:00 Test Item Value Reference Range Interpretation Comments Urine Ketones (test code = 10564-4) 10 Urine erythrocytes count by automated test strip (number/volume)2021-01-04 11:52:00 Test Item Value Reference Range Interpretation Comments Urine Occult Blood (test code = 3+ 27518-4) Urine nitrite detection by automated test kqyrw8740-40-68 11:52:00 Test Item Value Reference Range Interpretation Comments Urine Nitrite (test code = 44180-2) Negative Urine total bilirubin measurement by automated test strip (mass/volume) 2021-01-04 11:52:00 Test Item Value Reference Range Interpretation Comments Urine Bilirubin (test code = Negative 02292-4) Urine urobilinogen measurement by automated test strip (mass/volume)2021-01-04 11:52:00 Test Item Value Reference Range Interpretation Comments Urine Urobilinogen (test code = Negative 34211-8) Urine leukocytes count by automated test strip (number/volume)2021-01-04 11:52:00 Test Item Value Reference Range Interpretation Comments Urine Leukocyte Esterase (test code = 75 05415-7) Urine sediment erythrocyte count by microscopy (number/high power field) 2021-01-04 11:52:00 Test Item Value Reference Range Interpretation Comments Urine RBC (test code = 96777-8) 11-30 Urine sediment leukocyte count by microscopy [...] Urine Crystals (test code = None Seen 55391-8) Urine sediment bacteria count by microscopy (number/high power field)2021-01-04 11:52:00 Test Item Value Reference Range Interpretation Comments Urine Bacteria (test code = 5769-5) Few Urine sediment casts count by microscopy (number/low power field)2021-01-04 11:52:00 Test Item Value Reference Range Interpretation Comments Urine Casts (test code = 9842-6) Present Yeast detection in urine sediment by light feopfkpghc6543-37-69 11:52:00 Test Item Value Reference Range Interpretation Comments Urine Yeast (test code = 24233-2) None Seen Service comment 11:52:00 Test Item Value Reference Range Interpretation Comments Urinalysis Comment (test code = 8262-8) * Service comment 11:52:00 Test Item Value Reference Range Interpretation Comments Urine Culture Indicated (test code To follow = 8264-4) Vaginal fluid fibronectin lyacmudsb3527-33-00 12:00:00 Test Item Value Reference Range Interpretation Comments Fibronectin (test Negative See_Comment [Au tomated message] code = 23603-6) The system [employer] generated this result transmitted ref erence range: *. The reference range was not used to int erpret this result as normal/abnormal . [facility] HealthVaginal fluid fibronectin ozoduanjr9039-96-14 12:00:00 Test Item Value Reference Range Interpretation Comments Fibronectin (test Negative See_Comment [Au tomated message] code = 65050-4) The system [employer] generated this result transmitted ref erence range: *. The reference range was not used to int erpret this result as normal/abnormal . [facility] HealthVaginal fluid fibronectin icxmwajbr3927-65-89 12:00:00 Test Item Value Reference Range Interpretation Comments Fibronectin (test code = Negative 10592-7) Vaginal fluid fibronectin kfwgtngox9867-02-37 12:00:00 Test Item Value Reference Range Interpretation Comments Fibronectin (test code = Negative 53505-5) Specimen source [id number] 11:00:00 Test Item Value Reference Range Interpretation Comments SARS CoV-2 Rapid Source (test code Nasal swab = 24246-5) NICHOLAS De AndaSARS-CoV+SARS-CoV-2(COVID-19)Ag[Presence]2020-12-26 11:00:00 Test Item Value Reference Range Interpretation Comments SARS-CoV-2 Antigen (Rapid) (test Negative Negative code = 10160-1) [facility] 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 kvaiuuo7706-89-81 11:00:00 Test Item Value Reference Range Interpretation Comments N/A (test code = 05723-5) No [facility] HealthPatient has symptoms for condition of ffsxusok8253-32-47 11:00:00 Test Item Value Reference Range Interpretation Comments N/A (test code = 98120-7) No [facility] HealthPt [facility] centerkowp[facility]18-49-96 11:00:00 Test Item Value Reference Range Interpretation Comments N/A (test code = 78972-9) No NICHOLAS HealthPregnancy aclvoo5416-43-28 11:00:00 Test Item Value Reference Range Interpretation Comments N/A (test code = 32435-3) [facility] HealthPatient resides in congregate care ubjhklh9307-73-19 11:00:00 Test Item Value Reference Range Interpretation Comments N/A (test code = 58375-1) No NICHOLAS HealthSpecimen source [id number] 11:00:00 Test Item Value Reference Range Interpretation Comments SARS CoV-2 Rapid Source (test code Nasal swab = 55037-5) NICHOLAS De AndaSARS-CoV+SARS-CoV-2(COVID-19)Ag[Presence]2020-12-26 11:00:00 Test Item Value Reference Range Interpretation Comments SARS-CoV-2 Antigen (Rapid) (test Negative Negative code = 66149-5) N[facility] 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 gqhzgmb1033-80-29 11:00:00 Test Item Value Reference Range Interpretation Comments N/A (test code = 44936-2) No [facility] HealthPatient has symptoms for condition of wbnfbflp4927-22-23 11:00:00 Test Item Value Reference Range Interpretation Comments N/A (test code = 86050-3) No [facility] HealthPt [facility] centerufaz9034-69-46 11:00:00 Test Item Value Reference Range Interpretation Comments N/A (test code = 49962-2) No [facility] HealthPregnancy iktfyb8652-13-94 11:00:00 Test Item Value Reference Range Interpretation Comments N/A (test code = 57084-1) [facility] HealthPatient resides in congregate care qokmdwg9676-17-82 11:00:00 Test Item Value Reference Range Interpretation Comments N/A (test code = 88369-9) No [facility] HealthSpecimen source [id number] 11:00:00 Test Item Value Reference Range Interpretation Comments SARS CoV-2 Rapid Source (test code Nasal swab = 10307-8) SARS-CoV+SARS-CoV-2(COVID-19)Ag[Presence]2020-12-26 11:00:00 Test Item Value Reference Range Interpretation Comments SARS-CoV-2 Antigen (Rapid) (test Negative code = 98693-3) 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 gzmqrun3416-94-45 11:00:00 Test Item Value Reference Range Interpretation Comments N/A (test code = 14685-5) No Patient has symptoms for condition of wjilfvzg7518-07-82 11:00:00 Test Item Value Reference Range Interpretation Comments N/A (test code = 58033-2) No Pt hospitalized bc iyvt4458-68-58 11:00:00 Test Item Value Reference Range Interpretation Comments N/A (test code = 63565-2) No [id number] 11:00:00 Test Item Value Reference Range Interpretation Comments N/A (test code = 13438-6) Patient resides in congregate care gfkpcvs9453-55-21 11:00:00 Test Item Value Reference Range Interpretation Comments N/A (test code = 87526-6) No Specimen source [id number] 11:00:00 Test Item Value Reference Range Interpretation Comments SARS CoV-2 Rapid Source (test code Nasal swab = 01693-6) SARS-CoV+SARS-CoV-2(COVID-19)Ag[Presence]2020-12-26 11:00:00 Test Item Value Reference Range Interpretation Comments SARS-CoV-2 Antigen (Rapid) (test Negative code = 12623-6) 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 jjbjokh2810-27-21 11:00:00 Test Item Value Reference Range Interpretation Comments N/A (test code = 88979-9) No Patient has symptoms for condition of bfqjmlhf1299-05-35 11:00:00 Test Item Value Reference Range Interpretation Comments N/A (test code = 67262-1) No Pt hospitalized bc fvnr4032-95-75 11:00:00 Test Item Value Reference Range Interpretation Comments N/A (test code = 02612-1) No [id number] 11:00:00 Test Item Value Reference Range Interpretation Comments N/A (test code = 08630-2) Patient resides in congregate care zzuilpt7271-55-79 11:00:00 Test Item Value Reference Range Interpretation Comments N/A (test code = 55476-4) No Urine urobilinogen measurement by automated test strip (mass/volume)2020-12-26 10:50:00 Test Item Value Reference Range Interpretation Comments Urine Urobilinogen (test code = Negative 0.0-1.0 16819-5) [facility] HealthUrine leukocytes count by automated test strip (number/volume) 2020-12-26 10:50:00 Test Item Value Reference Range Interpretation Comments Urine Leukocyte Esterase (test code = 25 Negative 83076-2) [facility] HealthUrine sediment erythrocyte count by microscopy (number/high power field)2020-12-26 10:50:00 Test Item Value Reference Range Interpretation Comments Urine RBC (test code = 30204-8) 0-2 0-2 [facility] HealthUrine sediment leukocyte count [...] (test code = None Seen None * 96058-6) [facility] HealthUrine sediment bacteria count by microscopy [...] Comments Urine Hyaline Casts (test code = 20 0-1 5796-8) [facility] HealthYeast detection in urine sediment by light otcyfqcbth9026-54-18 10:50:00 Test Item Value Reference Range Interpretation Comments Urine Yeast (test code = 80218-2) None Seen None [facility] comment 10:50:00 [...] Casts (test code = 02-16 0-1 5796-8) NICHOLAS HealthUrinalysis specimen collection kjxzsu8985-94-57 10:50:00 Test Item Value Reference Range Interpretation Comments Urine Source (test code = 72950-3) [facility] CenterColor of Urine by Hiyn9391-42-75 10:50:00 Test Item Value Reference Range Interpretation Comments Urine Color (test code = 17129-2) Yellow Yel-Melissa * [facility] HealthUrine clarity nwfgmsbghedlr5314-46-28 10:50:00 Test Item Value Reference Range Interpretation Comments Urine Appearance (test code = 10970-6) Clear Clear * [facility] HealthUrine pH measurement by automated test exvjz8023-95-60 10:50:00 Test Item Value Reference Range Interpretation Comments Urine pH (test code = 06815-8) 6.0 5.0-8.0 [facility] HealthSpecific gravity of Urine by Automated test xlheo4312-73-23 10:50:00 Test Item Value Reference Range Interpretation Comments Urine Specific [place] (test code = 1.029 1.005-1.030 82359-8) [facility] HealthUrine protein measurement by automated test strip (mass/volume) 2020-12-26 10:50:00 Test Item Value Reference Range Interpretation Comments Urine Protein (test code = 36109-3) 10 Negative * [facility] HealthUrine glucose measurement by automated test strip (mass/volume) 2020-12-26 10:50:00 Test Item Value Reference Range Interpretation Comments Urine Glucose (UA) (test code = Negative Negative * 96973-8) [facility] HealthKetones [Mass/volume] in Urine by Automated test peyny2219-06-11 10:50:00 Test Item Value Reference Range Interpretation Comments Urine Ketones (test code = 12609-2) Negative Negative * [facility] HealthUrine erythrocytes count by automated test strip (number/volume) 2020-12-26 10:50:00 Test Item Value Reference Range Interpretation Comments Urine Occult Blood (test code = Negative Negative * 69813-9) [facility] HealthUrine nitrite detection by automated test qbtyj6383-78-63 10:50:00 Test Item Value Reference Range Interpretation Comments Urine Nitrite (test code = 78592-7) Negative Negative [facility] HealthUrine total bilirubin measurement by automated test strip (mass/volume)2020-12-26 10:50:00 Test Item Value Reference Range Interpretation Comments Urine Bilirubin (test code = Negative Negative 92016-1) [facility] HealthUrinalysis specimen collection zeufiq2077-75-61 10:50:00 Test Item Value Reference Range Interpretation Comments Urine Source (test code = 00722-1) URINE Color of Urine by Ycyp9674-04-45 10:50:00 Test Item Value Reference Range Interpretation Comments Urine Color (test code = 44578-0) Yellow Urine clarity epxsavkhoiwqz3154-63-00 10:50:00 Test Item Value Reference Range Interpretation Comments Urine Appearance (test code = 02407-9) Clear Urine pH measurement by automated test jvrmd8867-72-93 10:50:00 Test Item Value Reference Range Interpretation Comments Urine pH (test code = 98820-0) 6.0 Specific gravity of Urine by Automated test koqhb9109-55-08 10:50:00 Test Item Value Reference Range Interpretation Comments Urine Specific [place] (test code = 1.029 00504-6) Urine protein measurement by automated test strip (mass/volume)2020-12-26 10:50:00 Test Item Value Reference Range Interpretation Comments Urine Protein (test code = 55480-7) 10 Urine glucose measurement by automated test strip (mass/volume)2020-12-26 10:50:00 Test Item Value Reference Range Interpretation Comments Urine Glucose (UA) (test code = Negative 49319-4) Ketones [Mass/volume] in Urine by Automated test pksai9657-21-07 10:50:00 Test Item Value Reference Range Interpretation Comments Urine Ketones (test code = 40109-8) Negative Urine erythrocytes count by automated test strip (number/volume)2020-12-26 10:50:00 Test Item Value Reference Range Interpretation Comments Urine Occult Blood (test code = Negative 88871-5) Urine nitrite detection by automated test ojcvv6577-04-20 10:50:00 Test Item Value Reference Range Interpretation Comments Urine Nitrite (test code = 24242-8) Negative Urine total bilirubin measurement by automated test strip (mass/volume) 2020-12-26 10:50:00 Test Item Value Reference Range Interpretation Comments Urine Bilirubin (test code = Negative 60421-4) Urine urobilinogen measurement by automated test strip (mass/volume)2020-12-26 10:50:00 Test Item Value Reference Range Interpretation Comments Urine Urobilinogen (test code = Negative 75905-8) Urine leukocytes count by automated test strip (number/volume)2020-12-26 10:50:00 Test Item Value Reference Range Interpretation Comments Urine Leukocyte Esterase (test code = 25 55438-2) Urine sediment erythrocyte count by microscopy (number/high power field) 2020-12-26 10:50:00 Test Item Value Reference Range Interpretation Comments Urine RBC (test code = 56825-5) 0-2 Urine sediment leukocyte count by microscopy [...] Urine Crystals (test code = None Seen 81920-5) Urine sediment bacteria count by microscopy (number/high power field)2020-12-26 10:50:00 Test Item Value Reference Range Interpretation Comments Urine Bacteria (test code = 5769-5) Few Urine sediment casts count by microscopy (number/low power field)2020-12-26 10:50:00 Test Item Value Reference Range Interpretation Comments Urine Casts (test code = 9842-6) Present Urine sediment hyaline cast count by microscopy (number/low power field) 2020-12-26 10:50:00 Test Item Value Reference Range Interpretation Comments Urine Hyaline Casts (test code = 02-16 5796-8) Yeast detection in urine sediment by light mbrnwjdbxq4466-28-41 10:50:00 Test Item Value Reference Range Interpretation Comments Urine Yeast (test code = 18972-1) None Seen Service comment 10:50:00 Test Item [...] Hyaline Casts (test code = 02-16 5796-8) Ketones [Mass/volume] in Urine by Automated test eplsl7994-67-44 14:30:00 Test Item Value Reference Range Interpretation Comments Urine Ketones (test code = 44250-3) Negative Negative * [facility] HealthUrine erythrocytes count by automated test strip (number/volume) 2020-09-22 14:30:00 Test Item Value Reference Range Interpretation Comments Urine Occult Blood (test code = Negative Negative * 05861-7) [facility] HealthUrine nitrite detection by automated test jqjdo8298-02-61 14:30:00 Test Item Value Reference Range Interpretation Comments Urine Nitrite (test code = 18275-4) Negative Negative [facility] HealthUrine total bilirubin measurement by automated test strip (mass/volume)2020-09-22 14:30:00 Test Item Value Reference Range Interpretation Comments Urine Bilirubin (test code = Negative Negative 60111-6) [facility] HealthUrine urobilinogen measurement by automated test strip (mass/volume)2020-09-22 14:30:00 Test Item Value Reference Range Interpretation Comments Urine Urobilinogen (test code = Negative 0.0-1.0 20389-3) [facility] HealthUrine leukocytes count by automated test strip (number/volume) 2020-09-22 14:30:00 Test Item Value Reference Range Interpretation Comments Urine Leukocyte Esterase (test code = 25 Negative 05038-7) [facility] HealthUrine sediment erythrocyte count by microscopy (number/high power field)2020-09-22 14:30:00 Test Item Value Reference Range Interpretation Comments Urine RBC (test code = 06289-4) 0-2 0-2 [facility] HealthUrine sediment leukocyte count [...] (test code = None Seen None * 89599-8) [facility] HealthUrine sediment bacteria count by microscopy [...] HealthYeast detection in urine sediment by light sdtgxxgjce5545-10-80 14:30:00 Test Item Value Reference Range Interpretation Comments Urine Yeast (test code = 88883-6) None Seen None [facility] comment 14:30:00 Test Item Value Reference Range Interpretation Comments Urinalysis Comment (test * See_Comment [A utomated message] The code = 8262-8) system which generated this result tra nsmitted reference range : *. The reference range was not used to interpr et this result as normal/abnormal . [facility] InnovidUrinalysis specimen collection xhtwbs1676-91-74 14:30:00 Test Item Value Reference Range Interpretation Comments Urine Source (test code = 71252-9) URINE [facility] HealthColor of Urine by Oboi1318-50-52 14:30:00 Test Item Value Reference Range Interpretation Comments Urine Color (test code = 44438-9) Lt Yellow Yel-Melissa * [facility] HealthUrine clarity cohmhseztufyx3937-69-85 14:30:00 Test Item Value Reference Range Interpretation Comments Urine Appearance (test code = 90678-1) Clear Clear * [facility] HealthUrine pH measurement by automated test wponj6421-55-59 14:30:00 Test Item Value Reference Range Interpretation Comments Urine pH (test code = 95229-2) 6.0 5.0-8.0 [facility] HealthSpecific gravity of Urine by Automated test pdtal4947-40-31 14:30:00 Test Item Value Reference Range Interpretation Comments Urine Specific [place] (test code = 1.027 1.005-1.030 71376-1) [facility]rine protein measurement by automated test strip (mass/volume) 2020-09-22 14:30:00 Test Item Value Reference Range Interpretation Comments Urine Protein (test code = 68805-0) Negative Negative * [facility]rine glucose measurement by automated test strip (mass/volume) 2020-09-22 14:30:00 Test Item Value Reference Range Interpretation Comments Urine Glucose (UA) (test code = Negative Negative * 71966-5) [facility] InnovidUrinalysis specimen collection [id number] 14:30:00 Test Item Value Reference Range Interpretation Comments Urine Source (test code = 88970-0) URINE Color of Urine by [id number] 14:30:00 Test Item Value Reference Range Interpretation Comments Urine Color (test code = 22951-1) Lt Yellow Urine clarity [id number] 14:30:00 Test Item Value Reference Range Interpretation Comments Urine Appearance (test code = 85826-0) Clear Urine pH measurement by automated test [id number] 14:30:00 Test Item Value Reference Range Interpretation Comments Urine pH (test code = 09847-4) 6.0 Specific gravity of Urine by Automated test [id number] 14:30:00 Test Item Value Reference Range Interpretation Comments Urine Specific [place] (test code = 1.027 43516-2) Urine protein measurement by automated test strip (mass/volume)2020-09-22 14:30:00 Test Item Value Reference Range Interpretation Comments Urine Protein (test code = 81635-3) Negative Urine glucose measurement by automated test strip (mass/volume)2020-09-22 14:30:00 Test Item Value Reference Range Interpretation Comments Urine Glucose (UA) (test code = Negative 91107-4) Ketones [Mass/volume] in Urine by Automated test [id number] 14:30:00 Test Item Value Reference Range Interpretation Comments Urine Ketones (test code = 26514-0) Negative Urine erythrocytes count by automated test strip (number/volume)2020-09-22 14:30:00 Test Item Value Reference Range Interpretation Comments Urine Occult Blood (test code = Negative 93426-8) Urine nitrite detection by automated test [id number] 14:30:00 Test Item Value Reference Range Interpretation Comments Urine Nitrite (test code = 77827-3) Negative Urine total bilirubin measurement by automated test strip (mass/volume) 2020-09-22 14:30:00 Test Item Value Reference Range Interpretation Comments Urine Bilirubin (test code = Negative 87587-7) Urine urobilinogen measurement by automated test strip (mass/volume)2020-09-22 14:30:00 Test Item Value Reference Range Interpretation Comments Urine Urobilinogen (test code = Negative 66876-5) Urine leukocytes count by automated test strip (number/volume)2020-09-22 14:30:00 Test Item Value Reference Range Interpretation Comments Urine Leukocyte Esterase (test code = 25 97820-5) Urine sediment erythrocyte count by microscopy (number/high power field) 2020-09-22 14:30:00 Test Item Value Reference Range Interpretation Comments Urine RBC (test code = 31728-7) 0-2 Urine sediment leukocyte count by microscopy [...] Urine Crystals (test code = None Seen 41045-3) Urine sediment bacteria count by microscopy (number/high [...] Comments Urine Hyaline Casts (test code = 1120 5796-8) Yeast detection in urine sediment by light [id number] 14:30:00 Test Item Value Reference Range Interpretation Comments Urine Yeast (test code = 76003-0) None Seen Service comment 14:30:00 Test Item Value Reference Range Interpretation Comments Urinalysis Comment (test code = 8262-8) * Venous whole blood sodium measurement (moles/volume)2020-09-06 16:03:00 Test Item Value Reference Range Interpretation Comments Bedside Sodium (test code = 36185-8) 139 136-145 [facility]ous whole blood potassium measurement (moles/volume)2020-09-06 16:03:00 Test Item Value Reference Range Interpretation Comments Bedside Potassium (test code = 69700-2) 3.6 3.5-5.1 [facility] HealthVenous whole blood chloride measurement (moles/volume)2020-09-06 16:03:00 Test Item Value Reference Range Interpretation Comments Bedside Chloride (test code = 07626-2) 100 100-112 [facility] Health[facility]ous whole blood total carbon dioxide measurement (moles/volume)2020-09-06 16:03:00 Test Item Value Reference Range Interpretation Comments Bedside Total CO2 (test code = 2026-) 25.0 24.0-33.0 [facility] Health[facility]ous whole blood urea nitrogen (BUN) measurement (mass/volume) 2020-09-06 16:03:00 Test Item Value Reference Range Interpretation Comments Bedside Blood Urea Nitrogen (test code 9 -20 = 36034-9) [facility]Blood creatinine measurement (mass/volume)2020-09-06 16:03:00 Test Item Value Reference Range Interpretation Comments Bedside Creatinine (test code = 0.5 0.7-1.3 55170-4) [facility] HealthVenous whole blood glucose measurement (mass/volume)2020-09-06 16:03:00 Test Item Value Reference Range Interpretation Comments Bedside Glucose (test code = 36100-6) 82 60-100 [facility] calcium measurement (moles/volume)2020-09-06 16:03:00 Test Item Value Reference Range Interpretation Comments Bedside Whole Blood Ionized Calcium 1.22 1.12-1.32 (test code = 1993-3) [facility] HealthBlood anion [id number] 16:03:00 Test Item Value Reference Range Interpretation Comments Bedside Anion Gap (test code = 80337-4) 19 8-18 [facility] HealthGFR estimate [id number] 16:03:00 Test Item Value Reference Range Interpretation Comments Estimat Glomerular Filtration Rate 163 90-142 (test code = 042023286) [facility]ous blood hemoglobin measurement (mass/volume)2020-09-06 16:03:00 Test Item Value Reference Range Interpretation Comments Bedside Hemoglobin (test code = 13.6 12.0-15.2 02253-4) [facility]ous blood hematocrit (volume fraction)2020-09-06 16:03:00 Test Item Value Reference Range Interpretation Comments Bedside Hematocrit (test code = 40.0 35.0-45.0 11132-2) [facility] whole blood sodium measurement (moles/volume)2020-09-06 16:03:00 Test Item Value Reference Range Interpretation Comments Bedside Sodium (test code = 26319-0) 139 136-145 [facility] whole blood potassium measurement (moles/volume)2020-09-06 16:03:00 Test Item Value Reference Range Interpretation Comments Bedside Potassium (test code = 67492-0) 3.6 3.5-5.1 [facility] whole blood chloride measurement (moles/volume)2020-09-06 16:03:00 Test Item Value Reference Range Interpretation Comments Bedside Chloride (test code = 26799-0) 100 100-112 [facility]ous whole blood total carbon dioxide measurement (moles/volume)2020-09-06 16:03:00 Test Item Value Reference Range Interpretation Comments Bedside Total CO2 (test code = 2026-) 25.0 24.0-33.0 [facility] whole blood urea nitrogen (BUN) measurement (mass/volume) 2020-09-06 16:03:00 Test Item Value Reference Range Interpretation Comments Bedside Blood Urea Nitrogen (test code 9 20 = 69589-9) [facility] creatinine measurement (mass/volume)2020-09-06 16:03:00 Test Item Value Reference Range Interpretation Comments Bedside Creatinine (test code = 0.5 0.7-1.3 96655-0) [facility] whole blood glucose measurement (mass/volume)2020-09-06 16:03:00 Test Item Value Reference Range Interpretation Comments Bedside Glucose (test code = 43114-7) 82 60-100 [facility] ionized calcium measurement (moles/volume)2020-09-06 16:03:00 Test Item Value Reference Range Interpretation Comments Bedside Whole Blood Ionized Calcium 1.22 1.12-1.32 (test code = 1994-3) [facility] HealthBlood anion [id number] 16:03:00 Test Item Value Reference Range Interpretation Comments Bedside Anion Gap (test code = 52585-3) 19 8-18 [facility] HealthGFR estimate [id number] 16:03:00 Test Item Value Reference Range Interpretation Comments Estimat Glomerular Filtration Rate 163 90-142 (test code = 630400848) [facility]ous blood hemoglobin measurement (mass/volume)2020-09-06 16:03:00 Test Item Value Reference Range Interpretation Comments Bedside Hemoglobin (test code = 13.6 12.0-15.2 92362-6) [facility] hematocrit (volume fraction)2020-09-06 16:03:00 Test Item Value Reference Range Interpretation Comments Bedside Hematocrit (test code = 40.0 35.0-45.0 37064-2) [facility] sodium measurement (moles/volume)2020-09-06 16:03:00 Test Item Value Reference Range Interpretation Comments Bedside Sodium (test code = 47532-5) 139 Venous whole blood potassium measurement (moles/volume)2020-09-06 16:03:00 Test Item Value Reference Range Interpretation Comments Bedside Potassium (test code = 55944-0) 3.6 Venous whole blood chloride measurement (moles/volume)2020-09-06 16:03:00 Test Item Value Reference Range Interpretation Comments Bedside Chloride (test code = 15383-3) 100 Venous whole blood total carbon dioxide measurement (moles/volume)2020-09-06 16:03:00 Test Item Value Reference Range Interpretation Comments Bedside Total CO2 (test code = 7-1) 25.0 Venous whole blood urea nitrogen (BUN) measurement (mass/volume)2020-09-06 16:03:00 Test Item Value Reference Range Interpretation Comments Bedside Blood Urea Nitrogen (test code 9 = 03263-6) Blood creatinine measurement (mass/volume)2020-09-06 16:03:00 Test Item Value Reference Range Interpretation Comments Bedside Creatinine (test code = 0.5 22762-4) Venous whole blood glucose measurement (mass/volume)2020-09-06 16:03:00 Test Item Value Reference Range Interpretation Comments Bedside Glucose (test code = 27381-7) 82 Whole blood ionized calcium measurement (moles/volume)2020-09-06 16:03:00 Test Item Value Reference Range Interpretation Comments Bedside Whole Blood Ionized Calcium 1.22 (test code = 1994-3) Blood anion [id number] 16:03:00 Test Item Value Reference Range Interpretation Comments Bedside Anion Gap (test code = 90592-7) 19 GFR estimate [id number] 16:03:00 Test Item Value Reference Range Interpretation Comments Estimat Glomerular Filtration Rate 163 (test code = 408225421) Venous blood hemoglobin measurement (mass/volume)2020-09-06 16:03:00 Test Item Value Reference Range Interpretation Comments Bedside Hemoglobin (test code = 13.6 11025-7) Venous blood hematocrit (volume fraction)2020-09-06 16:03:00 Test Item Value Reference Range Interpretation Comments Bedside Hematocrit (test code = 40.0 86633-6) Venous whole blood sodium measurement (moles/volume)2020-09-06 16:03:00 Test Item Value Reference Range Interpretation Comments Bedside Sodium (test code = 18943-8) 139 Venous whole blood potassium measurement (moles/volume)2020-09-06 16:03:00 Test Item Value Reference Range Interpretation Comments Bedside Potassium (test code = 88769-1) 3.6 Venous whole blood chloride measurement (moles/volume)2020-09-06 16:03:00 Test Item Value Reference Range Interpretation Comments Bedside Chloride (test code = 97645-5) 100 Venous whole blood total carbon dioxide measurement (moles/volume)2020-09-06 16:03:00 Test Item Value Reference Range Interpretation Comments Bedside Total CO2 (test code = 2027-1) 25.0 Venous whole blood urea nitrogen (BUN) measurement (mass/volume)2020-09-06 16:03:00 Test Item Value Reference Range Interpretation Comments Bedside Blood Urea Nitrogen (test code 9 = 75701-0) Blood creatinine measurement (mass/volume)2020-09-06 16:03:00 Test Item Value Reference Range Interpretation Comments Bedside Creatinine (test code = 0.5 69916-1) Venous whole blood glucose measurement (mass/volume)2020-09-06 16:03:00 Test Item Value Reference Range Interpretation Comments Bedside Glucose (test code = 18787-0) 82 Whole blood ionized calcium measurement (moles/volume)2020-09-06 16:03:00 Test Item Value Reference Range Interpretation Comments Bedside Whole Blood Ionized Calcium 1.22 (test code = 1994-3) Blood anion [id number] 16:03:00 Test Item Value Reference Range Interpretation Comments Bedside Anion Gap (test code = 13173-9) 19 GFR estimate [id number] 16:03:00 Test Item Value Reference Range Interpretation Comments Estimat Glomerular Filtration Rate 163 (test code = 403856162) Venous blood hemoglobin measurement (mass/volume)2020-09-06 16:03:00 Test Item Value Reference Range Interpretation Comments Bedside Hemoglobin (test code = 13.6 02830-0) Venous blood hematocrit (volume fraction)2020-09-06 16:03:00 Test Item Value Reference Range Interpretation Comments Bedside Hematocrit (test code = 40.0 41882-6) Serum or plasma beta choriogonadotropin measurement (units/volume)2020-09-06 16:00:00 Test Item Value Reference Range Interpretation Comments Human Chorionic Gonadotropin, Quant 87024.9 See Comment (test code = 80018-7) [facility] Health[facility]um or plasma beta choriogonadotropin measurement (units/volume)2020-09-06 16:00:00 Test Item Value Reference Range Interpretation Comments Human Chorionic Gonadotropin, Quant 76902.9 See Comment (test code = 56524-3) [facility] HealthSerum or plasma beta choriogonadotropin measurement (units/volume)2020-09-06 16:00:00 Test Item Value Reference Range Interpretation Comments Human Chorionic Gonadotropin, Quant 22671.9 (test code = 92624-4) Serum or plasma beta choriogonadotropin measurement (units/volume)2020-09-06 16:00:00 Test Item Value Reference Range Interpretation Comments Human Chorionic Gonadotropin, Quant 36276.9 (test code = 18486-3) Microscopic examination of [id number] 15:50:00 Test Item Value Reference Range Interpretation Comments Microscopic Urinalysis (T) (test code = ----- 43134-3) [facility] comment [id number] 15:50:00 Test Item Value Reference Range Interpretation Comments Urine Culture Indicated (test code To follow = 8264-4) [facility] specimen collection [id number] 15:50:00 Test Item Value Reference Range Interpretation Comments Urine Source (test code = 21883-7) URINE [facility] HealthUrine color [id number] 15:50:00 Test Item Value Reference Range Interpretation Comments Urine Color (test code = 5778-6) Yellow Yel-Melissa * [facility] HealthUrine clarity [id number] 15:50:00 Test Item Value Reference Range Interpretation Comments Urine Appearance (test code = 03811-4) Turbid Clear * [facility] HealthUrine pH measurement by automated test [id number] 15:50:00 Test Item Value Reference Range Interpretation Comments Urine pH (test code = 73880-5) 5.0 5.0-8.0 [facility] HealthSpecific gravity of Urine by Automated test [id number] 15:50:00 Test Item Value Reference Range Interpretation Comments Urine Specific [place] (test code = 1.025 1.005-1.030 75198-8) [facility]rine protein measurement by automated test strip (mass/volume) 2020-09-06 15:50:00 Test Item Value Reference Range Interpretation Comments Urine Protein (test code = 16235-2) Negative Negative * [facility]rine glucose measurement by automated test strip (mass/volume) 2020-09-06 15:50:00 Test Item Value Reference Range Interpretation Comments Urine Glucose (UA) (test code = Negative Negative * 35361-2) [facility] HealthKetones [Mass/volume] in Urine by Automated test [id number] 15:50:00 Test Item Value Reference Range Interpretation Comments Urine Ketones (test code = 94701-8) 150 Negative * [facility]rine erythrocytes count by automated test strip (number/volume) 2020-09-06 15:50:00 Test Item Value Reference Range Interpretation Comments Urine Occult Blood (test code = 25 Negative * 76972-7) [facility] HealthUrine nitrite detection by automated test [id number] 15:50:00 Test Item Value Reference Range Interpretation Comments Urine Nitrite (test code = 26680-6) Negative Negative [facility]rine total bilirubin measurement by automated test strip (mass/volume)2020-09-06 15:50:00 Test Item Value Reference Range Interpretation Comments Urine Bilirubin (test code = Negative Negative 25326-1) [facility] HealthUrine urobilinogen measurement by automated test strip (mass/volume)2020-09-06 15:50:00 Test Item Value Reference Range Interpretation Comments Urine Urobilinogen (test code = Negative 0.0-1.0 65735-5) [facility]rine leukocytes count by automated test strip (number/volume) 2020-09-06 15:50:00 Test Item Value Reference Range Interpretation Comments Urine Leukocyte Esterase (test code = 500 Negative 94956-3) [facility] HealthMicroscopic examination of [id number] 15:50:00 Test Item Value Reference Range Interpretation Comments Microscopic Urinalysis (T) (test code = ----- 62212-6) [facility] HealthUrine sediment erythrocyte count by microscopy (number/high power field)2020-09-06 15:50:00 Test Item Value Reference Range Interpretation Comments Urine RBC (test code = 10395-0) 0-2 0-2 [facility] HealthUrine sediment leukocyte count [...] (test code = None Seen None * 26197-2) [facility] HealthUrine sediment bacteria count by microscopy (number/high power field)2020-09-06 15:50:00 Test Item Value Reference Range Interpretation Comments Urine Bacteria (test code = 5769-5) Frequent None [facility] HealthUrine sediment casts count by microscopy (number/low power field) 2020-09-06 15:50:00 Test Item Value Reference Range Interpretation Comments Urine Casts (test code = 9842-6) None Seen None * [facility] HealthYeast detection in urine sediment by light [id number] 15:50:00 Test Item Value Reference Range Interpretation Comments Urine Yeast (test code = 70952-9) None Seen None [facility] comment 15:50:00 [...] code To follow = 8264-4) [facility] HealthUrine clarity [id number] 15:50:00 Test Item Value Reference Range Interpretation Comments Urine Appearance (test code = 15369-8) Turbid Urine pH measurement by automated test [id number] 15:50:00 Test Item Value Reference Range Interpretation Comments Urine pH (test code = 75501-0) 5.0 Specific gravity of Urine by Automated test [id number] 15:50:00 Test Item Value Reference Range Interpretation Comments Urine Specific [place] (test code = 1.025 31145-4) Urine protein measurement by automated test strip (mass/volume)2020-09-06 15:50:00 Test Item Value Reference Range Interpretation Comments Urine Protein (test code = 83695-6) Negative Urine glucose measurement by automated test strip (mass/volume)2020-09-06 15:50:00 Test Item Value Reference Range Interpretation Comments Urine Glucose (UA) (test code = Negative 18495-9) Ketones [Mass/volume] in Urine by Automated test [id number] 15:50:00 Test Item Value Reference Range Interpretation Comments Urine Ketones (test code = 14718-9) 150 Urine erythrocytes count by automated test strip (number/volume)2020-09-06 15:50:00 Test Item Value Reference Range Interpretation Comments Urine Occult Blood (test code = 25 81437-4) Urine nitrite detection by automated test [id number] 15:50:00 Test Item Value Reference Range Interpretation Comments Urine Nitrite (test code = 65765-9) Negative Urine total bilirubin measurement by automated test strip (mass/volume) 2020-09-06 15:50:00 Test Item Value Reference Range Interpretation Comments Urine Bilirubin (test code = Negative 90508-7) Urine urobilinogen measurement by automated test strip (mass/volume)2020-09-06 15:50:00 Test Item Value Reference Range Interpretation Comments Urine Urobilinogen (test code = Negative 44263-4) Urine leukocytes count by automated test strip (number/volume)2020-09-06 15:50:00 Test Item Value Reference Range Interpretation Comments Urine Leukocyte Esterase (test code = 500 32202-5) Microscopic examination of [id number] 15:50:00 Test Item Value Reference Range Interpretation Comments Microscopic Urinalysis (T) (test code = ----- 27178-6) Urine sediment erythrocyte count by microscopy (number/high power field) 2020-09-06 15:50:00 Test Item Value Reference Range Interpretation Comments Urine RBC (test code = 22076-5) 0-2 Urine sediment leukocyte count by microscopy [...] Urine Crystals (test code = None Seen 22240-1) Urine sediment bacteria count by microscopy (number/high power field)2020-09-06 15:50:00 Test Item Value Reference Range Interpretation Comments Urine Bacteria (test code = 5769-5) Frequent Urine sediment casts count by microscopy (number/low power field)2020-09-06 15:50:00 Test Item Value Reference Range Interpretation Comments Urine Casts (test code = 9842-6) None Seen Yeast detection in urine sediment by light [id number] 15:50:00 Test Item Value Reference Range Interpretation Comments Urine Yeast (test code = 71577-9) None Seen Service comment 15:50:00 Test Item Value Reference Range Interpretation Comments Urinalysis Comment (test code = 8262-8) * Service comment 15:50:00 Test Item Value Reference Range Interpretation Comments Urine Culture Indicated (test code To follow = 8264-4) Microscopic examination of [id number] 15:50:00 Test Item Value Reference Range Interpretation Comments Microscopic Urinalysis (T) (test code = ----- 99980-3) Urinalysis specimen collection [id number] 15:50:00 Test Item Value Reference Range Interpretation Comments Urine Source (test code = 32069-4) URINE Service comment 15:50:00 Test Item Value Reference Range Interpretation Comments Urine Culture Indicated (test code To follow = 8264-4) Urine color [id number] 15:50:00 Test Item Value Reference Range Interpretation Comments Urine Color (test code = 5778-6) Yellow ISTAT CHEM [id number] 17:15:00 Test Item Value Reference Range Interpretation [...] prelimenary and confirmation re sults will follow. [id number] 15:50:00 Test Item Value Reference Range Interpretation Comments BLOOD TYPE (test A Rh Positive Comment for code = TYPE) Female s Rhogam may be indicated for p atient depending baby' s Rh status. [id number] 15:06:00 Test Item Value Reference Range Interpretation [...] = TRACE NONE BACTERIA) US OB <14 [id number] 14:33:00 [facility] : 1995 Sex: F[address] [id number] IMAGING REPORTPatient Name: SAM OLVERADate of Service: [id number]: 24 Sex: F Order #: [id number] Room: ERSDOB: 1995 X-Ray Number: [id number] Record Number: [id number] Hospital Number: [id number] Physician: VINCENT GUILLENOrdering Physician: Ilia GUILLENited OB ultrasound.History: Pelvic pain for one dayTechnique: [...] cm. The amnion is present.The estimated date delivery is 02/09/2021.Right ovary: The right ovary measures 3.9 x 1.6 x 2.8 cm. There is normalcolor Doppler flow in the right ovary. There appears to be a corpus lutealcyst in the right ovary.Left ovary: Theleft measures 3.2 x 1.8 x 2.1 cm. There is normal colorDoppler flow in the left ovary.Impression:There is an intrauterine with a crown-rump length indicative of 8weeks, 4 days. heart tones are present.Electronically Signed By: Carlos Sanchez M.D., 07/04/2020 2:30 PMLegally authenticated by THEO GEIGER JR 2020-07-04 14:30:52CB 2020-07-04 14:25:00 Test Item [...]
[2023-01-19 15:09] LABS: Absolute Lymphocytes (CBC) 2.7 K/uL (0.7-4.9); Hematocrit 36.5 % (36.0-45.0); Lymphocytes % 47.9 % (15.3-44.8); MCV 81.9 fL (80-100); MPV 8.2 fL (7.6-11.3); Platelets 400 thou/uL (152-406); RBC Red Blood Cell Count 4.46 M/uL (3.86-4.86)
[2023-01-19 15:31] LABS: Specific Gravity > 1.030 (1.005-1.030)
[2023-01-19 15:33] LABS: Albumin 4.1 g/dL (3.4-5.0); Bilirubin Direct 0.2 mg/dL (0-0.2); Bilirubin Indirect, Calculated 0.3 mg/dL (0.2-0.8); Bilirubin Total 0.5 mg/dL (0.2-1.0); Magnesium 2.2 mg/dL (1.6-2.4); Potassium 3.5 mEq/L (3.5-5.1); Protein, Total 8.1 g/dL (6.4-8.2); Thyroid Stimulating Hormone 0.353 uIU/mL (0.358-3.740); Troponin High Sensitivity 4.2 pg/mL (<58.9)
--- NOTE | 2023-01-19 15:33 | RAD REPORT ---
EXAM DESCRIPTION: Rashida Single View01/19/2023 3:21 pm CLINICAL HISTORY: sob COMPARISON: none FINDINGS: The lungs appear clear of acute infiltrate. The heart is normal size IMPRESSION: No acute abnormalities displayed
[2023-01-19 15:35] LABS: Specific Gravity > 1.030 (1.005-1.030); Urine Bacteria None Seen /HPF (<20); Urine Bilirubin NEGATIVE (Negative); Urine Blood 2+ (Negative); Urine Clarity Clear (Clear); Urine Color Yellow (Yellow); Urine Glucose NEGATIVE (Negative); Urine Mucus 3+ /HPF (None Seen); Urine Protein 1+ (Negative); Urine RBC <5 /HPF (None Seen); Urine Urobilinogen 1+ (Normal); Urine pH 5.5 (5.0-7.0)
[2023-01-19] MEDS ORDERED: KETOROLAC 30 MG/ML INJ ONE (15:35)
--- NOTE | 2023-01-19 15:44 | EDPHYS ---
Physician Documentation [facility] Name: Edin Hurtado Age: 27 yrs Sex: Female : 1995 Arrival Date: 01/19/2023 Time: 14:35 Bed 10 Private MD: ED Physician Slim Contreras HPI: 01/19 14:48 This 27 yrs old Black Female presents to ER via Ambulatory with complaints of Syncope, jh7 High Blood Pressure, Headache, Shortness Of Breath, Red Eyes. 14:48 The patient has experienced syncope, collapsed. Onset: The symptoms/episode jh7 began/occurred acutely. Associated signs and symptoms: Pertinent positives: headache, palpitations, high blood pressure. 27-year-old female reports syncopal episode at work with palpitations, intermittent shortness of breath, and headache. The patient states that the syncopal episode occurred when she was sitting in a chair and that she did not fall and hit her head. Reports family history of thyroid disease.. Historical: - Allergies: 14:48 No Known Allergies; iw - Home Meds: 14:48 None [Active]; iw - PMHx: 14:48 None; iw - PSHx: 14:48 section; iw - Immunization history:: Adult Immunizations unknown. - Social history:: Smoking status: Patient reports the use of cigarette tobacco products, cigars. ROS: 14:48 Constitutional: Negative for fever, chills, and weight loss, Eyes: Negative for injury, jh7 pain, redness, and discharge, Neck: Negative for injury, pain, and swelling, Abdomen/GI: Negative for abdominal pain, nausea, vomiting, diarrhea, and constipation, Back: Negative for injury and pain, MS/Extremity: Negative for injury and deformity, Skin: Negative for injury, rash, and discoloration, 14:48 Cardiovascular: Positive for palpitations, Negative for chest pain, 14:48 Respiratory: Positive for shortness of breath, Negative for cough, orthopnea, wheezing, 14:48 Neuro: Positive for headache, syncope, Negative for speech changes, weakness, 14:48 All other systems are negative, Exam: 14:48 Constitutional: This is a well developed, well nourished patient who is awake, alert, jh7 and in no acute distress. Head/Face: Normocephalic, atraumatic. Eyes: Pupils equal round and reactive to light, extra-ocular motions intact. Lids and lashes normal. Conjunctiva and sclera are non-icteric and not injected. Cornea within normal limits. Periorbital areas with no swelling, redness, or edema. Neck: Trachea midline, no thyromegaly or masses palpated, and no cervical lymphadenopathy. Supple, full range of motion without nuchal rigidity, or vertebral point tenderness. No Meningismus. Cardiovascular: Regular rate and rhythm with a normal S1 and S2. No gallops, murmurs, or rubs. Normal PMI, no JVD. No pulse deficits. Respiratory: Lungs have equal breath sounds bilaterally, clear to auscultation and percussion. No rales, rhonchi or wheezes noted. No increased work of breathing, no retractions or nasal flaring. Abdomen/GI: Soft, non-tender, with normal bowel sounds. No distension or tympany. No guarding or rebound. No evidence of tenderness throughout. Skin: Warm, dry with normal turgor. Normal color with no rashes, no lesions, and no evidence of cellulitis. MS/ Extremity: Pulses equal, no cyanosis. Neurovascular intact. Full, normal range of motion. Neuro: Awake and alert, GCS 15, oriented to person, place, time, and situation. Cranial nerves II-XII grossly intact. Motor strength 5/5 in all extremities. Sensory grossly intact. Cerebellar exam normal. Normal gait. Vital Signs: 14:44 BP 129 / 86; Pulse 95; Resp 18 S; Temp 98.3(TE); Pulse Ox 97% ; Weight 61.23 kg (R); iw Height 5 ft. 4 in. ; Pain 6/10; 15:45 BP 127 / 81; Pulse 72; Resp 16; Pulse Ox 99% on R/A; hb 14:44 Body Mass Index 23.17 (61.23 kg, 162.56 cm) iw 14:44 Pain Scale: Adult NIH Stroke Scale Scores: 14:48 NIHSS Score: 0 7 Tameka Coma Score: 14:48 Eye Response: spontaneous(4). Motor Response: obeys commands(6). Verbal Response: jh7 oriented(5). Total: 15. MDM: 14:44 Patient medically screened. [facility] 15:40 Differential Diagnosis: cardiac arrhythmia, emotional response, idiopathic syncope, jh7 , seizure, vasovagal episode. Data reviewed: vital signs, nurses notes, lab test result(s), EKG, radiologic studies, plain films. I considered the following discharge prescriptions or medication management in the emergency department Medications were administered in the Emergency Department. See MAR. Independent interpretation of the following test(s) in the Emergency Department EKG: See my EKG interpretation above. Historians other than the Patient: Parent: mom. Counseling: I had a detailed discussion with the patient and/or guardian regarding the historical points, exam findings, and any diagnostic results supporting the discharge/admit diagnosis, to return to the emergency department if symptoms worsen or persist or if there are any questions or concerns that arise at home. Response to treatment: the patient's symptoms have mildly improved after treatment. Special discussion: Advised PCP follow-up for hyperthyroidism. Reviewed all labs and imaging with patient and informed her that her TSH was low. Her her symptoms are also consistent with hyperthyroidism. If she develops any new concerning symptoms, she may return to the ER for further eval.. 01/19 14:52 Order name: Basic Metabolic Panel; Complete Time: 15:[address] [facility] 01/19 14:52 Order name: CBC with Diff; Complete Time: 15:[address] [facility] 01/19 14:52 Order name: D-Dimer; Complete Time: 15:[address] [facility] 01/19 14:52 Order name: LFT's; Complete Time: 15:[address] [facility] 01/19 14:52 Order name: Magnesium; Complete Time: 15:[address] [facility] 01/19 14:52 Order name: Troponin HS; Complete Time: 15:[address] [facility] 01/19 14:52 Order name: Urinalysis W/Microscopic; Complete Time: 15:[address] [facility] 01/19 14:52 Order name: Test, Urine; Complete Time: 15:[address] [facility] 01/19 14:52 Order name: TSH; Complete Time: 15:[address] [facility] 01/19 14:52 Order name: XRAY Chest (1 view); Complete Time: 15:[address] [facility] 01/19 14:52 Order name: EKG; Complete Time: 14:[address] [facility] 01/19 14:52 Order name: Cardiac monitoring; Complete Time: 15:[address] [facility] 01/19 14:52 Order name: EKG - Nurse/Tech; Complete Time: 15:[address] [facility] 01/19 14:52 Order name: IV Saline Lock; Complete Time: 15:[address] [facility] 01/19 14:52 Order name: Labs collected and sent; Complete Time: 15:[address] [facility] 01/19 14:52 Order name: O2 Per Protocol; Complete Time: 15:[address] [facility] 01/19 14:52 Order name: O2 Sat Monitoring; Complete Time: 15:21 EC:13 Rate is 71 beats/min. Rhythm is regular. QRS [place] is Normal. SC interval is normal at [facility] 174 msec. QRS interval is normal at 84 msec. QT interval is normal at 378 msec. No Q waves. T waves are Normal. No ST changes noted. Clinical impression: Normal ECG. Administered Medications: 15:24 Drug: Ketorolac IVP 15 mg IVP once Route: IVP; Site: right antecubital; hb 15:45 Follow up: Response: No adverse reaction hb Disposition: 19:03 Co-signature as Attending Physician, Slim Contreras MD I reviewed the patient's care rn provided by the Advanced Practice Provider and agree with the diagnosis and treatment plan. Disposition Summary: 01/19/23 15:43 Discharge Ordered Notes: Location: Home [facility] Problem: new [facility] Symptoms: are unchanged [facility] Condition: Stable [facility] Diagnosis - Hyperthyroidism [facility] Followup: [facility] - With: Private Physician - When: 2 - 3 days - Reason: Recheck today's complaints Discharge Instructions: - Discharge Summary Sheet [facility] - Hyperthyroidism [facility] Forms: - Work release form hb - Medication Reconciliation Form [facility] - Thank You Letter [facility] - Patient Portal Instructions [facility] - Leadership Thank You Letter [facility] NIH Stroke Scale - NIH Stroke Score Date: 01/19/2023 Time: 14:48 Total Score = 0 10. Dysarthria (speech clarity - read or repeat words) - 0(Normal) 11. Extinction and Inattention (visual/tactile/auditory/spatial/personal) - 0(No abnormality) 1a. Level of Consciousness (LOC) - 0(Alert) 1b. Level of Consciousness (LOC) (Month \T\ Age) - 0(Both) 1c. LOC Commands (Open \T\ Closes Eyes/Grout Machine Operator) - 0(Both) 2. Best Gaze (Lateral Gaze Paresis) - 0(Normal) 3. Visual Field Loss - 0(No visual loss) 4. Facial Palsy - 0(Normal) 5a. Left Arm: Motor (10-second hold) - 0(No drift) 5b. Right Arm: Motor (10-second hold) - 0(No drift) 6a. Left Leg: Motor (5-second hold - always test supine) - 0(No drift) 6b. Right Leg: Motor (5-second hold - always test supine) - 0(No drift) 7. Limb Ataxia (finger/nose \T\ heel/peters - test with eyes open) - 0(Absent) 8. Sensory Loss (pinprick arms/legs/face) - 0(Normal) 9. Best Language: Aphasia (description/naming/reading) - 0(No aphasia) Initials: [facility] Signatures: Dispatcher [employer] Varsha Bose, Slim Anders RN, MD MD rn Baxter, Heather, RN RN hb Hadash, Jennifer, CAMP COORDINATOR CAMP COORDINATOR [facility]
--- NOTE | 2023-01-19 15:44 | ER ---
Nurse's Notes [facility] Name: Edin Hurtado Age: 27 yrs Sex: Female : 1995 Arrival Date: 01/19/2023 Time: 14:35 Bed 10 Private MD: Diagnosis: Hyperthyroidism Presentation: 01/19 14:44 Chief complaint: Patient states: that she stood up from her chair and passed out. Pt iw states that the syncope episode happened while she was at work today. Pt also reports dizziness and light headedness. Pt also reports to have high blood pressure for the last 2 weeks. Coronavirus screen: Vaccine status: Patient reports receiving the 2nd dose of the covid vaccine. Client denies travel out of the [place] in the last 14 days. Ebola Screen: Patient denies travel to an Ebola-affected area in the 21 days before illness onset. No symptoms or risks identified at this time. Initial Sepsis Screen: Does the patient meet any 2 criteria? No. Patient's initial sepsis screen is negative. Does the patient have a suspected source of infection? No. Patient's initial sepsis screen is negative. Risk Assessment: Do you want to hurt yourself or someone else? Patient reports no desire to harm self or others. Onset of symptoms was January 19, 2023. 14:44 Method Of Arrival: Ambulatory iw 14:44 Acuity: DIXON 3 iw Triage Assessment: 14:48 General: Appears in no apparent distress. comfortable, Behavior is calm, cooperative. iw Neuro: No deficits noted. Level of Consciousness is awake, alert, obeys commands, Oriented to person, place, time, situation, Reports dizziness, headache. Historical: - Allergies: 14:48 No Known Allergies; iw - Home Meds: 14:48 None [Active]; iw - PMHx: 14:48 None; iw - PSHx: 14:48 section; iw - Immunization history:: Adult Immunizations unknown. - Social history:: Smoking status: Patient reports the use of cigarette tobacco products, cigars. Screenin:25 [facility] ED Fall Risk Assessment (Adult) Score/Fall Risk Level 0 - 2 = Low Risk hb Oriented to surroundings, Maintained a safe environment, Educated pt \T\ family on fall prevention, incl call for assistance when getting out of bed. Abuse screen: Denies threats or abuse. Denies injuries from another. Nutritional screening: No deficits noted. Tuberculosis screening: No symptoms or risk factors identified. Assessment: 15:25 General: Appears in no apparent distress. Behavior is calm, cooperative. Pain: Pain hb currently is 5 out of 10 on a pain scale. Neuro: Level of Consciousness is awake, alert, obeys commands, Oriented to person, place, time, situation, Reports headache. Cardiovascular: Reports palpitations, shortness of breath, Patient's skin is warm and dry. Rhythm is regular. Respiratory: Respiratory effort is even, unlabored, Respiratory pattern is regular, symmetrical. GI: No signs and/or symptoms were reported involving the gastrointestinal system. : No signs and/or symptoms were reported regarding the genitourinary system. EENT: No signs and/or symptoms were reported regarding the EENT system. Derm: Skin is pink, warm \T\ dry. Musculoskeletal: No signs and/or symptoms reported regarding the musculoskeletal system. Vital Signs: 14:44 BP 129 / 86; Pulse 95; Resp 18 S; Temp 98.3(TE); Pulse Ox 97% ; Weight 61.23 kg (R); iw Height 5 ft. 4 in. ; Pain 6/10; 15:45 BP 127 / 81; Pulse 72; Resp 16; Pulse Ox 99% on R/A; hb 14:44 Body Mass Index 23.17 (61.23 kg, 162.56 cm) iw 14:44 Pain Scale: Adult iw Tameka Coma Score: 14:48 Eye Response: spontaneous(4). Motor Response: obeys commands(6). Verbal Response: jh oriented(5). Total: 15. NIH Stroke Scale Scores: 14:48 NIHSS Score: 0 [facility] ED Course: 14:39 Patient arrived in ED. im 14:44 Luzma Nuno FNP is PHCP. jh7 14:44 Slim Contreras MD is Attending Physician. [facility] 14:48 Triage completed. iw 14:48 Arm band placed on Patient placed in an exam room, on a stretcher. iw 14:54 Beverly Sutherland, RN is Primary Nurse. hb 15:02 Inserted saline lock: 22 gauge in right antecubital area, using aseptic technique. hb Blood collected. 15:23 XRAY Chest (1 view) In Process Unspecified. EDMS 15:25 Patient has correct armband on for positive identification. Provided Education on: hb tests, wait times . 15:55 No provider procedures requiring assistance completed. IV discontinued, intact, hb bleeding controlled, No redness/swelling at site. Administered Medications: 15:24 Drug: Ketorolac IVP 15 mg IVP once Route: IVP; Site: right antecubital; hb 15:45 Follow up: Response: No adverse reaction hb Medication: 15:25 VIS not applicable for this client. hb Outcome: 15:43 Discharge ordered by MD. mason 16:07 Patient left the ED. ej NIH Stroke Scale - NIH Stroke Score Date: 01/19/2023 Time: 14:48 Total Score = 0 10. Dysarthria (speech clarity - read or repeat words) - 0(Normal) 11. Extinction and Inattention (visual/tactile/auditory/spatial/personal) - 0(No abnormality) 1a. Level of Consciousness (LOC) - 0(Alert) 1b. Level of Consciousness (LOC) (Month \T\ Age) - 0(Both) 1c. LOC Commands (Open \T\ Closes Eyes/Technical Professional) - 0(Both) 2. Best Gaze (Lateral Gaze Paresis) - 0(Normal) 3. Visual Field Loss - 0(No visual loss) 4. Facial Palsy - 0(Normal) 5a. Left Arm: Motor (10-second hold) - 0(No drift) 5b. Right Arm: Motor (10-second hold) - 0(No drift) 6a. Left Leg: Motor (5-second hold - always test supine) - 0(No drift) 6b. Right Leg: Motor (5-second hold - always test supine) - 0(No drift) 7. Limb Ataxia (finger/nose \T\ heel/peters - test with eyes open) - 0(Absent) 8. Sensory Loss (pinprick arms/legs/face) - 0(Normal) 9. Best Language: Aphasia (description/naming/reading) - 0(No aphasia) Initials: [facility] Signatures: Dispatcher [employer] EDFe Bui Irene, SANDRA FLORES Beverly Sutherland RN RN Luzma Nuno, DATA TRANSCRIBER DATA TRANSCRIBER [facility] Niesha Queen
--- NOTE | 2023-01-20 11:57 | EKG ---
Test Date: 2023-01-19 Test Time: 15:13:30 Pest Locator: HB MEASUREMENT RESULTS: Intervals: Rate: 71 LA: 174 QRSD: 84 QT: 378 QTc: 410 [place]: P: 71 LA: 174 QRS: 79 T: 71 INTERPRETIVE STATEMENTS: Normal sinus rhythm Normal ECG No previous ECG available for comparison Electronically Signed On 01-20-23 11:54:11 CDT by Tristin Sanders
== END 2023-01-19 16:07 | disposition home or self-care (01) ==
LOC: ER 14:35
DX: E05.90 Thyrotoxicosis, unspecified without thyrotoxic crisis or storm (principal); Z72.0 Tobacco use
CPT/HCPCS: 36415; 71045; 80048; 80076; 81001; 81025; 83735; 84443; 84484; 85025; 85379; 93005; 96374; 99284

== ENCOUNTER 2024-11-23 14:20 | Emergency (ER) | payer BC, OTHER ==
--- OUTSIDE RECORDS SUMMARY | 2024-11-23 14:29 | XMS REPORT | Continuity of Care Document ---
Author Name Unknown Address [address] [place] [address] [facility] Address [address] [place] [address] Care Team Providers Care Jig Filler Name Role Phone Pcp, No Primary Care Physician Jeri CHAVEZ, Analilia Attending Clinician Joe Lewis Attending Clinician UnavailJENNIFER Castellano Attending Clinician Unavailable Steven Narayanan MD Attending Clinician POP ANDERSON Attending Clinician UnavailSTEVEN Sung Attending Clinician Unavailable Doctor Unassigned, [place] Attending Clinician U hiram Mauricio RN, Lachelle Dent Attending Clinician Unava ilable Jennifer Nevarez PA-C Attending Clinician [phone] OMKAR GÓMEZ Attending Clinician UnavailSHAYE Young Attending Clinician Unavailable BELINDA DIALLO - Attending Clinician Unavailab DESTINY Awad Attending Clinician Unavailabl ROSALES Briggs Attending Clinician Unavailable [place] FORTUNE TELLER, Destiny Attending Clinician [phone] Jose BARROW, Brissa Goel Attending Clinician [phone] BRISSA WHITE Attending Clinician Unavailable KAT CASEY Attending Clinician Unavailcatina e Visit, [facility] Nurse Attending Clinician Unava ilable Renzo Valerio RN, Angy Attending Clinician Unavailable MARTIN MICHELLE Attending Clinician Unavailable Margarita HERNANDEZ, Lenard Escalante Attending Clinician [phone] Susan HERNANDEZ, Ronnie Attending Clinician [phone] Avtar FLORES, Noemi Eduardo Attending Clinician Unavaila Colleen Maldonado MD Attending Clinician [phone] Martin Michelle MD Attending Clinician [phone] MARNI BELCHER Attending Clinician Unavaila glenis Prasad RN, Darcy Hernandez Attending Clinician Unavailab BALBINA Nath Attending Clinician Unavailab NOREEN Brownlee Attending Clinician Unavailable 2, [facility] Ultrasound Attending Clinician Unaminh Simental MD, David Jon Attending Clinician [phone] MORELIA CARVALHO Attending Clinician Unava ilable Leon Ramos RN Attending Clinician Unavailab luci [facility] Attending Clinician Unavailable Noreen Florez MD Attending Clinician + [phone] MEDINA IBARRA Attending Clinician Unava ilable VINCENT GUILLEN Attending Clinician UnavailBrandie Caldwell Attending Clinician Unavailable Gretchen Buckley Attending Clinician UnavailLakisha Sanders Attending Clinician Unavailable Lena Fuchs Attending Clinician Unavaila MARTIN Hancock Admitting Clinician Unavailable Physician, No Primary or Family Admitting Clinic teri Unavailable BELINDA DIALLO - Admitting Clinician Unavailab luci Avila MD, Lenard Escalante Admitting Clinician Martin Michelle MD Admitting Clinician VINCENT GUILLEN Admitting Clinician Unavailabl e Payers Payer Name Policy Type Policy Number Effective Date Expirati on Date Source [facility] [id number] 2018 00:00:00 [facility] LISA [id number] 2020 00:00:00 Problems Condition Name Condition Details Condition Category Status Onset Date Resolution Date Last Treatment Date Treating Clinician Comments Source Bacterial vaginosis Bacterial Vaginosis Problem Active 2023-03 2- 00:00: 00 [facility] Genital herpes simplex Genital Herpes Simplex Problem Active 2023-03 2-16 00:00: 00 [facility] Acute vaginitis Acute Vaginitis Problem Active 2023-03 00:00: 00 [facility] Cigarette smoker Cigarette Smoker Problem Active 2023-03 00:00: 00 [facility] Papanicola ou smear of cervix with low 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) Disease Active -18 00:00: 00 [facility] Pap smear abnormalit y of cervix with ASCUS favoring benign Pap smear abnormalit y of cervix with ASCUS favoring benign Disease Active 6-27 00:00: 00 [facility] Missed period Missed period Disease Active 6 00:00: 00 [facility] Family planning counseling Family planning counseling Disease Active 2020-03 00:00: 00 [facility] Bipolar affective disorder, currently depressed, mild Bipolar affective disorder, currently depressed, mild Disease Active 2020-03 00:00: 00 [facility] Anemia of mother in , condition Anemia of mother in , condition Disease Active 2020-03 00:00: 00 [facility] Problem Problem [facility] Allergies, Adverse Reactions, Alerts Allergy Name Allergy Type Status Severity Reaction(s) Onset Date Inactive Date Treating Clinician Comments Source No Known Allergie s DA Active U 2025-0 4-12 00:00: [address] [facility] [place] No known drug Allergie s Miscella neous Allergy Active U Not Specified 03-30 12:05: 23 [facility] No known drug Allergie s Miscella neous Allergy Active U Not Specified 03-30 12:05: 23 [facility] No known drug Allergie s Miscella neous Allergy Active U Not Specified 03-30 12:05: 23 [facility] No known drug Allergie s Miscella neous Allergy Active U Not Specified 03-30 12:05: 23 [facility] No Known Allergie s NA Active 07-04 14:20: 16 [facility] No Known Allergie s NA Active 07-04 13:50: 13 [facility] No Known Allergie s NA Active 07-04 13:38: 34 [facility] NO KNOWN ALLERGIE S Drug Class Active [facility] Social History Social Habit Start Date Stop Date Quantity Comments Source ASSERTION [facility] Gender identity [facility] Sexual orientation [facility] History of tobacco use Located [facility] Tobacco use and exposure 2024-11-23 00:00:00 2024-11-23 00:00:00 Smokeless tobacco non-user [facility] Exposure to SARS-CoV-2 (event) 2021-11-18 00:00:00 2021-11-28 10:27:00 Not sure [facility] History of Social function 2021-02-14 00:00:00 2021-02-14 00:00:00 [facility] Alcohol intake 2020-07-12 00:00:00 2020-07-12 00:00:00 Ex-drinker (finding) [facility] time of call 2020-05-30 11:28:40 2020-05-30 11:28:40 05/30/2020 11:28 AM [facility] Sex Assigned At 1995 00:00:00 1995 00:00:00 Female Located within [facility] Smoking Status Start Date Stop Date Source Unknown if [facility] Day [facility] Never smoked tobacco [facility] Ex-smoker (finding) 2021-09-16 18:24:00 2021-09-16 18: 24:00 Located within [facility] Medications Ordered Medication Name Filled Medication Name Start Date Stop Date Current Medication? Ordering Clinician Indication Dosage Frequency Signature (SIG) Comments Components Source penicillin v potassium (VEETID) 250 mg/5 mL suspension penicillin v potassium (VEETID) 250 mg/5 mL suspension 11-23 00:00: 00 12-03 23:59 :00 No 500mg Q.5D Take 10 mL (500 mg total) by mouth 2 (two) times a day for 10 days [facility] metroNIDAZO LE (FLAGYL) 500 mg tablet 2021-03 00:00: 00 02-27 05:59 :00 No 500mg Take 1 tablet by mouth every 12 (twelve) hours for 7 days. [facility] SERTraline 50 mg tablet 2020-03 14:35: 24 Yes 50mg Take 50 mg by mouth daily. [facility] lurasidone (LATUDA) 20 mg tablet 2020-03 14:35: 24 Yes 20mg Take 20 mg by mouth. [facility] ondansetron HCl (ZOFRAN ORAL) 2020-03 05:34: 56 01-14 00:00 :00 No Take by mouth. [facility] ferrous sulfate 325 mg (65 mg iron) tablet 2020-03 00:00: 00 Yes [id number] 325mg Take 1 tablet by mouth 2 (two) times daily. [facility] vitamin w/FA tablet 2020-03 00:00: 00 Yes [id number] 1{tbl} Take 1 tablet by mouth daily. [facility] docusate calcium 240 mg capsule 2020-03 00:00: 00 Yes [id number] 240mg Take 1 capsule by mouth once daily as needed for Constipati on. [facility] HYDROcodone -acetaminop hen 5-325 mg tablet 2020-0318 00:00: 00 Yes [id number] 1{tbl} Take 1 tablet by mouth every 6 (six) hours as needed (Pain scale above 4). Do not exceed 3 grams of acetaminop hen in 24 hours. Indication s: acute pain [facility] ibuprofen 600 mg tablet 2020-03 00:00: 00 Yes [id number] 600mg Take 1 tablet by mouth every 6 (six) hours as needed (Pain). Take with food or milk. [facility] Cephalexin (Keflex) 500 Mg CAP 2020-03 008 14:11: 00 No 500mg [facility] Cephalexin (Keflex) 500 Mg CAP 2020-03 008 14:11: 00 No 500mg Four Times Daily for Uti [facility] Cephalexin (Keflex) 500 Mg CAP 2020-03 0-08 14:11: 00 01-12 00:00 :00 No 500mg Four Times Daily for Uti [facility] Cephalexin (Keflex) 500 Mg CAP 2020-03 0-08 14:11: 01-12 00:00 :00 No 500mg Four Times Daily for Uti [facility] Cephalexin (Keflex) 500 Mg CAP 09-06 17:08: 00 No 500mg [facility] Cephalexin (Keflex) 500 Mg CAP 09-06 17:08: 00 10-07 00:00 :00 No 500mg [facility] Cephalexin (Keflex) 500 Mg CAP 09-06 17:08: 00 10-07 00:00 :00 No 500mg [facility] Cephalexin (Keflex) 500 Mg CAP 09-06 17:08: 00 10-07 00:00 :00 No 500mg Every 8 Hours [facility] Cephalexin (Keflex) 500 Mg CAP 09-06 17:08: 00 10-07 00:00 :00 No 500mg Every 8 Hours [facility] Cephalexin (Keflex) 500 Mg CAP 09-06 17:08: 00 10-07 00:00 :00 No 500mg Every [address] [facility] Cephalexin (Keflex) 500 Mg CAP 6-10 17:08: 00 10-07 00:00 :00 No 500mg Every [address] [facility] ondansetron (ZOFRAN) 4 mg tablet 4-15 00:00: 00 01-14 00:00 :00 No [id number] 4mg Take 1 tablet by mouth every 8 (eight) hours as needed for Nausea and Vomiting (N/V). [facility] No Home Meds No [facility] No Home Meds No [facility] No Home Meds No [facility] No Home Meds No [facility] No Home Meds No [facility] No Home Meds No [facility] metronidazo le 500 mg tablet Take 1 tablet twice a day by oral route for 7 days. no alcohol with this rx metronidazo le 500 mg tablet Take 1 tablet twice a day by oral route for 7 days. no alcohol with this rx No 1 BID metronidaz ole 500 mg tablet Take 1 tablet twice a day by oral route for 7 days. no alcohol with this rx [facility] valacyclovi r 500 mg tablet 1 tablet daily and twice daily for 5 days with outbreak valacyclovi r 500 mg tablet 1 tablet daily and twice daily for 5 days with outbreak No valacyclov ir 500 mg tablet 1 tablet daily and twice daily for 5 days with outbreak [facility] Immunizations Ordered Immunization Name Filled Immunization Name Date Status Comments Source Influenza Virus Vaccine Quad IM, Preserv and ABX Free 6 MO-64 YRS 2021-02-06 00:00:00 Completed [facility] Influenza Virus Vaccine Quad IM, Preserv and ABX Free 6 MO-64 YRS 2021-02-06 00:00:00 Completed [facility] Influenza Virus Vaccine Quad IM, Preserv and ABX Free 6 MO-64 YRS 2021-02-06 00:00:00 Completed [facility] Influenza Virus Vaccine Quad IM, Preserv and ABX Free 6 MO-64 YRS 2021-02-06 00:00:00 Completed [facility] Influenza Virus Vaccine Quad IM, Preserv and ABX Free 6 MO-64 YRS 2021-02-06 00:00:00 Completed [facility] HPV9 2021-01-24 00:00:00 Completed [facility] HPV9 2021-01-24 00:00:00 Completed [facility] HPV9 2021-01-24 00:00:00 Completed [facility] HPV9 2021-01-24 00:00:00 Completed [facility] HPV9 2021-01-24 00:00:00 Completed [facility] HPV9 2020-03-20 00:00:00 Completed [facility] HPV9 2020-03-20 00:00:00 Completed [facility] HPV9 2020-03-20 00:00:00 Completed [facility] HPV9 2020-03-20 00:00:00 Completed [facility] HPV9 2020-03-20 00:00:00 Completed [facility] HPV9 2020-01-19 00:00:00 Completed [facility] HPV9 2020-01-19 00:00:00 Completed [facility] HPV9 2020-01-19 00:00:00 Completed [facility] HPV9 2020-01-19 00:00:00 Completed [facility] HPV9 2020-01-19 00:00:00 Completed [facility] TDAP 2015-11-20 00:00:00 Completed [facility] TDAP 2015-11-20 00:00:00 Completed [facility] TDAP 2015-11-20 00:00:00 Completed [facility] TDAP 2015-11-20 00:00:00 Completed [facility] TDAP 2015-11-20 00:00:00 Completed [facility] Influenza Virus Vaccine (3+ yrs) 2015-06-18 00:00:00 Completed [facility] Influenza Virus Vaccine (3+ yrs) 2015-06-18 00:00:00 Completed [facility] Influenza Virus Vaccine (3+ yrs) 2015-06-18 00:00:00 Completed [facility] Influenza Virus Vaccine (3+ yrs) 2015-06-18 00:00:00 Completed [facility] Influenza Virus Vaccine (3+ yrs) 2015-06-18 00:00:00 Completed [facility] HPV9 Unknown Completed [facility] Influenza Virus Vaccine (3+ yrs) Unknown Completed [facility] TDAP Unknown Completed [facility] Vital Signs Vital Name Observation Time Observation Value Comments S ource Respiratory rate 2024-11-23 10:24:00 18 /min [facility] Body height 2024-11-23 10:24:00 162.6 cm [facility] Body weight 2024-11-23 10:24:00 64.864 kg [facility] BMI 2024-11-23 10:24:00 24.55 kg/m2 [facility] BMI (Body Mass Index) 2024-03-14 00:00:00 22.5 kg/m2 [facility] BP Systolic 2024-03-14 00:00:00 127 mm[Hg] [facility] BP Diastolic 2024-03-14 00:00:00 72 mm[Hg] [facility] Body Weight 2024-03-14 00:00:00 133.4 [lb_av] [facility] Height 2024-03-14 00:00:00 64.5 [in_i] [facility] Systolic blood pressure 2021-11-28 18:26:00 127 mm[Hg] [facility] Diastolic blood pressure 2021-11-28 18:26:00 81 mm[Hg] [facility] Heart rate 2021-11-28 18:26:00 104 /min [facility] Body height 2021-11-28 18:26:00 162.6 cm [facility] Body weight 2021-11-28 18:26:00 55.157 kg [facility] BMI 2021-11-28 18:26:00 20.87 kg/m2 [facility] BP Diastolic 2021-09-16 18:22:00 103 mm[Hg] [facility] BP Systolic 2021-09-16 18:22:00 147 mm[Hg] [facility] Heart Rate 2021-09-16 18:22:00 92 /min [facility] Respiratory rate 2021-09-16 18:22:00 18 /min [facility] Body Temperature 2021-09-16 18:22:00 98.6 [degF] [facility] BP Diastolic 2021-09-16 18:19:00 103 mm[Hg] [facility] BP Systolic 2021-09-16 18:19:00 147 mm[Hg] [facility] Heart Rate 2021-09-16 18:19:00 92 /min [facility] Respiratory rate 2021-09-16 18:19:00 18 /min [facility] Body Temperature 2021-09-16 18:19:00 98.6 [degF] [facility] BP Diastolic 2021-07-06 03:23:00 81 mm[Hg] [facility] BP Systolic 2021-07-06 03:23:00 133 mm[Hg] [facility] Heart Rate 2021-07-06 03:23:00 90 /min [facility] Respiratory rate 2021-07-06 03:23:00 19 /min [facility] Body Temperature 2021-07-06 03:23:00 98.1 [degF] [facility] BP Diastolic 2021-07-06 00:17:00 81 mm[Hg] [facility] BP Systolic 2021-07-06 00:17:00 133 mm[Hg] [facility] Heart Rate 2021-07-06 00:17:00 90 /min [facility] Respiratory rate 2021-07-06 00:17:00 19 /min [facility] Body Temperature 2021-07-06 00:17:00 98.1 [degF] [facility] BP Diastolic 2021-01-04 14:18:00 76 mm[Hg] [facility] BP Systolic 2021-01-04 14:18:00 126 mm[Hg] [facility] Heart Rate 2021-01-04 14:18:00 92 /min [facility] Respiratory rate 2021-01-04 14:18:00 18 /min [facility] Body Temperature 2021-01-04 14:18:00 98.5 [degF] [facility] BP Diastolic 2021-01-04 10:50:00 72 mm[Hg] [facility] BP Systolic 2021-01-04 10:50:00 116 mm[Hg] [facility] Heart Rate 2021-01-04 10:50:00 81 /min [facility] Respiratory rate 2021-01-04 10:50:00 18 /min [facility] Body Temperature 2021-01-04 10:50:00 98.5 [degF] [facility] BP Diastolic 2020-12-26 10:47:00 74 mm[Hg] [facility] BP Systolic 2020-12-26 10:47:00 128 mm[Hg] [facility] Heart Rate 2020-12-26 10:47:00 82 /min [facility] Respiratory rate 2020-12-26 10:47:00 18 /min [facility] Body Temperature 2020-12-26 10:47:00 99.0 [degF] [facility] BP Diastolic 2020-09-22 15:10:00 70 mm[Hg] [facility] BP Systolic 2020-09-22 15:10:00 118 mm[Hg] [facility] Heart Rate 2020-09-22 15:10:00 80 /min [facility] Respiratory rate 2020-09-22 15:10:00 18 /min [facility] Body Temperature 2020-09-22 15:10:00 98.6 [degF] [facility] BP Diastolic 2020-09-06 17:21:00 75 mm[Hg] [facility] BP Systolic 2020-09-06 17:21:00 111 mm[Hg] [facility] Heart Rate 2020-09-06 17:21:00 71 /min [facility] Respiratory rate 2020-09-06 17:21:00 20 /min [facility] Body Temperature 2020-09-06 17:21:00 98.6 [degF] [facility] BP Diastolic 2020-09-06 11:55:00 75 mm[Hg] [facility] BP Systolic 2020-09-06 11:55:00 111 mm[Hg] [facility] Heart Rate 2020-09-06 11:55:00 71 /min [facility] Respiratory rate 2020-09-06 11:55:00 20 /min [facility] Body Temperature 2020-09-06 11:55:00 98.6 [degF] [facility] Procedures Procedure Date / Time Performed Performing Clinician Source DISCLOSURE AND CONSENT, MEDICAL AND SURGICAL PROCEDURES 2021-11-28 05:01:00 Doctor Unassigned, [place] [facility] POCT TEST 2021-11-28 00:00:00 Steven Narayanan [facility] Delivery 2021-01-13 00:00:00 [facility] Ther/proph/diag inj SC/IM 2020-12-27 00:00:00 Located within [facility] Betamethasone acet&sod phosp 2020-12-27 00:00:00 Located within [facility] non-stress test 2020-12-26 00:00:00 [facility] outpt clinic visit 2020-12-26 00:00:00 Located within [facility] Ther/proph/diag inj SC/IM 2020-12-26 00:00:00 Located within [facility] NON-STRESS TEST 2020-12-26 00:00:00 Located within [facility] URINALYSIS AUTO W/SCOPE 2020-12-26 00:00:00 Located within [facility] ASSAY OF FIBRONECTIN 2020-12-26 00:00:00 Located within [facility] URINE CULTURE/COLONY COUNT 2020-12-26 00:00:00 Located within [facility] SARSCOV CORONAVIRUS AG IA 2020-12-26 00:00:00 [facility] outpt clinic visit 2020-12-26 00:00:00 Located within [facility] Betamethasone acet&sod phosp 2020-12-26 00:00:00 Located within [facility] Terbutaline sulfate inj 2020-12-26 00:00:00 [facility] outpt clinic visit 2020-09-22 00:00:00 Located within [facility] ROUTINE VENIPUNCTURE 2020-09-06 00:00:00 Located within [facility] OB US LIMITED FETUS(S) 2020-09-06 00:00:00 Located within [facility] METABOLIC PANEL IONIZED CA 2020-09-06 00:00:00 Located within [facility] URINALYSIS AUTO W/O SCOPE 2020-09-06 00:00:00 Located within [facility] CHORIONIC GONADOTROPIN TEST 2020-09-06 00:00:00 Located within [facility] BLOOD TYPING SEROLOGIC ABO 2020-09-06 00:00:00 Located within [facility] BLOOD TYPING SEROLOGIC RH(D) 2020-09-06 00:00:00 Located within [facility] URINE CULTURE/COLONY COUNT 2020-09-06 00:00:00 Located within [facility] EMERGENCY DEPT VISIT 2020-09-06 00:00:00 [facility] obstetrical ultrasound 2020-09-06 00:00:00 Located within [facility] Plan of Care Planned Activity Planned Date Details Comments Source Future Scheduled Test Bacteria U r Cult [code = 630-4] [facility] Future Scheduled Test Bacteria U r Cult [code = 630-4] [facility] Future Scheduled Test Bacteria U r Cult [code = 630-4] [facility] Goal Patient referral [code = 4134501 ] [facility] Goal Patient referral [code = 0686506 ] [facility] Goal Patient referral [code = 9364657 ] [facility] Goal Patient referral [code = 8577388 ] [facility] Instructions Threatened Miscarriage [facility] Instructions Urinary Tract In fection, Adult (DC) [facility] Instructions Threatened Miscarriage [facility] Instructions Urinary Tract In fection, Adult (DC) [facility] Instructions Urinary Tract In fections in Adults [facility] Instructions Labor [facility] Instructions Lowering Your Ri sk of [facility] Instructions Threatened Miscarriage [facility] Instructions Urinary Tract In fection, Adult (DC) [facility] Encounters Start Date/Time End Date/Time Encounter Type Admission Type Attending Clinicians Care Facility Care Department Encounter ID Source 2021-01-29 06:17:03 Outpatient X [facility] JOAO [id number] [facility] 2021-01-29 05:36:26 Emergency [facility] [id number] [facility] 2024-11-23 10:20:00 2024-11-23 10:30:00 E-Visit Analilia [facility] [id number] [facility] 2024-07-09 19:42:00 2024-07-10 02:50:00 Emergency Joe [facility] [id number] [address] [facility] are [facility] 2024-03-14 00:00:00 2024-03-14 00:00:00 DANIAL Owens: [address], [place] [id number] , Ph. [facility] - GC_GCBZW_[place]* [id number] [facility] 2022-03-26 08:30:00 2022-03-26 08:30:00 Outpatient JENNIFER SINGH [facility] [id number] [facility] 2022-02-19 00:00:00 2022-02-19 00:00:00 Telephone Oracio Steven [facility] [id number] [facility] 2021-12-04 08:30:00 2021-12-04 08:30:00 Outpatient POP NUGENT [facility] [id number] [facility] 2021-12-03 00:00:00 2021-12-03 00:00:00 Telephone [facility] Steven [facility] [id number] [facility] 2021-12-03 00:00:00 2021-12-03 00:00:00 Telephone Oracio Steven [facility] [id number] [facility] 2021-11-28 10:00:00 2021-11-28 14:12:05 Outpatient R STEVEN NARAYANAN [facility] [id number] [facility] 2021-11-28 10:00:00 2021-11-28 14:12:05 Office Visit [facility] [id number] [facility] 2021-11-28 10:00:00 2021-11-28 14:12:05 Outpatient R ORACIO STEVEN [facility] [id number] [facility] 2021-11-28 00:00:00 2021-11-28 00:00:00 Orders Only Doctor Unassigned, [place] [facility] [id number] [facility] 2021-11-18 13:40:00 2021-11-18 13:40:00 Outpatient [facility] [id number] [facility] 2021-11-18 13:40:00 2021-11-18 13:40:00 Outpatient [facility] [id number] [facility] 2021-11-18 00:00:00 2021-11-18 00:00:00 Telephone Steven Narayanan [facility] ..114 350.1.13.10 4.2.7.2.686 [id number] [facility] 2021-10-20 00:00:00 2021-10-20 00:00:00 Patient Secure Msg Lachelle Mauricio [facility] SALESPERSON [employer] [facility] MATERNAL & CHILD [facility] 1.840.114 350.1.13.10 4.2.7.2.686 [id number] [facility] 2021-10-17 00:00:00 2021-10-17 00:00:00 Patient Secure Msg Doctor Unassigned, [place] [facility] SALESPERSON [employer] [facility] MATERNAL & CHILD [facility] .0.114 350.1.13.10 4.2.7.2.686 [id number] [facility] 2021-10-15 00:00:00 2021-10-15 00:00:00 Telephone Jennifer Nevarez [facility] SALESPERSON [employer] [facility] MATERNAL & CHILD [facility] 1.0.114 350.1.13.10 4.2.7.2.686 [id number] [facility] 2021-10-14 00:00:00 2021-10-14 00:00:00 Case Management Woody Jennifer [facility] SALESPERSON [employer] [facility] CHILD [facility] 1.0.114 350.1.13.10 4.2.7.2.686 [id number] [facility] 2021-09-23 15:30:00 2021-09-23 17:10:11 Office Visit Woody Jennifer [facility] 1..114 350.1.13.10 4.2.7.2.686 [id number] [facility] 2021-09-23 15:30:00 2021-09-23 17:10:11 Outpatient R JENNIFER NEVAREZ [facility] [id number] [facility] 2021-09-23 15:30:00 2021-09-23 15:30:00 Outpatient R JENNIFER NEVAREZ [facility] [id number] [facility] 2021-09-23 00:00:00 2021-09-23 00:00:00 Orders Only Doctor Unassigned, [place] [facility] 1.84.114 350.1.13.10 4.2.7.2.686 [id number] [facility] 2021-09-23 00:00:00 2021-09-23 00:00:00 Letter (Out) Jennifer Nevarez [facility] [employer]ERSON [employer] [facility] 1..114 350.1.13.10 4.2.7.2.686 [id number] [facility] 2021-09-16 18:17:00 2021-09-16 20:11:00 Registered Emergency Room ER OMKAR GÓMEZ [id number] [facility] 2021-07-06 00:43:00 2021-07-06 03:23:00 Departed Emergency Room ER SHAYE KHAN [id number] [facility] 2021-03-30 18:04:00 2021-03-30 20:42:00 Emergency Department Patient Visit [facility] [id number] [facility] 2021-03-30 12:04:00 2021-03-30 14:42:00 Outpatient Encounter BELINDA DIALLO [facility] [id number] [facility] 2021-03-11 13:45:00 2021-03-11 14:52:23 Outpatient JENNIFER SINGH [facility] [id number] [facility] 2021-03-11 13:45:00 2021-03-11 14:52:23 Outpatient JENNIFER SINGH [facility] [id number] [facility] 2021-03-11 13:22:58 2021-03-11 14:52:23 Office Visit Jennifer Nevarez [facility] SALESPERSON [employer] [facility] MATERNAL & CHILD [facility] 1.2.840.114 350.1.13.10 4.2.7.2.686 [id number] [facility] 2021-03-11 13:45:00 2021-03-11 13:45:00 Outpatient JENNIFER SINGH [facility] [id number] [facility] 2021-03-07 10:30:00 2021-03-07 10:30:00 Outpatient DESTINY RIOS [facility] [id number] [facility] 2021-02-28 14:15:00 2021-02-28 14:15:00 Outpatient ROSALES DONNELLY [facility] [id number] [facility] 2021-02-14 09:01:57 2021-02-14 10:06:29 Office Visit Jennifer Nevarez [facility] SALESPERSON [employer] [facility] & CHILD [facility] 1..840.114 350.1.13.10 4.2.7.2.686 [id number] [facility] 2021-02-14 09:00:00 2021-02-14 10:06:29 Outpatient JENNIFER SINGH [facility] [id number] [facility] 2021-02-14 09:00:00 2021-02-14 09:00:00 Outpatient JENNIFER SINGH [facility] [id number] [facility] 2021-02-14 00:00:00 2021-02-14 00:00:00 Orders Only Doctor Unassigned, [place] [facility] 1.840.114 350.1.13.10 4.2.7.2.686 [id number] [facility] 2021-02-13 15:00:00 2021-02-13 15:00:00 Outpatient DESTINY RIOS [facility] [id number] [facility] 2021-02-13 15:00:00 2021-02-13 15:00:00 Outpatient DESTINY RIOS [facility] [id number] [facility] 2021-02-13 00:00:00 2021-02-13 00:00:00 Telephone Destiny Yun [facility] [employer]ERSON [employer] [facility] 1.840.114 350.1.13.10 4.2.7.2.686 [id number] [facility] 2021-02-11 00:00:00 2021-02-11 00:00:00 Telephone Destiny Yun [facility] SALESPERSON [employer] [facility] CHILD [facility] 1..840.114 350.1.13.10 4.2.7.2.686 [id number] [facility] 2021-02-06 14:00:15 2021-02-06 15:09:26 Routine Visit Brissa White [facility] SALESPERSON [employer] [facility] MATERNAL & CHILD [facility] 1..840.114 350.1.13.10 4.2.7.2.686 [id number] [facility] 2021-02-06 14:00:00 2021-02-06 15:09:26 Outpatient R MARIAMA WHITEILA [facility] [id number] [facility] 2021-02-02 14:07:00 2021-02-02 16:51:00 Emergency ER AMAURYKAT Luna [id number] [address] [place] [address] 2021-01-31 00:00:00 2021-01-31 00:00:00 Telephone Steven Narayanan [facility] 1.840.114 350.1.13.10 4.2.7.2.686 [id number] [facility] 2021-01-24 13:00:49 2021-01-24 13:47:54 Nurse Visit Visit, Amanda-Rmchp Nurse Hernesto [facility] SALESPERSON [employer] [facility] MATERNAL & CHILD [facility] 1..840.114 350.1.13.10 4.2.7.2.686 [id number] [facility] 2021-01-24 13:00:00 2021-01-24 13:47:54 Outpatient R DESTINY YUN [facility] [id number] [facility] 2021-01-21 08:30:00 2021-01-21 08:30:00 Outpatient R [facility] [id number] [facility] 2021-01-21 00:00:00 2021-01-21 00:00:00 Telephone Steven Narayanan [facility] 1.840.114 350.1.13.10 4.2.7.2.686 [id number] [facility] 2021-01-18 00:00:00 2021-01-18 00:00:00 [facility] 1.2.840.114 350.1.13.10 4.2.7.2.686 [id number] [facility] 2021-01-18 00:00:00 2021-01-18 00:00:00 Letter (Out) Steven Narayanan [facility] 1.2840.114 350.1.13.10 4.2.7.2.686 [id number] [facility] 2021-01-17 14:40:00 2021-01-17 14:40:00 Outpatient R MARTIN MICHELLE [facility] [id number] [facility] 2021-01-17 13:30:00 2021-01-17 13:30:00 Outpatient R STEVEN NARAYANAN [facility] [id number] [facility] 2021-01-15 00:00:00 2021-01-15 00:00:00 Nurse Triage Jeramyjaquelineduardo [facility] 1.2840.114 350.1.13.10 4.2.7.2.686 [id number] [facility] 2021-01-15 00:00:00 2021-01-15 00:00:00 Telephone Steven Narayanan [facility] 1.2840.114 350.1.13.10 4.2.7.2.686 [id number] [facility] 2021-01-15 00:00:00 2021-01-15 00:00:00 Telephone Steven Narayanan [facility] 1.2.840.114 350.1.13.10 4.2.7.2.686 [id number] [facility] 2021-01-12 18:31:00 2021-01-14 18:06:00 Hospital [facility] 1.2.840.114 350.1.13.10 4.2.7.2.686 [id number] [facility] 2021-01-13 20:01:23 2021-01-13 20:01:23 Anesthesia Event Ronnie Davis [facility] 1.2.840.114 350.1.13.10 4.2.7.2.686 [id number] [facility] 2021-01-12 22:50:00 2021-01-13 00:43:00 Surgery Margarita [facility] 1.2.840.114 350.1.13.10 4.2.7.2.686 [id number] [facility] 2021-01-12 00:00:00 2021-01-12 00:00:00 Nurse Triage Noemi Nova [facility] 1.2.840.114 350.1.13.10 4.2.7.2.686 [id number] [facility] 2021-01-12 00:00:00 2021-01-12 00:00:00 Orders Only Doctor Unassigned, [place] [facility] 1.2.840.114 350.1.13.10 4.2.7.2.686 [id number] [facility] 2021-01-09 00:00:00 2021-01-09 00:00:00 Orders Only Doctor Unassigned, [place] [facility] 1.2.840.114 350.1.13.10 4.2.7.2.686 [id number] [facility] 2021-01-06 22:48:00 2021-01-08 16:59:00 Hospital Encounter Colleen Becerra Parin [facility] 1.2.840.114 350.1.13.10 4.2.7.2.686 [id number] [facility] 2021-01-04 11:17:00 2021-01-04 14:24:00 Departed Emergency Room ER YEMARNI CHUNG [id number] [facility] 2021-01-04 11:17:00 2021-01-04 14:24:00 Departed Emergency Room CODY Soto. Elizabeth [id number] [facility] 2021-01-04 00:00:00 2021-01-04 00:00:00 [facility] 1.0.114 350.1.13.10 4.2.7.2.686 [id number] [facility] 2021-01-04 00:00:00 2021-01-04 00:00:00 Telephone Steven Narayanan [facility] 1..114 350.1.13.10 4.2.7.2.686 [id number] [facility] 2021-01-03 15:54:06 2021-01-03 16:48:17 Routine Visit Steven Narayanan [facility] 1.2.114 350.1.13.10 4.2.7.2.686 [id number] [facility] 2021-01-03 11:40:00 2021-01-03 11:40:00 Outpatient R STEVEN NARAYANAN [facility] [id number] [facility] 2020-12-31 00:00:00 2020-12-31 00:00:00 Telephone Steven Narayanan [facility] 1.2.114 350.1.13.10 4.2.7.2.686 [id number] [facility] 2020-12-27 13:20:21 2020-12-27 14:34:50 Routine Visit Steven Narayanan [facility] 1.2.114 350.1.13.10 4.2.7.2.686 [id number] [facility] 2020-12-27 13:40:00 2020-12-27 13:40:00 Outpatient STEVEN WEINSTEIN [facility] [id number] [facility] 2020-12-27 07:56:00 2020-12-27 07:56:00 Registered Clinic BALBINA BENZ [id number] [facility] 2020-12-27 07:56:00 2020-12-27 07:56:00 Registered Clinic CODY LAI [facility] Anton Ruiz [id number] [facility] 2020-12-26 10:47:00 2020-12-26 17:30:00 [facility]ed [facility] Anton Ruiz [id number] [facility] 2020-12-26 10:47:00 2020-12-26 10:47:00 Departed Clinic BALBINA CASTLE [id number] [facility] 2020-12-13 13:29:15 2020-12-13 13:49:15 Routine Visit Steven Narayanan [facility] 1..840.114 350.1.13.10 4.2.7.2.686 [id number] [facility] 2020-12-13 13:20:00 2020-12-13 13:20:00 Outpatient Amando NARAYANANALEXANDRORY [facility] [id number] [facility] 2020-12-06 09:50:52 2020-12-06 10:51:42 Routine Visit Steven Narayanan Parin [facility] 1..840.114 350.1.13.10 4.2.7.2.686 [id number] [facility] 2020-12-06 09:50:52 2020-12-06 10:51:42 Routine Visit Steven Narayanan Martin [facility] ..114 350.1.13.10 4.2.7.2.686 [id number] [facility] 2020-12-06 09:40:00 2020-12-06 09:40:00 Outpatient Amando MICHELLE [facility] [id number] [facility] 2020-11-30 15:45:00 2020-11-30 15:45:00 Outpatient R VIKKINOREEN [facility] [id number] [facility] 2020-11-15 13:30:00 2020-11-15 13:30:00 Outpatient R STEVEN NARAYANAN [facility] [id number] [facility] 2020-11-01 13:47:43 2020-11-01 14:35:34 Routine Visit Steven Narayanan [facility] 1..114 350.1.13.10 4.2.7.2.686 [id number] [facility] 2020-11-01 14:15:00 2020-11-01 14:15:00 Outpatient R STEVEN NARAYANAN [facility] [id number] [facility] 2020-10-04 15:43:57 2020-10-04 16:34:19 Routine Visit Steven Narayanan [facility] ..114 350.1.13.10 4.2.7.2.686 [id number] [facility] 2020-10-04 15:30:00 2020-10-04 15:30:00 Outpatient R STEVEN NARAYANAN [facility] [id number] [facility] 2020-09-28 09:02:36 2020-09-28 10:02:36 Presidential Support Specialist Visit 2, [employer] Ultras[facility] David Simental [facility] SALESPERSON [employer] [facility] MATERNAL & [facility] 1.2.840.114 350.1.13.10 4.2.7.2.686 [id number] [facility] 2020-09-28 09:00:00 2020-09-28 09:00:00 Outpatient P [facility] [id number] [facility] 2020-09-22 14:10:00 2020-09-22 16:05:00 Dep[facility]ed [facility] Anton Ruiz [id number] [facility] 2020-09-22 14:10:00 2020-09-22 14:10:00 Departed Clinic MORELIA [facility] [id number] [facility] 2020-09-22 00:00:00 2020-09-22 00:00:00 Nurse Triage Rachel [facility] 1.2.840.114 350.1.13.10 4.2.7.2.686 [id number] [facility] 2020-09-09 00:00:00 2020-09-09 00:00:00 Telephone Steven Narayanan [facility] 1.2.840.114 350.1.13.10 4.2.7.2.686 [id number] [facility] 2020-09-07 16:09:55 2020-09-07 16:24:55 Presidential Support Specialist Visit [facility] 1.2840.114 350.1.13.10 4.2.7.2.686 [id number] [facility] 2020-09-07 14:20:10 2020-09-07 16:05:32 Routine Visit [facility] 1.2840.114 350.1.13.10 4.2.7.2.686 [id number] [facility] 2020-09-07 13:30:00 2020-09-07 13:30:00 Outpatient Amando FLOREZNOREEN CUBA [facility] [id number] [facility] 2020-09-06 12:41:00 2020-09-06 17:23:00 Departed Emergency Room CODY Soto. Elizabeth [id number] [address] [facility] 2020-09-06 11:42:00 2020-09-06 17:23:00 Departed Emergency Room NICHOLAS PETERSON [id number] [address] [facility] 2020-09-06 11:00:00 2020-09-06 11:00:00 Outpatient MEDINA BAR [facility] [id number] [facility] 2020-09-04 00:00:00 2020-09-04 00:00:00 Telephone Oracio Steven [facility] 1.2.840.114 350.1.13.10 4.2.7.2.686 [id number] [facility] 2020-08-28 00:00:00 2020-08-28 00:00:00 Patient Secure [facility] 1.2.840.114 350.1.13.10 4.2.7.2.686 [id number] [facility] 2020-08-28 00:00:00 2020-08-28 00:00:00 Patient Secure [facility] 1.2.840.114 350.1.13.10 4.2.7.2.686 [id number] [id number] [facility] 2020-08-21 00:00:00 2020-08-21 00:00:00 Telephone Oracio [facility] 1.2840.114 350.1.13.10 4.2.7.2.686 [id number] [facility] 2020-08-13 00:00:00 2020-08-13 00:00:00 Telephone Steven Narayanan [facility] 1.2.840.114 350.1.13.10 4.2.7.2.686 [id number] [facility] 2020-08-09 13:53:26 2020-08-09 14:08:26 Presidential Support Specialist Visit [facility] Steven Narayanan [facility] 1.2.840.114 350.1.13.10 4.2.7.2.686 [id number] [facility] 2020-08-09 13:25:35 2020-08-09 13:49:52 Routine Visit Steven Narayanan [facility] 1.2.840.114 350.1.13.10 4.2.7.2.686 [id number] [facility] 2020-08-09 13:30:00 2020-08-09 13:30:00 Outpatient R STEVEN NARAYANAN [facility] [id number] [facility] 2020-08-09 00:00:00 2020-08-09 00:00:00 Orders Only Doctor Unassigned, [place] [facility] 1.2.840.114 350.1.13.10 4.2.7.2.686 [id number] [facility] 2020-07-13 00:00:00 2020-07-13 00:00:00 Patient Secure Msg Doctor Unassigned, [place] [facility] 1.2.840.114 350.1.13.10 4.2.7.2.686 [id number] [facility] 2020-07-13 00:00:00 2020-07-13 00:00:00 Patient Secure Msg Doctor Unassigned, [place] [facility] 1.2.840.114 350.1.13.10 4.2.7.2.686 [id number] [facility] 2020-07-12 15:35:33 2020-07-12 15:50:33 Presidential Support Specialist Visit [facility] Steven Narayanan [facility] 1.2.840.114 350.1.13.10 4.2.7.2.686 [id number] [facility] 2020-07-12 14:05:25 2020-07-12 15:36:43 Initial Visit Steven Narayanan [facility] 1.2.840.114 350.1.13.10 4.2.7.2.686 [id number] [facility] 2020-07-12 13:00:00 2020-07-12 13:00:00 Outpatient R STEVEN NARAYANAN [facility] [id number] [facility] 2020-07-04 14:33:25 2020-07-04 14:33:25 Emergency VINCENT GUILLEN [facility] [id number] [facility] 2020-06-04 00:00:00 2020-06-04 00:00:00 Office Visit Brandie Stevenson [facility] Encounter/ [id number] [facility] 2020-05-30 00:00:00 2020-05-30 00:00:00 Office Visit Gretchen Buckley Alyssa Manzanares, Yalixia [facility] Encounter/ [id number] [facility] Results Test Description Test Time Test Comments Results Result Co mments Source [facility] Ag with [id number] 00:00:00* Test Item Value Reference Range Interpretation Comme nts HIV Ab/P24 Ag screen (test c ode = HIV Ab/P24 Ag screen) NON REACTIVE non reactive [facility] B virus surface Ag [Presence] in Serum or Plasma by [id number] 00:00:00* Test Item Value Reference Range Interpretation Comme nts HBsAg screen (test code = HB sAg screen) NEGATIVE negative [facility]:2024-03-15 00:00:00* Test Item Value Reference Range Interpretation Comme nts interpretation: (test code = interpretation:) [facility] rfx to quant [id number] 00:00:00* Test Item Value Reference Range Interpretation Comme nts HCV Ab (test code = HCV Ab) NON REACTIVE non reactive [facility] 1996 panel - Serum or [id number] 00:00:00* Test Item Value Reference Range Interpretation Comme nts cholesterol (test code = cholesterol) 147 mg/dL 0-200 triglycerides (test code = triglycerides) 40 mg/dL 10-150 HDL cholesterol (test code = HDL cholesterol) 62 mg/dL >50 HDL risk factor (test code = HDL risk factor) 2.4 calc. VLDL cholesterol (test code = VLDL cholesterol) 8 calc dldl (test code = dldl) 81 mg/dL <100 [facility] CaliforniaThyrotropin [Units/volume] in Serum or [id number] 00:00:00* Test Item Value Reference Range Interpretation Comme nts TSH (test code = TSH) 0.521 uIU/mL 0.500-4.530 [facility] CaliforniaCBC W Auto Differential panel - [id number] 00:00:00* Test Item Value Reference Range Interpretation Comme nts WBC (test code = WBC) 4.4 10 3.7-12.0 RBC (test code = RBC) 4.45 10 3.60-5.50 HGB (test code = HGB) 12.0 g/dL 11.5-15.6 HCT (test code = HCT) 36.9 % 34.5-46.5 MCV (test code = MCV) 83.0 um 80.0-102.0 MCH (test code = MCH) 27.0 pg 25.0-34.1 MCHC (test code = MCHC) 32.6 g/dL 29.0-35.0 RDW (test code = RDW) 14.1 % 10.9-16.9 plt (test code = plt) 321 10 136-392 MPV (test code = MPV) 9.4 um 7.4-11.1 gran % (test code = gran %) 45.9 % 36.0-78.0 lymph % (test code = lymph %) 47.3 % 12.0-48.0 mono % (test code = mono %) 5.5 % 0.0-13.0 eos % (test code = eos %) 1 % 0-8 baso % (test code = baso %) 1 % 0-2 gran # (test code = gran #) 2.0 10 1.2-6.8 lymph # (test code = lymph #) 2.1 10 1.2-3.2 mono # (test code = mono #) 0.2 10 0.3-0.8 L eos # (test code = eos #) 0.0 10 0.0-0.4 baso # (test code = baso #) 0.0 10 0.0-0.2 [facility] 2000 panel - Serum or [id number] 00:00:00* Test Item Value Reference Range Interpretation Comme nts sodium (test code = sodium) 139 mmol/L 136-145 potassium (test code = potassium) 4.7 mmol/L 3.5-5.5 chloride (test code = chloride) 103 mmol/L 98-107 CO2 (test code = CO2) 26 mmol/ L 23-31 glucose (test code = glucose) 66 mg/dL 70-99 L BUN (test code = BUN) 15 mg/dL 6-20 creatinine (test code = creatinine) 0.8 mg/dL 0.5-0.9 calcium (test code = calcium) 10.2 mg/dL 8.5-10.5 total protein (test code = total protein) 8.0 g/dL 6.0-8.3 albumin (test code = albumin) 5.0 g/dL 3.5-5.2 total bilirubin (test code = total bilirubin) 0.3 mg/dL 0.0-1.2 alkaline phosphatase (test code = alkaline phosphatase) 45 U/L 44-147 AST (SGOT) (test code = AST (SGOT)) 18 U/L 0-32 ALT (SGPT) (test code = ALT (SGPT)) 11 U/L 0-33 globulin (test code = globulin) 3.0 g/dL 1.7-3.7 A/G ratio (test code = A/G ratio) 1.7 calc. 1.1-2.9 BUN/creatinine ratio (test code = BUN/creatinine ratio) 18.8 calc 10.0-28.0 eGFR (test code = eGFR) 103.503 mL/min/1.73A? >60.000 [id number] [facility]:00* Test Item Value Reference Range Interpretation Comme nts atopobium vaginae (test code = atopobium vaginae) 21.037 ppm 19.961-24.689 A bvab 2,3 (bacterial vaginosi s associated bacteria 2, 3); mobiluncus spp (test code = bvab 2,3 (bacterial vaginosis associated bacteria 2, 3); mobiluncus spp) 9.998 ppm 19.961-24.689 A ashley albicans, parapsilos is, tropicalis (test code = ashley albicans, parapsilosis, tropicalis) 0.000 ppm 19.961-30.770 ashley glabrata (nakaseomyc es glabratus) (test code = ashley glabrata (nakaseomyces glabratus)) 0.000 ppm 23.000-32.138 ashley krusei (pichia kudriavzevii) (test code = ashley krusei (pichia kudriavzevii)) 0.000 ppm 23.000-32.271 chlamydia trachomatis (test code = chlamydia trachomatis) 0.000 ppm 23.000-31.467 gardnerella vaginalis (test code = gardnerella vaginalis) 17.809 ppm 19.961-24.689 A herpes simplex virus 1 (test code = herpes simplex virus 1) 0.000 ppm 23.000-32.355 herpes simplex virus 2 (test code = herpes simplex virus 2) 0.000 ppm 23.000-31.433 megasphaera (types 1, 2) (te st code = megasphaera (types 1, 2)) 0.000 ppm 19.961-24.689 neisseria gonorrhoeae (test code = neisseria gonorrhoeae) 0.000 ppm 23.000-32.117 trichomonas vaginalis (test code = trichomonas vaginalis) 0.000 ppm 23.000-32.119 tet B, tet M (test code = te t B, tet M) 20.469 ppm 23.000-27.778 [id number]:06:00* Test Item Value Reference Range Interpretation Comme nts POCT PREG (test code = 1605) Negative On board controls acceptable with C Line (test code = 3574) Yes POCT PREG LOT # (test code = 3575) PO[facility] PREG TEST DATE ( test code = 3576[id number]* Test Item Value Reference Range Interpretation Comme nts POCT PREG (test code = 1605) Negative On board controls acceptable with C Line (test code = 3574) Yes POCT PREG LOT # (test code = 3575) POCT PREG TEST DATE ( test code = 3576) [facility] HospitalSpecimen source [id number] 00:30:00* Test Item Value Reference Range Interpretation Comme nts Respiratory Virus Source (test code = 48170-7) Nasopharyngeal Swab NICHOLAS De AndaQtsnwvFVYA-XtH-7 RNA Resp Ql TITO+bnoia7977-10-17 00:30:00* Test Item Value Reference Range Interpretation Comme nts Coronavirus (COVID-19)(PCR) (test code = 16390-0) NEGATIVE Negative [facility] HealthFLUAV RNA Nph Ql TITO+xcv-daoaj7364-29-09 00:30:00* Test Item Value Reference Range Interpretation Comme nts Influenza Virus Type A (PCR) (test code = 09916-1) NEGATIVE Negative [facility]FLUBV RNA Nph Ql TITO+tet-stren3590-09-09 00:30:00* Test Item Value Reference Range Interpretation Comme nts Influenza Virus Type B (PCR) (test code = 42408-6) NEGATIVE Negative [facility] HealthRSV RNA Nph Ql TITO+och-usrwu7386-34-09 00:30:00* Test Item Value Reference Range Interpretation Comme nts Respiratory Syncytial Virus (PCR) (test code = 60770-3) NEGATIVE Negative 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 mrqdrya8986-10-01 00:30:00* Test Item Value Reference Range Interpretation Comme nts N/A (test code = 22064-9) Unknown [facility] HealthPatient has symptoms for condition of cmrphuyr2923-41-97 00:30:00 * Test Item Value Reference Range Interpretation Comme nts N/A (test code = 18564-0) Unknown NICHOLAS HealthPt hospitalized bc hlzv4381-07-77 00:30:00* Test Item Value Reference Range Interpretation Comme nts N/A (test code = 73677-0) Unknown NICHOLAS HealthPregnancy ojvruw5703-09-11 00:30:00* Test Item Value Reference Range Interpretation Comme nts N/A (test code = 71148-7) Unknown NICHOLAS HealthPatient resides in congregate care iafryde7824-09-47 00:30:00* Test Item Value Reference Range Interpretation Comme nts N/A (test code = 86160-0) Unknown NICHOLAS HealthCHEST 1 VIEW TJDTSZDO1183-08-64 14:17:00 [facility] 1995 Sex: F[address] [id number] IMAGING REPORTPatient Name: SAM HURTADODajose of Service: [id number]: 25 Sex: F Order #: [id number] Room: ERSDOB: 1995 X-Ray Number: [id number] Record Number: [id number] Hospital Number: [id number] Physician: BELINDA DIALLO -Ordering Physician: KIRILL HU 1 VIEW PORTABLE 03/30/2021 1:26 PM:History: Cough with fever . Covid 19 infection.Comparison: None.Technique: 1 view chestFindings:The cardiomediastinal silhouette is normal. The lungs are clear withoutinfiltrate, effusion, or pneumothorax. The bones are intact.Impression:No acute cardiopulmonary process.Electronically Signed By: Joe Collins M.D., 03/30/2021 2:15 PMLegally authenticated by JASON DIAZ 2021-03-30 14:15:16Chest X-ray AP portable single [id number] 14:17:00ORDER 100: CHEST 1 VIEW PORTABLE (LOINC: 78081-6)ORDER DATE: March 30, 2021 6:40:00 PM [facility])Chest X-ray AP portable single [id number] 14:17:00ORDER 100: CHEST 1 VIEW PORTABLE (LOINC: 13641-7)ORDER DATE: March 30, 2021 6:40:00 PM [facility])COVID SYMPTOMATIC ER ONLY 2021-03-30 12:50:00* Test Item Value Reference Range Interpretation Comme nts CORONAVIRUS (COVID-19)BY PCR (test code = FIQ44KVT) POSITIVE SARS-CoV-2 (COVID-19) N gene [Presence] in Drgn6618-85-30 12:50:00Positive [facility])Urinalysis specimen collection aqjxqn3840-42-96 11:52:00* Test Item Value Reference Range Interpretation Comme nts Urine Source (test code = 60488-5) URCATH [facility] HealthColor of Urine by Cnxg7522-06-23 11:52:00* Test Item Value Reference Range Interpretation Comme nts Urine Color (test code = 29288-7) Yellow Yel-Melissa * [facility] HealthUrine clarity lxevvnjxsyiot5927-60-05 11:52:00* Test Item Value Reference Range Interpretation Comme nts Urine Appearance (test code = 34114-6) Light Turbid Clear * [facility] HealthUrine pH measurement by automated test cinmz4924-83-51 11:52:00* Test Item Value Reference Range Interpretation Comme nts Urine pH (test code = 26972-0) 6.5 5.0-8.0 [facility] HealthSpecific gravity of Urine by Automated test upson0721-03-38 11:52:00* Test Item Value Reference Range Interpretation Comme nts Urine Specific Comptche (test code = 52622-6) 1.020 1.005-1.030 [facility] HealthUrine protein measurement by automated test strip (mass/volume) 2021-01-04 11:52:00* Test Item Value Reference Range Interpretation Comme nts Urine Protein (test code = 78229-3) 30 Negative * [facility] HealthUrine glucose measurement by automated test strip (mass/volume) 2021-01-04 11:52:00* Test Item Value Reference Range Interpretation Comme nts Urine Glucose (UA) (test cod e = 37160-0) Negative Negative * [facility] HealthKetones [Mass/volume] in Urine by Automated test nchwf8251-00-81 11:52:00* Test Item Value Reference Range Interpretation Comme nts Urine Ketones (test code = 04070-5) 10 Negative * [facility] HealthUrine erythrocytes count by automated test strip (number/volume) 2021-01-04 11:52:00* Test Item Value Reference Range Interpretation Comme nts Urine Occult Blood (test cod e = 05479-1) 3+ Negative * [facility] HealthUrine nitrite detection by automated test qoppy6496-18-96 11:52:00* Test Item Value Reference Range Interpretation Comme nts Urine Nitrite (test code = 37326-9) Negative Negative [facility] HealthUrine total bilirubin measurement by automated test strip (mass/volume)2021-01-04 11:52:00* Test Item Value Reference Range Interpretation Comme nts Urine Bilirubin (test code = 12361-2) Negative Negative [facility] HealthUrine urobilinogen measurement by automated test strip (mass/volume)2021-01-04 11:52:00* Test Item Value Reference Range Interpretation Comme nts Urine Urobilinogen (test cod e = 13930-6) Negative 0.0-1.0 [facility] HealthUrine leukocytes count by automated test strip (number/volume) 2021-01-04 11:52:00* Test Item Value Reference Range Interpretation Comme nts Urine Leukocyte Esterase (te st code = 54744-3) 75 Negative [facility] HealthUrine sediment erythrocyte count by microscopy (number/high power field)2021-01-04 11:52:00* Test Item Value Reference Range Interpretation Comme nts Urine RBC (test code = 22692-5) 11-30 0-2 [facility] HealthUrine sediment leukocyte count by microscopy (number/high power field)2021-01-04 11:52:00* Test Item Value Reference Range Interpretation Comme nts Urine WBC (test code = 5821-4) 6-20 0-5 [facility] HealthUrine sediment epithelial cell count by microscopy (number/high power field)2021-01-04 11:52:00* Test Item Value Reference Range Interpretation Comme nts Urine Epithelial Cells (test code = 5787-7) Few Few [facility] HealthUrine sediment crystal count by microscopy (number/high power field)2021-01-04 11:52:00* Test Item Value Reference Range Interpretation Comme nts Urine Crystals (test code = 00412-9) None Seen None * [facility] HealthUrine sediment bacteria count by microscopy (number/high power field)2021-01-04 11:52:00* Test Item Value Reference Range Interpretation Comme nts Urine Bacteria (test code = 5769-5) Few None [facility] HealthUrine sediment casts count by microscopy (number/low power field) 2021-01-04 11:52:00* Test Item Value Reference Range Interpretation Comme nts Urine Casts (test code = 9842-6) Present None * [facility] HealthYeast detection in urine sediment by light zxlqgntzwq5192-81-49 11:52:00* Test Item Value Reference Range Interpretation Comme nts Urine Yeast (test code = 04062-2) None Seen None [facility] HealthService comment 11:52:00* Test Item Value Reference Range Interpretation Comme nts Urinalysis Comment (test code = 8262-8) * See_Comment [Automated messa ge] The system which generated this result transmitted reference range: *. The reference range was not used to interpret this result as normal/abnormal. [facility] HealthService comment 11:52:00* Test Item Value Reference Range Interpretation Comme nts Urine Culture Indicated (sarah t code = 8264-4) To follow [facility] HealthVaginal fluid fibronectin nhpvcpeyn8133-04-53 12:00:00* Test Item Value Reference Range Interpretation Comme nts Fibronectin (test code = 16318-0) Negative See_Comment [Automated messa ge] The system which generated this result transmitted reference range: *. The reference range was not used to interpret this result as normal/abnormal. [facility] HealthSpecimen source [id number] 11:00:00* Test Item Value Reference Range Interpretation Comme nts SARS CoV-2 Rapid Source ([facility] t code = 87987-7) Nasal swab NICHOLAS De AndaSARS-CoV+SARS-CoV-2(COVID-19)Ag[Presence]2020-12-26 11:00:00* Test Item Value Reference Range Interpretation Comme nts SARS-CoV-2 Antigen (Rapid) ( test code = 25422-7) Negative Negative 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 aqtzsbr3360-95-69 11:00:00* Test Item Value Reference Range Interpretation Comme nts N/A (test code = 36555-7) No [facility] HealthPatient has symptoms for condition of hzfrknaq8268-48-70 11:00:00 * Test Item Value Reference Range Interpretation Comme nts N/A (test code = 64482-3) No NICHOLAS HealthPt hospitalized sac-osage hospitalakcc8095-39-69 11:00:00* Test Item Value Reference Range Interpretation Comme nts N/A (test code = 61189-8) No [facility] HealthPregnancy fbeiwq7361-41-11 11:00:00* Test Item Value Reference Range Interpretation Comme nts N/A (test code = 10483-6) [facility] HealthPatient resides in congregate care zsdmfxz3445-06-93 11:00:00* Test Item Value Reference Range Interpretation Comme nts N/A (test code = 51778-6) No [facility] HealthUrinalysis specimen collection rektcy7847-79-97 10:50:00* Test Item Value Reference Range Interpretation Comme nts Urine Source (test code = 97346-4) URINE [facility] HealthColor of Urine by Bcon7839-37-73 10:50:00* Test Item Value Reference Range Interpretation Comme nts Urine Color (test code = 67705-6) Yellow Yel-Melissa * [facility] HealthUrine clarity djvjsbwobklvj4576-83-22 10:50:00* Test Item Value Reference Range Interpretation Comme nts Urine Appearance (test code = 77027-1) Clear Clear * [facility] HealthUrine pH measurement by automated test hmusr0543-98-39 10:50:00* Test Item Value Reference Range Interpretation Comme nts Urine pH (test code = 85871-1) 6.0 5.0-8.0 [facility] HealthSpecific gravity of Urine by Automated test alrgo1383-72-35 10:50:00* Test Item Value Reference Range Interpretation Comme nts Urine Specific Comptche (test code = 09906-4) 1.029 1.005-1.030 [facility] HealthUrine protein measurement by automated test strip (mass/volume) 2020-12-26 10:50:00* Test Item Value Reference Range Interpretation Comme nts Urine Protein (test code = 54726-5) 10 Negative * [facility] HealthUrine glucose measurement by automated test strip (mass/volume) 2020-12-26 10:50:00* Test Item Value Reference Range Interpretation Comme nts Urine Glucose (UA) (test cod e = 85361-0) Negative Negative * [facility] HealthKetones [Mass/volume] in Urine by Automated test yrulb7882-06-59 10:50:00* Test Item Value Reference Range Interpretation Comme nts Urine Ketones (test code = 45680-0) Negative Negative * [facility] HealthUrine erythrocytes count by automated test strip (number/volume) 2020-12-26 10:50:00* Test Item Value Reference Range Interpretation Comme nts Urine Occult Blood (test cod e = 12624-7) Negative Negative * [facility] HealthUrine nitrite detection by automated test qcnfx6619-85-10 10:50:00* Test Item Value Reference Range Interpretation Comme nts Urine Nitrite (test code = 44021-5) Negative Negative [facility] HealthUrine total bilirubin measurement by automated test strip (mass/volume)2020-12-26 10:50:00* Test Item Value Reference Range Interpretation Comme nts Urine Bilirubin (test code = 60454-4) Negative Negative [facility] HealthUrine urobilinogen measurement by automated test strip (mass/volume)2020-12-26 10:50:00* Test Item Value Reference Range Interpretation Comme nts Urine Urobilinogen (test cod e = 55602-5) Negative 0.0-1.0 [facility] HealthUrine leukocytes count by automated test strip (number/volume) 2020-12-26 10:50:00* Test Item Value Reference Range Interpretation Comme nts Urine Leukocyte Esterase (te st code = 22132-3) 25 Negative [facility] HealthUrine sediment erythrocyte count by microscopy (number/high power field)2020-12-26 10:50:00* Test Item Value Reference Range Interpretation Comme nts Urine RBC (test code = 55938-8) 0-2 0-2 [facility] HealthUrine sediment leukocyte count by microscopy (number/high power field)2020-12-26 10:50:00* Test Item Value Reference Range Interpretation Comme nts Urine WBC (test code = 5821-4) 0-5 0-5 [facility] HealthUrine sediment epithelial cell count by microscopy (number/high power field)2020-12-26 10:50:00* Test Item Value Reference Range Interpretation Comme nts Urine Epithelial Cells (test code = 5787-7) None Seen Few [facility] HealthUrine sediment crystal count by microscopy (number/high power field)2020-12-26 10:50:00* Test Item Value Reference Range Interpretation Comme nts Urine Crystals (test code = 56090-4) None Seen None * [facility] HealthUrine sediment bacteria count by microscopy (number/high power field)2020-12-26 10:50:00* Test Item Value Reference Range Interpretation Comme nts Urine Bacteria (test code = 5769-5) Few None [facility] HealthUrine sediment casts count by microscopy (number/low power field) 2020-12-26 10:50:00* Test Item Value Reference Range Interpretation Comme nts Urine Casts (test code = 9842-6) Present None * [facility] HealthUrine sediment hyaline cast count by microscopy (number/low power field)2020-12-26 10:50:00* Test Item Value Reference Range Interpretation Comme nts Urine Hyaline Casts (test co de = 5796-8) 11-20 0-1 [facility] HealthYeast detection in urine sediment by light vnybxwuijl5549-12-30 10:50:00* Test Item Value Reference Range Interpretation Comme nts Urine Yeast (test code = 41237-8) None Seen None [facility] comment 10:50:00* Test Item Value Reference Range Interpretation Comme nts Urinalysis Comment (test code = 8262-8) * See_Comment [Automated messa ge] The system which generated this result transmitted reference range: *. The reference range was not used to interpret this result as normal/abnormal. [facility] comment 10:50:00* Test Item Value Reference Range Interpretation Comme nts Urine Culture Indicated (sarah t code = 8264-4) To follow [facility] HealthKetones [Mass/volume] in Urine by Automated test foepw8440-78-83 14:30:00* Test Item Value Reference Range Interpretation Comme nts Urine Ketones (test code = 30353-0) Negative Negative * [facility] HealthUrine erythrocytes count by automated test strip (number/volume) 2020-09-22 14:30:00* Test Item Value Reference Range Interpretation Comme nts Urine Occult Blood (test cod e = 52150-9) Negative Negative * [facility] HealthUrine nitrite detection by automated test hrrst1260-77-83 14:30:00* Test Item Value Reference Range Interpretation Comme nts Urine Nitrite (test code = 21919-7) Negative Negative [facility] HealthUrine total bilirubin measurement by automated test strip (mass/volume)2020-09-22 14:30:00* Test Item Value Reference Range Interpretation Comme nts Urine Bilirubin (test code = 89640-0) Negative Negative [facility] HealthUrine urobilinogen measurement by automated test strip (mass/volume)2020-09-22 14:30:00* Test Item Value Reference Range Interpretation Comme nts Urine Urobilinogen (test cod e = 49169-3) Negative 0.0-1.0 [facility] HealthUrine leukocytes count by automated test strip (number/volume) 2020-09-22 14:30:00* Test Item Value Reference Range Interpretation Comme nts Urine Leukocyte Esterase (te st code = 53287-3) 25 Negative [facility] HealthUrine sediment erythrocyte count by microscopy (number/high power field)2020-09-22 14:30:00* Test Item Value Reference Range Interpretation Comme nts Urine RBC (test code = 42898-8) 0-2 0-2 [facility] HealthUrine sediment leukocyte count by microscopy (number/high power field)2020-09-22 14:30:00* Test Item Value Reference Range Interpretation Comme nts Urine WBC (test code = 5821-4) 0-5 0-5 [facility] HealthUrine sediment epithelial cell count by microscopy (number/high power field)2020-09-22 14:30:00* Test Item Value Reference Range Interpretation Comme nts Urine Epithelial Cells (test code = 5787-7) None Seen Few [facility] HealthUrine sediment crystal count by microscopy (number/high power field)2020-09-22 14:30:00* Test Item Value Reference Range Interpretation Comme nts Urine Crystals (test code = 55666-7) None Seen None * [facility] HealthUrine sediment bacteria count by microscopy (number/high power field)2020-09-22 14:30:00* Test Item Value Reference Range Interpretation Comme nts Urine Bacteria (test code = 5769-5) Packed None [facility] HealthUrine sediment casts count by microscopy (number/low power field) 2020-09-22 14:30:00* Test Item Value Reference Range Interpretation Comme nts Urine Casts (test code = 9842-6) Present None * [facility] HealthUrine sediment hyaline cast count by microscopy (number/low power field)2020-09-22 14:30:00* Test Item Value Reference Range Interpretation Comme nts Urine Hyaline Casts (test co de = 5796-8) 11-20 0-1 [facility] HealthYeast detection in urine sediment by light bpjirylkcc1654-99-77 14:30:00* Test Item Value Reference Range Interpretation Comme nts Urine Yeast (test code = 56354-8) None Seen None [facility] comment [id number] 14:30:00* Test Item Value Reference Range Interpretation Comme nts Urinalysis Comment (test code = 8262-8) * See_Comment [Automated [employer] ge] The system which generated this result transmitted reference range: *. The reference range was not used to interpret this result as normal/abnormal. [facility] HealthUrinalysis specimen collection eeldlp6983-92-44 14:30:00* Test Item Value Reference Range Interpretation Comme nts Urine Source (test code = 07740-7) URINE [facility] HealthColor of Urine by Wmbw3509-13-26 14:30:00* Test Item Value Reference Range Interpretation Comme nts Urine Color (test code = 02573-8) Lt Yellow Yel-Melissa * [facility] HealthUrine clarity xmujylvbblolr7183-92-41 14:30:00* Test Item Value Reference Range Interpretation Comme nts Urine Appearance (test code = 27151-1) Clear Clear * [facility] HealthUrine pH measurement by automated test ueedo4608-32-41 14:30:00* Test Item Value Reference Range Interpretation Comme nts Urine pH (test code = 75292-9) 6.0 5.0-8.0 [facility] HealthSpecific gravity of Urine by Automated test xadqb7038-50-15 14:30:00* Test Item Value Reference Range Interpretation Comme [facility] Urine Specific Comptche (test code = 18830-9) 1.027 1.005-1.030 [facility] HealthUrine protein measurement by automated test strip (mass/volume) 2020-09-22 14:30:00* Test Item Value Reference Range Interpretation Comme [facility] Urine Protein (test code = 37161-0) Negative Negative * [facility] HealthUrine glucose measurement by automated test strip (mass/volume) 2020-09-22 14:30:00* Test Item Value Reference Range Interpretation Comme [facility] Urine Glucose (UA) (test cod e = 30453-8) Negative Negative * [facility] HealthVenous whole blood sodium measurement (moles/volume)2020-09-06 16:03:00* Test Item Value Reference Range Interpretation Comme [facility] Bedside Sodium (test code = 75850-6) 139 136-145 [facility] HealthVenous whole blood potassium measurement (moles/volume)2020-09-06 16:03:00* Test Item Value Reference Range Interpretation Comme [facility] Bedside Potassium (test code = 32130-9) 3.6 3.5-5.1 [facility] HealthVenous whole blood chloride measurement (moles/volume)2020-09-06 16:03:00* Test Item Value Reference Range Interpretation Comme [facility] Bedside Chloride (test code = 95427-4) 100 100-112 [facility] HealthVenous whole blood total carbon dioxide measurement (moles/volume)2020-09-06 16:03:00* Test Item Value Reference Range Interpretation Comme [facility] Bedside Total CO2 (test code = 2027-1) 25.0 24.0-33. 0 [facility] HealthVenous whole blood urea nitrogen (BUN) measurement (mass/volume) 2020-09-06 16:03:00* Test Item Value Reference Range Interpretation Comme [facility] Bedside Blood Urea Nitrogen (test code = 41166-0) 9 6-20 [facility] HealthBlood creatinine measurement (mass/volume)2020-09-06 16:03:00* Test Item Value Reference Range Interpretation Comme [facility] Bedside Creatinine (test cod e = 38038-8) 0.5 0.7-1.3 [facility] HealthVenous whole blood glucose measurement (mass/volume)2020-09-06 16:03:00* Test Item Value Reference Range Interpretation Comme [facility] Bedside Glucose (test code = 84209-0) 82 60-100 [facility] calcium measurement (moles/volume)2020-09-06 16:03:00* Test Item Value Reference Range Interpretation Comme [facility] Bedside Whole Blood Ionized Calcium (test code = 1994-3) 1.22 1.12-1.32 [facility] anion nlc5136-86-08 16:03:00* Test Item Value Reference Range Interpretation Comme [facility] Bedside Anion Gap (test code = 49147-5) 19 8-18 [facility] CenterGFR estimate RAQZ6179-09-57 16:03:00* Test Item Value Reference Range Interpretation Comme [facility] Estimat Glomerular Filtratio n Rate (test code = 238523282) 163 90-142 [facility] hemoglobin [facility] (mass/volume)2020-09-06 16:03:00* Test Item Value Reference Range Interpretation Comme [facility] Bedside Hemoglobin (test cod e = 39367-8) 13.6 12.0-15.2 [facility] hematocrit (volume fraction)2020-09-06 16:03:00* Test Item Value Reference Range Interpretation Comme [facility] Bedside Hematocrit (test cod e = 97629-0) 40.0 35.0-45.0 [facility] hematocrit (volume fraction)2020-09-06 16:03:00* Test Item Value Reference Range Interpretation Comme [facility] Bedside Hematocrit (test cod e = 48422-2) 40.0 Serum or plasma beta choriogonadotropin measurement (units/volume)2020-09-06 16:00:00* Test Item Value Reference Range Interpretation Comme [facility] Human Chorionic Gonadotropin , Quant (test code = 20147-7) 73568.9 See Comment [facility] CenterMicroscopic examination of eerli9413-46-53 15:50:00* Test Item Value Reference Range Interpretation Comme [facility] Microscopic Urinalysis (T) ( test code = 80768-5) ----- [facility] CenterService comment [id number] 15:50:00* Test Item Value Reference Range Interpretation Comme [facility] Urine Culture Indicated (sarah t code = 8264-4) To follow [facility] CenterUrinalysis specimen collection iazody1681-33-79 15:50:00* Test Item Value Reference Range Interpretation Comme nts Urine Source (test code = 20135-9) URINE [facility] HealthUrine color xlebaioqxyked1019-61-40 15:50:00* Test Item Value Reference Range Interpretation Comme nts Urine Color (test code = 5778-6) Yellow Yel-Melissa * [facility] HealthUrine clarity nlwvknsqrevqy8656-84-49 15:50:00* Test Item Value Reference Range Interpretation Comme nts Urine Appearance (test code = 40964-8) Turbid Clear * [facility] HealthUrine pH measurement by automated test eozde5380-46-74 15:50:00* Test Item Value Reference Range Interpretation Comme nts Urine pH (test code = 74501-2) 5.0 5.0-8.0 [facility] HealthSpecific gravity of Urine by Automated test xsehg9615-72-59 15:50:00* Test Item Value Reference Range Interpretation Comme nts Urine Specific Comptche (test code = 55939-0) 1.025 1.005-1.030 [facility] HealthUrine protein measurement by automated test strip (mass/volume) 2020-09-06 15:50:00* Test Item Value Reference Range Interpretation Comme nts Urine Protein (test code = 53531-9) Negative Negative * [facility] HealthUrine glucose measurement by automated test strip (mass/volume) 2020-09-06 15:50:00* Test Item Value Reference Range Interpretation Comme nts Urine Glucose (UA) (test cod e = 98200-1) Negative Negative * [facility] HealthKetones [Mass/volume] in Urine by Automated test gsijh0908-90-71 15:50:00* Test Item Value Reference Range Interpretation Comme nts Urine Ketones (test code = 51489-1) 150 Negative * [facility] HealthUrine erythrocytes count by automated test strip (number/volume) 2020-09-06 15:50:00* Test Item Value Reference Range Interpretation Comme nts Urine Occult Blood (test cod e = 63591-4) 25 Negative * [facility] nitrite detection by automated test [id number] 15:50:00* Test Item Value Reference Range Interpretation Comme nts Urine Nitrite (test code = 44455-9) Negative Negative [facility] total bilirubin measurement by automated test strip (mass/volume)2020-09-06 15:50:00* Test Item Value Reference Range Interpretation Comme nts Urine Bilirubin (test code = 77863-4) Negative Negative [facility] urobilinogen measurement by automated test strip (mass/volume)2020-09-06 15:50:00* Test Item Value Reference Range Interpretation Comme nts Urine Urobilinogen (test cod e = 80546-2) Negative 0.0-1.0 [facility] leukocytes count by automated test strip (number/volume) 2020-09-06 15:50:00* Test Item Value Reference Range Interpretation Comme nts Urine Leukocyte Esterase (te st code = 19530-2) 500 Negative [facility] sediment erythrocyte count by microscopy (number/high power field)2020-09-06 15:50:00* Test Item Value Reference Range Interpretation Comme nts Urine RBC (test code = 34858-9) 0-2 0-2 [facility] sediment leukocyte count by microscopy (number/high power field)2020-09-06 15:50:00* Test Item Value Reference Range Interpretation Comme nts Urine WBC (test code = 5821-4) 0-5 0-5 [facility] sediment epithelial cell count by microscopy (number/high power field)2020-09-06 15:50:00* Test Item Value Reference Range Interpretation Comme nts Urine Epithelial Cells (test code = 5787-7) Many Few [facility] sediment crystal count by microscopy (number/high power field)2020-09-06 15:50:00* Test Item Value Reference Range Interpretation Comme nts Urine Crystals (test code = 20778-4) None Seen None * [facility] sediment bacteria count by microscopy (number/high power field)2020-09-06 15:50:00* Test Item Value Reference Range Interpretation Comme nts Urine Bacteria (test code = 5769-5) Frequent None [facility] sediment casts count by microscopy (number/low power field) 2020-09-06 15:50:00* Test Item Value Reference Range Interpretation Comme nts Urine Casts (test code = 9842-6) None Seen None * [facility] HealthYeast detection in urine sediment by light [id number] 15:50:00* Test Item Value Reference Range Interpretation Comme nts Urine Yeast (test code = 47408-3) None Seen None [facility] comment [id number] 15:50:00* Test Item Value Reference Range Interpretation Comme nts Urinalysis Comment (test code = 8262-8) * See_Comment [Automated messa ge] The system which generated this result transmitted reference range: *. The reference range was not used to interpret this result as normal/abnormal. [facility]M [id number] 17:15:00* Test Item Value Reference Range Interpretation Comme nts ISTATNA (test code = ISTATNA) 139 MMOL/L 137-145 ISTATK (test code = ISTATK) 3.6 MMOL/L 3.6-5.0 ISTATCL (test code = ISTATCL) 104 MMOL/L 98-107 ISTIONCA (test code = ISTIONCA) 1.29 MMOL/L 1.12-1.32 ISTCO2 (test code = ISTCO2) 23 MMOL/L 22-30 ISTATGLU (test code = ISTATGLU) 69 MG/DL 65-110 ISTATBUN (test code = ISTATBUN) 7.0 MG/DL 7.0-20.0 ISTCREA (test code = ISTCREA) 0.4 MG/DL 0.7-1.5 L ISTATHCT (test code = ISTATHCT) 35 %PCV 37.0-52.0 L ISTATHGB (test code = ISTATHGB) 11.9 G/DL 12.0-18.0 L Notified Nurse/M D of results outside of Reference Ranges ISTANGAP (test code = ISTANGAP) 16 MMOL/L Notified Nurse/M D of results outside of Reference Ranges ER SCREEN FOR HIV 15:55:00* Test Item Value Reference Range Interpretation Comme nts HIV 1/2 AB (test code = SCRN HIV) NEGATIVE NEGATIVE This test is us ed for SCREENING purposes only. All reactive results are prelimenary and confirmation results will follow. ABO/[id number] 15:50:00* Test Item Value Reference Range Interpretation Comme nts BLOOD TYPE (test code = TYPE) A Rh Positive Comment for Females Rhogam may be indicated for patient depending baby's Rh status. [id number] 15:06:00* Test Item Value Reference Range Interpretation Comme nts GLUCOSE (test code = URGLU) NEGATIVE MG/DL NEG-100 BILIRUBN (test code = URBILI) NEGATIVE NEGATIVE KETONE (test code = URKET) TRACE MG/DL NEGATIVE BLOOD (test code = URBLD) NEGATIVE UR PH (test code = URPH) 5.5 5.0-7.5 PROTEIN (test code = URPRO) NEGATIVE MG/DL NEGATIVE NITRITES (test code = URNIT) NEGATIVE NEGATIVE UROBILINGEN (test code = URURO) 0.2 EU/DL 0.2-1.0 LEUKOCYT (test code = URLEU) SMALL NEGATIVE UA COLOR (test code = UA COLOR) YELLOW YELLOW CLARITY (test code = CLARITY) CLOUDY CLEAR SP GRAV (test code = URSPGRAV) 1.027 1.000-1.025 H UAMICRO (test code = UAMICRO) YES WBC (test code = URWBC) 7 /HPF 0-5 H RBC (test code = URRBC) 1 /HPF 0-2 CASTS (test code = CAST) 22 /LPF 0-3 H UR EPI (test code = EPI) 143 /LPF BACTERIA (test code = BACTERIA) TRACE NONE US OB <14 [id number] 14:33:00 [facility] 1995 Sex: F[address], [place] [address]HSIJBJCKEV IMAGING REPORTPatient Name: SAM HURTADODate of Service: [id number]: 23 Sex: F Order #: [id number]: ERSDOB: 1995 X-Ray Number: [id number] Record Number: [id number] Hospital Number: [id number] Physician: VINCENT GUILLENOrdering Physician: Ilia GUILLENited OB ultrasound.History: Pelvic pain for one dayTechnique: Transabdominal limited OB ultrasound images were obtained andreviewed.Findings:The uterus measures 9.2 x 5.7 x 8.1 cm. The cervix measures 2.6 cm. Thereisan intrauterine with a crown-rump length of 1.9 cm consistentwith 8 weeks, 4 days. The amniotic fluid index is within normal limits.There is cardiac activity with a heart rate of 169 b pm. Fetalmovement is present. The yolk sac measures [...] heart tones are present.Electronically Signed By: Carlos Venegas M.D., 07/04/2020 2:30 PM Legally authenticated by THEO GEIGER JR 2020-07-04 14:30:[id number] 14:25:00* Test Item Value Reference Range Interpretation Comme nts WBC (test code = WBC) 6.3 K/UL 3.5-10.9 RBC (test code = RBC) 4.33 M/UL 4.0-5.0 HGB (test code = HGB) 11.5 G/DL 11.5-15.5 HCT (test code = HCT) 36.1 % 34-46 MCV (test code = MCV) 83.4 FL 80-98 MCH (test code = MCH) 26.6 PG 28-32 L MCHC (test code = MCHC) 31.9 G/DL 32.5-36.5 L RDW (test code = RDW) 13.2 % 11.5-14.5 PLT (test code = PLT) 353 K/UL 150-450 MPV (test code = MPV) 10.8 FL 7.4-10.4 H MANDIFF (test code = MANDIFF) NO SCAN (test code = SCAN) NO NEUT% (test code = NEUT%) 53.4 % 40-75 LYMPH% (test code = LYMPH%) 38.9 % 24-44 MONO% (test code = MONO%) 7.0 % 0-13 EOS% (test code = EOS%) 0.2 % 0-4 BASO % (test code = BASO%) 0.3 % 0-2 IG (test code = IG) 0 % 0-1 IG% (test code = IG%) 0.2 % 0-1 IG% = Metamyeloc ytes, Myelocytes, and Promyelocytes. (Immature neutrophils not including "bands".) > 3% IG indicates risk of sepsis NRBC% (test code = NRBC%) 0 /100 WBC ABS NEUT (test code = NEUT) 3.3 K/UL 1.2-7.2 Notes Assessment/Plan:AssessmentBased on today's visit:PlanCurrent medication list and any new medications prescribed or recommended today Date/Time Note Provider Source 2024-11-23 11:35:37 Analilia Wilcox NP - 11/23/2024 10:20 AM CDT Virtual Visit Subjective: Subjective Patient ID: Sam Hurtado is a 29 y.o. female. HPI Patient presents with sore throat for 4 days. Son +strep. No OTC at this time. No CP, SOB, N/V/D. Tolerating fluids. Mouth or throat complaint Duration of current symptoms: 4 days Associated symptoms: ear pain and sore throat Special considerations: Exposure to illness Review of Systems Constitutional: Negative. HENT: Positive for ear pain and sore throat. Eyes: Negative. Respiratory: Negative. Cardiovascular: Negative. Gastrointestinal: Negative. Endocrine: Negative. Genitourinary: Negative. Musculoskeletal: Negative. Skin: Negative. Allergic/Immunologic: Negative. Neurological: Negative. Hematological: Negative. Psychiatric/Behavioral: Negative. Social History Tobacco Use Smoking Status Never Smokeless Tobacco Never History reviewed. No pertinent past medical history. History reviewed. No pertinent surgical history. No family history on file. Objective: Objective Physical Exam Vitals reviewed. Constitutional: General: She is awake. She is not in acute distress. Appearance: Normal appearance. She is not ill-appearing or toxic-appearing. HENT: Head: Normocephalic. Right Ear: Hearing and external ear normal. Left Ear: Hearing and external ear normal. Nose: Nose normal. Right Sinus: No maxillary sinus tenderness or frontal sinus tenderness. Left Sinus: No maxillary sinus tenderness or frontal sinus tenderness. Mouth/Throat: Lips: [place]. Mouth: Mucous membranes are moist. Pharynx: Posterior oropharyngeal erythema present. Tonsils: Tonsillar exudate present. No tonsillar abscesses. 1+ on the right. 1+ on the left. Eyes: General: Lids are normal. Extraocular Movements: Extraocular movements intact. Conjunctiva/sclera: Conjunctivae normal. Pupils: Pupils are equal, round, and reactive to light. Neck: Comments: Patient instructed to palpate lymph nodes, patient demonstrated appropriate palpation and reports slight tenderness on right and left cervical lymph nodes. Pulmonary: Effort: Pulmonary effort is normal. No respiratory distress. Comments: Speaks in full sentences, no conversational dyspnea noted, voice sounds normal without a congested or raspy quality. Denies any respiratory complications; none noted with deep inhalation and exhalation,

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
--- NOTE | 2024-11-23 15:42 | ER ---
Nurse's Notes [facility] Name: Edin Hurtado Age: 29 yrs Sex: Female : 1995 Arrival Date: 11/23/2024 Time: 14:20 Bed IW2 Private MD: Diagnosis: Aphthous ulcer Presentation: 11/23 14:25 Chief complaint: Patient states: has had a sore throat and white spots in her throat X iw 4 days. Coronavirus screen: At this time, the client does not indicate any symptoms associated with coronavirus-19. Ebola Screen: No symptoms or risks identified at this time. Initial Sepsis Screen: Does the patient meet any 2 criteria? No. Patient's initial sepsis screen is negative. Does the patient have a suspected source of infection? No. Patient's initial sepsis screen is negative. Risk Assessment: Do you want to hurt yourself or someone else? Patient reports no desire to harm self or others. 14:25 Method Of Arrival: Ambulatory iw 14:25 Acuity: DIXON 4 iw 14:27 Onset of symptoms was November 21, 2024. 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 - Infectious Disease History:: Denies. - Social history:: Smoking status: Reported history of juuling and/or vaping. Vital Signs: 14:27 BP 108 / 81; Pulse 80; Resp 16; Pulse Ox 100% on R/A; Weight 64.86 kg; Height 5 ft. 4 iw in. ; Pain 8/10; 14:27 Body Mass Index 24.55 (64.86 kg, 162.56 cm) iw 14:27 Pain Scale: Adult iw ED Course: 14:22 Patient arrived in ED. mr 14:22 Ngoc Hill FNP-C is PHCP. kb 14:22 Matthew Allen MD is Attending Physician. kb 14:26 Triage completed. iw 14:29 Arm band placed on. iw Administered Medications: No medications were administered Outcome: 15:41 Discharge ordered by . kb 15:58 Patient left the ED. iw Signatures: Ngoc Hill, DANIAL-C TIMBER DEADENER-Ckb Carley Avery, Reg Reg mr Varsha Mckay, RN RN iw Corrections: (The following items were deleted from the chart) 14:27 14:25 Chief complaint: Patient states: has had a sore throat and white spots in her iw throat iw 14:28 14:27 BP 108 / 81; Pulse 80bpm; Resp 16bpm; Pulse Ox 100% RA; iw iw
[2024-11-23 19:56] VITALS: BP 108/81; O2SAT 100
== END 2024-11-23 15:58 | disposition home or self-care (01) ==
LOC: ER 14:20
DX: K12.0 Recurrent oral aphthae (principal)
CPT/HCPCS: 36415; 87070; 99281

== ENCOUNTER 2025-01-26 13:21 | Emergency (ER) | payer OTHER ==
[2025-01-26] MEDS ORDERED: KETOROLAC 30 MG/ML INJ ONE (13:56)
[2025-01-26] MEDS ORDERED: ACETAMINOPHEN 500 MG TAB ONE (13:57)
[2025-01-26 14:45] LABS: Influenza A Ag Negative; Influenza B Ag Negative; SARS-CoV-2 Antigen Rapid Res Negative (Negative)
--- NOTE | 2025-01-26 15:47 | RAD REPORT ---
EXAMINATION: ONE VIEW CHEST XR CLINICAL INDICATION: Cough;Congestion TECHNIQUE: Frontal chest projection is submitted. Examination is limited by patient positioning and t echnique. COMPARISON: 01/19/2023 FINDINGS: The lungs are well inflated and clear. The heart is upper limit of normal in size. No displaced fract ures identified. IMPRESSION: No acute intrathoracic abnormalities.
--- NOTE | 2025-01-26 16:31 | EDPHYS ---
Physician Documentation [facility] Name: Edin Hurtado Age: 29 yrs Sex: Female : 1995 Arrival Date: 01/26/2025 Time: 13:21 Bed IW10 Private MD: ED Physician Lenin Mahajan HPI: 01/26 14:44 This 29 yrs old Black Female presents to ER via Ambulatory with complaints of Flu dr5 Symptoms. 14:44 Onset: The symptoms/episode began/occurred this morning. Patient is a 29-year-old dr5 female with no past medical history coming in with flulike symptoms, cough, body aches that started this morning. Patient reports her 4-year-old also has same symptoms and is being checked out today. Patient denies chest pain, shortness of breath, abdominal pain, nausea, vomiting, diarrhea. Patient denies taking medication prior to arrival. Patient reports headache.. 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 - Infectious Disease History:: Denies. - Social history:: Smoking status: Reported history of juuling and/or vaping. ROS: 14:44 Constitutional: as per hpi dr5 Exam: 14:44 Constitutional: This is a well developed, well nourished patient who is awake, alert, dr5 and in no acute distress. Head/Face: Normocephalic, atraumatic. Eyes: Pupils equal round and reactive to light, extra-ocular motions intact. Lids and lashes normal. Conjunctiva and sclera are non-icteric and not injected. Cornea within normal limits. Periorbital areas with no swelling, redness, or edema. Neck: Trachea midline, no thyromegaly or masses palpated, and no cervical lymphadenopathy. Supple, full range of motion without nuchal rigidity, or vertebral point tenderness. No Meningismus. Chest/axilla: Normal chest wall appearance and motion. Nontender with no deformity. No lesions are appreciated. Cardiovascular: Regular rate and rhythm with a normal S1 and S2. Normal PMI, no JVD. No pulse deficits. Respiratory: Lungs have equal breath sounds bilaterally, clear to auscultation. No rales, rhonchi or wheezes noted. No increased work of breathing, no retractions or nasal flaring. Abdomen/GI: Soft, non-tender, non-distended Back: No spinal tenderness. No costovertebral tenderness. Full range of motion. Skin: Warm, dry with normal turgor. Normal color with no rashes, no lesions, and no evidence of cellulitis. MS/ Extremity: Pulses equal, no cyanosis. Neurovascular intact. Full, normal range of motion. Neuro: Awake and alert, GCS 15, oriented to person, place, time, and situation. Cranial nerves II-XII grossly intact. Motor strength 5/5 in all extremities. Sensory grossly intact. Cerebellar exam normal. Normal gait. Vital Signs: 13:42 BP 134 / 82; Pulse 92; Resp 19; Temp 100; Pulse Ox 100% ; Weight 66.68 kg; ap3 14:50 BP 122 / 69; Pulse 101; Resp 18; Pulse Ox 99% ; rg5 MDM: 13:25 Medical Screening Exam initiated dr5 15:04 Differential diagnosis: viral Infection, bacterial infection, URI, bronchitis, dr5 pneumonia. Data reviewed: vital signs, nurses notes, lab test result(s), Flu: negative COVID Negative, Strep Negative, radiologic studies. Consideration of Admission/Observation Escalation of care including admission/observation considered. Escalation considered if patient found to be hypoxic . I considered the following discharge prescriptions or medication management in the emergency department I discussed and recommended Over The Counter medications, Medications were administered in the Emergency Department. See MAR. Independent interpretation of the following test(s) in the Emergency Department X-Ray: My interpretation is Independent interpretation of x-ray does not reveal infiltrates concerning for pneumonia. Historians other than the Patient: Spouse/Significant Other: Significant Other. Care significantly affected by the following Social Determinants of Health: Poor access to healthcare and/or lack of insurance, Poor access to transportation, Problems related to employment. Counseling: I had a detailed discussion with the patient and/or guardian regarding the historical points, exam findings, and any diagnostic results supporting the discharge/admit diagnosis, the presence of at least one elevated blood pressure reading (>120/80) during this emergency department visit, lab results, radiology results, the need for outpatient follow up, for definitive care, a family practitioner, to return to the emergency department if symptoms worsen or persist or if there are any questions or concerns that arise at home. Medication response: Acetaminophen. Response to treatment: the patient's symptoms have mildly improved after treatment. ED course: Patient tootie was diagnosed with influenza A in ER today. Will cover patient with Tamiflu due to likely viral infection happening right now. Recommend increase hydration. Alternate Tylenol Motrin as needed for pain and fever. All questions answered. Strict ER precautions given. 01/26 13:26 Order name: COVID-19 Ag + Flu A+B Ag; Complete Time: 14:48 dr5 01/26 13:26 Order name: Group A Streptococcus Rapid; Complete Time: 14:21 dr5 01/26 14:13 Order name: Throat Culture EDRI 01/26 13:41 Order name: Chest Single View XRAY; Complete Time: 15:56 dr5 Administered Medications: 14:03 Drug: Ketorolac IM 30 mg IM once Route: IM; Site: right deltoid; rg5 16:52 Follow up: Response: No adverse reaction; Pain is decreased rg5 14:04 Drug: Acetaminophen PO 1000 mg PO once Route: PO; rg5 16:52 Follow up: Response: No adverse reaction; Pain is decreased rg5 Disposition Summary: 01/26/25 16:30 Discharge Ordered Notes: Location: Home dr5 Condition: Stable dr5 Diagnosis - Influenza due to identified novel influenza A virus dr5 Followup: dr5 - With: Emergency Department - When: As needed - Reason: Worsening of condition Followup: dr5 - With: Private Physician - When: 1 - 2 days - Reason: Recheck today's complaints, Continuance of care, Re-evaluation by your physician Discharge Instructions: - Discharge Summary Sheet dr5 - Influenza, Adult dr5 Forms: - Work release form dr5 - Medication Reconciliation Form dr5 - Patient Portal Instructions dr5 - Leadership Thank You Letter dr5 Prescriptions: - Zofran 4 mg Oral Tablet - take 1 tablet ORAL route every 12 hours As needed; 20 tablet; Refills: 0, dr5 Product Selection Permitted - Tamiflu 75 mg Oral capsule - take 1 tablet ORAL route every 12 hours for 5 days; 10 tablet; Refills: 0, dr5 Product Selection Permitted Signatures: Dispatcher [employer] Glendy Vega RN RN ap3 Tanvir Tolentino RN RN rg5 Benson Bailey, LINING CLOSER-C LINING CLOSER-Cdr5
--- NOTE | 2025-01-26 16:31 | ER ---
Nurse's Notes [facility] Name: Edin Hurtado Age: 29 yrs Sex: Female : 1995 Arrival Date: 01/26/2025 Time: 13:21 Bed IW10 Private MD: Diagnosis: Influenza due to identified novel influenza A virus Presentation: 01/26 13:42 Chief complaint: Patient states: she woke up this morning with body aches, chills, and ap3 "not feeling well". Coronavirus screen: Client presents with at least one sign or symptom that may indicate coronavirus-19. Ebola Screen: No symptoms or risks identified at this time. Initial Sepsis Screen: Does the patient meet any 2 criteria? HR > 90 bpm. Does the patient have a suspected source of infection? No. Patient's initial sepsis screen is negative. Risk Assessment: Do you want to hurt yourself or someone else? Patient reports no desire to harm self or others. Onset of symptoms was January 26, 2025. 13:42 Method Of Arrival: Ambulatory ap3 13:42 Acuity: DIXON 3 ap3 Triage Assessment: 13:44 General: Appears uncomfortable, ill, Behavior is crying, Reports chills for fever for ap3 feeling ill for fatigue for. Pain: Complains of pain in generalized body aches. Neuro: Level of Consciousness is awake, alert, obeys commands, Oriented to person, place, time, situation, Appropriate for age. Cardiovascular: Patient's skin is warm and dry. Respiratory: Reports cough that is Airway is patent Respiratory effort is even, unlabored, Respiratory pattern is regular, symmetrical. 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 - Infectious Disease History:: Denies. - Social history:: Smoking status: Reported history of juuling and/or vaping. Screenin:44 [facility] ED Fall Risk Assessment (Adult) History of falling in the last 3 months, ap3 including since admission No falls in past 3 months (0 pts) Confusion or Disorientation No (0 pts) Intoxicated or Sedated No (0 pts) Impaired Gait No (0 pts) Mobility Assist Device Used No (0 pt) Altered Elimination No (0 pt) Score/Fall Risk Level 0 - 2 = Low Risk Oriented to surroundings, Maintained a safe environment, Educated pt \\T\\ family on fall prevention, incl call for assistance when getting out of bed, Assessed \\T\\ reinforced patient's understanding of fall precautions, Hourly rounding (assess needs \\T\\ fall precautionary measures) done, Used ambulatory aids as needed (educated on \\T\\ assisted with). Abuse screen: Denies threats or abuse. Nutritional screening: No deficits noted. Tuberculosis screening: No symptoms or risk factors identified. Assessment: 13:45 General: Appears in no apparent distress. uncomfortable, Behavior is calm, cooperative, rg5 appropriate for age, Reports fatigue for 0-12 hours. Pain: Complains of pain in body Quality of pain is described as aching. Neuro: Oriented to person, place, time, situation, Reports headache. Cardiovascular: Denies chest pain, Patient's skin is warm and dry. Respiratory: Airway is patent Respiratory effort is even, unlabored, Respiratory pattern is regular, symmetrical. GI: Abdomen is round non-distended. : No signs and/or symptoms were reported regarding the genitourinary system. EENT: No signs and/or symptoms were reported regarding the EENT system. Derm: Skin is intact, Skin is dry, Skin is normal, Skin temperature is warm. Musculoskeletal: Circulation, motion, and sensation intact. Range of motion: intact in all extremities. 14:49 Reassessment: Patient and/or family updated on plan of care and expected duration. Pain rg5 level reassessed. Patient is alert, oriented x 3, equal unlabored respirations, skin warm/dry/pink. Patient states symptoms have improved. 15:30 Reassessment: Patient and/or family updated on plan of care and expected duration. Pain rg5 level reassessed. Patient is alert, oriented x 3, equal unlabored respirations, skin warm/dry/pink. Patient states feeling better. Patient states symptoms have improved. 16:11 Reassessment: Patient and/or family updated on plan of care and expected duration. Pain rg5 level reassessed. Patient is alert, oriented x 3, equal unlabored respirations, skin warm/dry/pink. Vital Signs: 13:42 BP 134 / 82; Pulse 92; Resp 19; Temp 100; Pulse Ox 100% ; Weight 66.68 kg; ap3 14:50 BP 122 / 69; Pulse 101; Resp 18; Pulse Ox 99% ; rg5 ED Course: 13:24 Patient arrived in ED. al6 13:25 Benson [facility]5 13:25 Lenin Mahajan MD is Attending Physician. dr5 13:43 Tanvir Tolentino, RN is Primary Nurse. rg5 13:43 Triage completed. ap3 13:45 Arm band placed on right wrist. ap3 13:45 Patient has correct armband on for positive identification. Call light in reach. Side rg5 rails up X 1. Adult w/ patient. Door closed. Noise minimized. 13:45 Patient maintains SpO2 saturation greater than 95% on room air. rg5 14:14 No provider procedures requiring assistance completed. rg5 15:42 Chest Single View XRAY In Process Unspecified. EDMS 16:53 Patient did not have IV access during this emergency room visit. rg5 Administered Medications: 14:03 Drug: Ketorolac IM 30 mg IM once Route: IM; Site: right deltoid; rg5 16:52 Follow up: Response: No adverse reaction; Pain is decreased rg5 14:04 Drug: Acetaminophen PO 1000 mg PO once Route: PO; rg5 16:52 Follow up: Response: No adverse reaction; Pain is decreased rg5 Medication: 14:14 VIS not applicable for this client. rg5 Outcome: 16:30 Discharge ordered by . dr5 16:53 Discharged to home ambulatory, rg5 16:53 Condition: stable 16:53 Discharge instructions given to patient, Instructed on discharge instructions, Demonstrated understanding of instructions, Prescriptions given X 2, 16:53 Patient left the ED. rg5 Signatures: Dispatcher [employer] EDMS Glendy Bess RN RN ap3 Tanvir Tolentino, SANDRA FOLRES rg5 Benson Bailey FNP-C [facility]5 Claudine Del Real al6
[2025-01-26 17:32] VITALS: TEMP 100
[2025-01-26 17:34] VITALS: BP 122/69; O2SAT 99
== END 2025-01-26 16:53 | disposition home or self-care (01) ==
LOC: ER 13:21
DX: J10.1 Influenza due to other identified influenza virus with other respiratory manifestations (principal); Z11.52 Encounter for screening for COVID-19
CPT/HCPCS: 87070; 36415; 71045; 96372; 99284; 87428; J1885